=== PATIENT | male | born 1970 | race Two or more races ===

== ENCOUNTER 2025-04-15 17:36 | Inpatient (IN) | payer MEDICAID, OTHER, SELFPAY ==
[2025-04-15 17:55] VITALS: BP 150/79; PULSE 89; RESP 18; TEMP 37.2; O2SAT 99; BMI 36.7
[2025-04-15 18:01] VITALS: BP 150/79; PULSE 89; RESP 18; TEMP 37.2; O2SAT 99
--- NOTE | 2025-04-15 18:02 | ED.GENADULT ---
HPI - General Adult General Chief complaint: Psychiatric Symptoms Stated complaint: depression Time Seen by Provider: 04/15/25 17:59 Source: patient, RN notes reviewed and video journalist (jerri) Mode of arrival: EMS Limitations: language barrier History of Present Illness HPI narrative: 54-year-old male presents via EMS for evaluation of suicidal ideation. The patient has a long history of depression, reports being at [facility] where he was transported from, because he was recently at [facility] for treatment of depression. Patient states he was discharged too early from his treatment center. He does not feel that he receive the help that he wanted. 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 Patient denies any homicidal ideation. He does confirm that he has had suicidal ideation without a specific plan. He denies any SI at this time. He does report being homeless. 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 Patient states he has been battling severe depression. He has no physical complaints at this time. Related Data Home Medications ?Medication ?Instructions ?Recorded ?Confirmed amlodipine 10 mg tablet 10 mg PO DAILY 04/15/25 04/15/25 clonazepam 2 mg tablet 2 mg PO BID 04/15/25 04/16/25 doxepin 50 mg capsule 50 mg PO BEDTIME 04/15/25 04/15/25 fenofibrate 50 mg capsule 145 mg PO DAILY 04/15/25 04/15/25 hydrocortisone 1 % topical cream 1 appl topical BID PRN Itching 04/15/25 04/15/25 lithium carbonate 150 mg capsule 300 mg PO QNOON 04/15/25 04/15/25 lithium carbonate 300 mg tablet 600 mg PO BEDTIME 04/15/25 04/15/25 lurasidone 40 mg tablet 40 mg PO QPM 04/15/25 04/15/25 melatonin 3 mg tablet 6 mg PO BEDTIME 04/15/25 04/15/25 meloxicam 15 mg tablet 15 mg PO DAILY 04/15/25 04/15/25 sertraline 50 mg tablet 50 mg PO DAILY 04/15/25 04/15/25 Allergies Allergy/AdvReac Type Severity Reaction Status Date / Time No Known Allergies (No Known Allergy Unverified 04/15/25 17:59 Allergies*) Review of Systems Constitutional: Constitutional: Denies headache(s) ENT: Denies headache(s) Cardiovascular: Cardiovascular: Denies chest pain at rest Respiratory: Respiratory: Denies cough Neurologic: Denies headache(s) Psychiatric: Psychiatric: Reports anxiety and Reports depression [facility] Social History Social History (System 11/03/24 @ 10:30 by Miesha Wade) Household Members: None Housing: Homeless Do you presently have visiting nurse or other home services: No Patient Tobacco Use Status: Never used Tobacco Smoked in Last 30 Days: No Use of substances other than those prescribed or required for medical reasons: No Have you been hit, kicked, punched, or otherwise hurt by someone within the past year? If so, by whom?: No Do you feel safe in your current relationship?: No Current Relationship Is there a partner from a previous relationship who is making you feel unsafe now?: No Are you made to feel afraid or neglected: No Advance Directives: No Advance Directives Information Provided: No Do you have a plan to hurt others: No Plan Recently lost weight without trying: No How much weight loss: Not applicable Eating poorly because of decreased appetite: No Nutrition screen score: 0 Nutrition Risks: No Nutritional Risk Poor oral hygiene: No Physical Exam ED Vital Signs: Vital Signs - 24 hr 04/17/25 16:28 04/18/25 06:34 Temperature 97.3 F 97.4 F Pulse Rate 72 64 Respiratory Rate 18 16 Blood Pressure 134/77 114/77 Pulse Oximetry 98 98 Oxygen Delivery Method Room Air Room Air BMI result Body Mass Index 36.7 Eyes General: appearance normal, both eyes and all related structures Resp Other: Lung sounds clear throughout Cardio Rate: regular rate Rhythm: regular rhythm Extrem Other: no calf tenderness or pedal edema bilaterally Psych Other: tearful Appearance: other Affect: Anxious affect present Attitude: cooperative Course Course Course Narrative: April 15, 2025, 8:00 p.m. patient with mild elevation in BUN and creatinine. Suspect mild dehydration. He is unaware of any known history of renal disease. Patient will be given IV fluids. JS April 15, 2025, 8:50 p.m. patient seen and evaluated by the care team, he will be a inpatient bed search. JS. April 15, 2025, 10:00 p.m. patient resting comfortably at this time. Bed search continues. CHRIS Time: 02:00 Date: 04/16/25 Provider: OWEN Beltran Patient in physician observation for psychiatric evaluation.? No acute events reported overnight. No current complaints. VS stable.? Patient is in bed search status/pending CARE team evaluation. Will continue to monitor. Reevaluation(s) Reevaluation #1: Time: 10:48 Date: 04/17/25 Provider: Joaquin Guadarrama MD Patient in physician observation for psychiatric evaluation.? No acute events reported overnight. No current complaints. VS stable.? Patient is in bed search status/pending CARE team evaluation. Will continue to monitor. Reevaluation #2: 9:43 AM 04/18/2025 (Dr. Freeman Mast): Patient in physician observation for psychiatric evaluation.? No acute events reported overnight. Medications Administered Generic Name Dose Route Start Last Admin Trade Name Freq PRN Reason Stop Dose Admin Amlodipine Besylate 10 mg 04/15/25 19:00 04/18/25 08:54 Amlodipine Besylate 10 Mg Tablet PO 10 mg DAILY JOSEFA Administration Protocol Clonazepam 2 mg 04/16/25 21:00 04/18/25 08:54 Clonazepam 1 Mg Tablet PO 2 mg BID JOSEFA Administration Doxepin HCl 50 mg 04/15/25 21:00 04/17/25 20:17 Doxepin Hcl 25 Mg Capsule PO 50 mg BEDTIME JOSEFA Administration Fenofibrate 134 mg 04/16/25 09:00 04/18/25 09:40 Fenofibrate,Micronized 134 Mg Capsule PO 134 mg DAILY JOSEFA Administration Hydrocortisone 1 appl 04/15/25 18:53 04/18/25 09:39 Hydrocortisone 1 % Cream 28.35 Gm Tube TOPICAL 1 appl BID PRN Administration Itching Protocol [place] Carbonate 300 mg 04/16/25 12:00 04/18/25 12:14 [place] Carbonate 300 Mg Capsule PO 300 mg DAILY@1200 JOSEFA Administration [place] Carbonate 600 mg 04/15/25 21:00 04/17/25 20:17 [place] Carbonate 300 Mg Capsule PO 600 mg BEDTIME JOSEFA Administration Lurasidone HCl 40 mg 04/15/25 19:00 04/17/25 20:17 Lurasidone Hcl 40 Mg Tablet PO 40 mg BEDTIME JOSEFA Administration Melatonin 6 mg 04/15/25 21:00 04/17/25 20:17 Melatonin 3 Mg Tablet PO 6 mg BEDTIME JOSEFA Administration Naproxen 500 mg 04/15/25 21:00 04/18/25 08:54 Naproxen 500 Mg Tablet PO 500 mg BID JOSEFA Administration Sertraline HCl 50 mg 04/15/25 19:00 04/18/25 08:54 Sertraline Hcl 50 Mg Tablet PO 50 mg DAILY JOSEFA Administration Discontinued Medications Generic Name Dose Route Start Last Admin Trade Name [place] PRN Reason Stop Dose Admin Clonazepam 4 mg 04/15/25 19:00 04/16/25 09:00 Clonazepam 1 Mg Tablet PO 2 mg DAILY JOSEFA Administration Sodium Chloride 1,000 mls @ 999 mls/hr 04/15/25 20:15 04/15/25 22:00 Ns IV 04/15/25 21:15 Infused .Q1H1M JOSEFA Infusion Medical Decision Making Medical Decision Making MDM Narrative: 54-year-old male with a history of depression, increased depression as well as suicidal ideation. Differential Diagnosis Differential Diagnoses: The differential diagnosis associated with the presentation includes Depression PTSD Psychosis Anxiety Admission/Observation Consideration of admission/observation: Escalation of care including admission/observation considered Lab Data 04/15/25 18:48 04/15/25 18:48 Labs: Lab Results 04/15/25 04/15/25 Range/Units 18:48 20:45 WBC 7.6 (4.8-10.8) X10*3/uL RBC 4.60 (4.60-5.80) X10*6/uL Hgb 13.3 L (14.0-18.0) g/dl Hct 39.4 L (42.0-52.0) % MCV 85.7 (80.0-98.0) fL MCH 28.9 (27.0-33.0) pg MCHC 33.8 (31.0-36.0) g/dl RDW 13.5 (11.0-16.0) % Plt Count TNP MPV 12.0 (9.4-12.4) fL Immature Gran % (Auto) 0.4 (0.0-0.4) % Neut % (Auto) 67.5 (45-73) % Lymph % (Auto) 20.7 (20-40) % [place] % (Auto) 7.2 (2-11) % Eos % (Auto) 3.4 (0-4) % Baso % (Auto) 0.8 (0-2) % Lymph # (Auto) 1.6 (1.2-4.9) X10*3/uL [place] # (Auto) 0.6 (0.1-1.2) X10*3/uL Eos # (Auto) 0.3 (0.0-0.4) X10*3/uL Baso # (Auto) 0.1 (0.0-0.2) X10*3/uL Abs Immat Gran (auto) 0.03 (0.00-0.03) X10*3/uL Absolute Neuts (auto) 5.1 (2.0-8.3) x10*3/uL Absolute Nucleated RBC 0.000 (0.0-0.012) X10*3/uL Nucleated RBC % (auto) 0.0 (0.0-0.2) /100WBC Smear Tech's Comments VERIFIED Sodium 140 (135-145) mmol/L Potassium 3.7 (3.3-5.1) mmol/L Chloride 105 (96-108) mmol/L Carbon Dioxide 23 (22-29) mmol/L Anion Gap 16 (12-20) BUN 17 H (9-16) mg/dL Creatinine 1.69 H (0.5-1.4) mg/dL Estim Creat Clear Calc 47.0 Estimated GFR 42 Random Glucose 73 (60-115) mg/dL Calcium 9.9 (8.4-10.2) mg/dL Total Bilirubin 0.3 (0.0-1.0) mg/dL AST 26 (5-37) U/L ALT 18 (0-40) U/L Alkaline Phosphatase 74 (39-117) U/L Total Protein 7.3 (6.5-8.0) g/dL Albumin 4.3 (3.5-5.0) g/dL Urine Color Yellow Urine Appearance Clear Urine pH 7.0 (5.0-9.0) Ur Specific [place] 1.010 (1.005-1.025) Urine Protein Negative (Neg-Trace) mg/dL Urine Glucose (UA) Negative (Negative) mg/dL Urine Ketones Negative (Negative) mg/dL Urine Blood Negative (Negative) Urine Nitrite Negative (Negative) Ur Leukocyte Esterase Negative (Negative) Salicylates < 5.0 L (15-30) mg/dL Urine Opiates Screen Not Detected (Not Detect) Ur Buprenorphine Scrn Not Detected (Not Detect) ng/mL Ur Oxycodone Screen Not Detected (Not Detect) ng/mL Urine Methadone Screen Not Detected (Not Detect) ng/mL Urine Fentanyl Screen Not Detected (Not Detect) Acetaminophen < 3 (<30) mcg/mL Ur Barbiturates Screen Not Detected (Not Detect) Ur Phencyclidine Scrn Not Detected (Not Detect) Ur Amphetamines Screen Not Detected (Not Detect) U Benzodiazepines Scrn POSITIVE H (Not Detect) [place] 0.74 (0.60-1.20) mmol/L Urine Cocaine Screen Not Detected (Not Detect) U Marijuana (THC) Screen Not Detected (Not Detect) Ethyl Alcohol < 10 mg/dL Discharge Plan Discharge Clinical Impression: Suicidal ideation, Depression Patient Disposition: Admitted As Inpatient Discharge Date/Time: 04/18/25 13:13
--- NOTE | 2025-04-15 18:05 | PC.NURSE ---
Addendum entered by Karley Bee RN 04/15/25 18:37: Pts medications not populated for med rec therefore each medication was manually entered by this RN based on information on Rx bottles. tube blower Haley assists with interpretation of instructions on some Rx bottle as they are in [place]. Pt reports he last took his medications on 04/14/25 and is due for his meds at this time. Med Red completed at this time. ED Provider Shai made aware for ordering. Custody of medications to be handed off to on coming overnight RN for inventory and securement in the pharmacy due to time constraints. Original Note: Pt comes to ED via EMS for severe depression. EMS reports Pt called after leave [facility] and being kicked out of his [employer] [facility] program for threatening to shoot staff. On arrival to [facility], Pt is tearful and reports thoughts of SI with no plan. He states he is homeless now with no program to go to. He denies any HI at this time. 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 Pt arrives with bag of personal medications. Medications will be inventoried, med rec will be completed, and meds will be sent to pharmacy. ED provider at bedside now.
--- OUTSIDE RECORDS SUMMARY | 2025-04-15 18:47 | XMS_ITS | Encounter Summary ---
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 Answer Date of Assessment Author No 02/13/2025 9:45 PM EDT Michael Funes RN * Are you blind or do you have serious difficulty seeing, even when wearing glasses? Answer Date of Assessment Author No 02/13/2025 9:45 PM PERLITAT Michael Funes RN * Do you have serious difficulty walking or climbing stairs? Answer Date of Assessment Author No 02/13/2025 9:45 PM Michael Richard RN * Do you have serious difficulty dressing or bathing? Answer Date of Assessment Author No 02/13/2025 9:45 PM Michael Richard RN * Because of a physical, mental, or emotional condition, do you have serious difficulty doing errandsalone such as visiting the doctor? Answer Date of Assessment Author No 02/13/2025 9:45 PM EDT Michael Funes RN documented as of this encounter Mental Status * Because of a physical, mental, or emotional condition, do you have serious difficulty concentrating, remembering, or making decisions? (5 years old or older) Answer Entry Date Author No 02/13/2025 9:45 PM EDT Michael Funes RN documented in this encounter Plan of Treatment Not on file documented as of this encounter Procedures Procedure Name Priority Date/Time Associated Diagnosis Comments BASIC METABOLIC PANEL Routine 02/16/2025 7:00 AM EDT Other group home (current) drug therapy documented in this encounter Results * (ABNORMAL) Basic metabolic panel (02/16/2025 7:00 AM EDT) Sodium 138 133 - 145 mmol/L LAB CHEMISTRY METHOD 02/16/2025 12:10 PM [facility] Potassium 5.0 3.5 - 5.5 mmol/L LAB CHEMISTRY METHOD 02/16/2025 12:10 PM [facility] Comment:Hemolysis present Chloride 106 96 - 110 mmol/L LAB CHEMISTRY METHOD 02/16/2025 12:10 PM [facility] CO2 23 21 - 32 mmol/L LAB CHEMISTRY METHOD 02/16/2025 12:10 PM [facility] Anion Gap 9 3 - 11 LAB CHEMISTRY METHOD 02/16/2025 12:10 PM [facility] Glucose 49(L) 70 - 100 mg/dL LAB CHEMISTRY METHOD 02/16/2025 12:10 PM [facility] Comment:Results verified by repeat testing BUN 23 5 - 25 mg/dL LAB CHEMISTRY METHOD 02/16/2025 12:10 PM [facility] Creatinine 1.19 0.70 - 1.30 mg/dL LAB CHEMISTRY METHOD 02/16/2025 12:10 PM [facility] eGFR 73 >=60 mL/min/1. 73m2 LAB CHEMISTRY METHOD 02/16/2025 12:10 PM EDT [facility] Comment:Calculation based on the Chronic Kidney Disease Epidemiology Collaboration (CKD-EPI) equation refit without adjustment for race. BUN/Creatinine Ratio 19.3 LAB CHEMISTRY METHOD 02/16/2025 12:10 PM EDT [facility] Calcium 9.5 8.5 - 10.5 mg/dL LAB CHEMISTRY METHOD 02/16/2025 12:10 PM EDT [facility] Blood Venous blood specimen / Unknown Venipuncture / Unknown 02/16/2025 7:00 AM EDT 02/16/2025 10:04 AM EDT us Delores Thomson BEADER TENDER LAB BLOOD ORDERABLES Final Result [facility] [address] [place] [address], documented in this encounter Visit Diagnoses Diagnosis Other group home (current) drug therapy documented in this encounter Care Teams Call Center Team Leader Relationship Specialty Start Date End Date Physician, No Pcp PCP - General 01/03/25 documented as of this encounter
--- OUTSIDE RECORDS SUMMARY | 2025-04-15 18:47 | XMS_ITS | Clinical Summary ---
Author Organization [facility] Address [address] [place] [address] Phone Care Team Providers Care Commutator Tester Name Role Phone Physician, No Pcp Primary Care Provider Unavaila ble Allergies No known active allergies Medications diclofenac (VOLTAREN) 1 % topical gel Apply 2 g topically 2 (two) times a day. Active fenofibrate (TRICOR) 145 mg tablet Take 1 tablet (145 mg total) by mouth 1 (one) time each day. Active sertraline (ZOLOFT) 100 mg tablet Take 1.5 tablets (150 mg total) by mouth 1 (one) time each day. Active meloxicam (MOBIC) 15 mg tablet Take 1 tablet (15 mg total) by mouth 1 (one) time each day. Active clonazePAM (KlonoPIN) 2 mg tablet Take 1 tablet (2 mg total) by mouth 2 (two) times a day. Max Daily Amount: 4 mg Active amLODIPine (NORVASC) 5 mg tablet Take 1 tablet (5 mg total) by mouth 1 (one) time each day. Active gabapentin (NEURONTIN) 800 mg tablet Take 1 tablet (800 mg total) by mouth 3 (three) times a day. Active lithium 600 mg capsule Take 1 capsule (600 mg total) by mouth at bedtime. Active melatonin 3 mg tablet Take 2 tablets (6 mg total) by mouth at bedtime. Active cloNIDine (CATAPRES) 0.1 mg tablet Take 1 tablet (0.1 mg total) by mouth 1 (one) time each day. Active doxepin (SINEquan) 50 mg capsule Take 1 capsule (50 mg total) by mouth at bedtime. Active lurasidone (LATUDA) 60 mg tablet Take 1 tablet (60 mg total) by mouth at bedtime. Active lithium 300 mg capsule Take 1 capsule (300 mg total) by mouth 1 (one) time each day. Active Encounters Date Type Department Care Team Description 02/16/2025 Lab Requisition [facility] - Main Lab [address] [place] [address] Delores Thomson FNP Other fdc (current) drug therapy 02/16/2025 Lab Requisition [facility] - Main Lab [address] [place] [address] Albertina Garcia NP Other fdc (current) drug therapy 02/13/2025 9:24 PM EDT - 02/15/2025 2:00 PM EDT Emergency [facility] Emergency [address] [place] [address] Gloria Jackson DO Landry, Jonathan P, MD Suicidal ideation (Primary Dx); Visual hallucination; Polysubstance abuse ([facility] V24, [facility] V28) Discharge Disposition: Psych[facility] Hospital from Last 3 Months Medical History Medical History Date Comments DJD (degenerative joint disease) per EMR/ chronic pain left knee Bipolar 2 disorder ([facility] V24, [facility] V28) per emr Hypertension per emr Hepatitis C per EMR Social History Tobacco Use Types Packs/Day Years Used Date Smoking Tobacco: Never Tobacco Cessation:Counseling Given: Not Answered Alcohol Use Standard Drinks/Week Comments Not Currently 0 (1 standard drink = 0.6 oz pur e alcohol) Sex and Gender Information Value Date Recorded Sex Assigned at Not on file Legal Sex Male 5:01 AM EST Gender Identity Not on file Sexual Orientation Not on file Obstetrics History Last Filed Vital Signs Vital Sign Reading Time Taken Comments Blood Pressure 141/87 02/15/2025 1:29 PM EDT Pulse 82 02/15/2025 1:29 PM EDT Temperature 36.6 C (97.9 F) 02/15/2025 1:29 PM EDT Respiratory Rate 18 02/15/2025 1:29 PM EDT Oxygen Saturation 96% 02/15/2025 1:29 PM EDT Inhaled Oxygen Concentration - - Weight 90.7 kg (200 lb) 02/13/2025 9:44 PM EDT Height 152.4 cm (5') 02/13/2025 9:44 PM EDT Body Mass Index 39.06 02/13/2025 9:44 PM EDT Plan of Treatment Health Maintenance Due Date Last Done Comments Hepatitis A Vaccines (1 of 2 - Risk 2-dose series) 1989 Hepatitis B Vaccines (1 of 3 - 19+ 3-dose series) 1989 Pneumococcal Vaccine: 50+ Years (1 of 1 - PCV) 2020 Zoster Vaccines (1 of 2) 2020 Colorectal Cancer Screening: Colonoscopy 07/07/2022 HIV Screening 07/07/2022 Hepatitis C Screening 07/07/2022 Social Influencers of Health Screening 07/07/2022 Depression Screening 08/04/2024 COVID-19 Vaccine ( season) 2025 01/03/2021, 12/12/2020 Influenza Vaccine (#1) 2025 04/19/2021 Hypertension/CHF/CAD Annual BMP Blood Test 02/16/2026 02/16/2025, 02/14/2025, 02/13/2025, Additional history exists Cholesterol Screening (Lipid Panel) 02/16/2030 02/16/2025, 11/04/2022, 12/08/2020 DTaP,Tdap,and Td Vaccines (2 - Td or Tdap) 04/19/2031 04/19/2021 HIB Vaccines Aged Out No longer eligi ble based on patient's age to complete this topic HPV Vaccines Aged Out No longer eligi ble based on patient's age to complete this topic IPV Vaccines Aged Out No longer eligi ble based on patient's age to complete this topic MMR Vaccines Aged Out No longer eligi ble based on patient's age to complete this topic Meningococcal ACWY Vaccine Aged Out N o longer eligible based on patient's age to complete this topic Meningococcal B Vaccine Aged Out No l onger eligible based on patient's age to complete this topic RSV Immunization Patients Under 20 months Aged Out No longer eligible based on patient's age to complete this topic Varicella Vaccines Aged Out No longer eligible based on patient's age to complete this topic Procedures Procedure Name Priority Date/Time Associated Diagnosis Comments BASIC METABOLIC PANEL Routine 02/16/2025 7:00 AM EDT Other material assembler (current) drug therapy HEMOGLOBIN A1C Routine 02/16/2025 7:00 AM EDT Other material assembler (current) drug therapy LIPID PANEL WITH REFLEX TO DIRECT LDL Routine 02/16/2025 7:00 AM EDT Other fdc (current) drug therapy GLUCOSE, RANDOM Routine 02/16/2025 7:00 AM EDT Other fdc (current) drug therapy CT HEAD WO CONTRAST STAT 02/15/2025 1 2:35 PM EDT ECG 12-LEAD STAT 02/14/2025 3:59 AM EDT BASIC METABOLIC PANEL STAT 02/14/2025 3:37 AM EDT ECG ANNOTATED 02/14/2025 CBC WITH AUTO DIFFERENTIAL STAT 02/13/2025 10:08 PM EDT METHADONE SCREEN, URINE STAT 02/13/2025 10:08 PM EDT PHENCYCLIDINE, URINE STAT 02/13/2025 10:08 PM EDT BUPRENORPHINE SCREEN, URINE STAT 02/13/2025 10:08 PM EDT DRUG ABUSE SCREEN 8A PANEL, URINE STAT 02/13/2025 10:08 PM EDT SALICYLATE LEVEL STAT 02/13/2025 10:0 8 PM EDT ACETAMINOPHEN LEVEL STAT 02/13/2025 1 0:08 PM EDT ETHANOL STAT 02/13/2025 10:08 PM EDT COMPREHENSIVE METABOLIC PANEL STAT 02/13/2025 10:08 PM EDT CBC AND DIFFERENTIAL STAT 02/13/2025 10:08 PM EDT from Last 3 Months Results * (ABNORMAL) Lipid panel with reflex to direct LDL (02/16/2025 7:00 AM EDT) Cholesterol 190 0 - 200 mg/dL LAB CHEMISTRY METHOD 02/16/2025 12:36 PM EDT [facility] Triglycerides 88 0 - 150 mg/dL LAB CHEMISTRY METHOD 02/16/2025 12:36 PM EDT [facility] HDL 71 >=40 mg/dL LAB CHEMISTRY METHOD 02/16/2025 12:36 PM EDT [facility] LDL Calculated 101(H) 0 - 100 mg/dL LAB CHEMISTRY METHOD 02/16/2025 12:36 PM EDT [facility] VLDL Cholesterol Prieto 17.6 mg/dL LAB CHEMISTRY METHOD 02/16/2025 12:36 PM EDT [facility] Non HDL Chol. (LDL+VLDL) 119 <145 mg/dL LAB CHEMISTRY METHOD 02/16/2025 12:36 PM EDT [facility] Chol/HDL Ratio 2.7 0.0 - 4.4 LAB CHEMISTRY METHOD 02/16/2025 12:36 PM EDT [facility] Blood Venous blood specimen / Unknown Venipuncture / Unknown 02/16/2025 7:00 AM EDT 02/16/2025 10:07 AM EDT us Albertina Moya NP LAB BLOOD ORDERABLES Final Re sult [facility] [address] [place] [address], * Hemoglobin A1c (02/16/2025 7:00 AM EDT) Hemoglobin A1C 5.3 <6.5 % LAB CHEMISTRY METHOD 02/16/2025 12:37 PM EDT [facility] Mean Bld Glu Estim. 105 mg/dL LAB CHEMISTRY METHOD 02/16/2025 12:37 PM EDT [facility] Blood Venous blood specimen / Unknown Venipuncture / Unknown 02/16/2025 7:00 AM EDT 02/16/2025 10:07 AM EDT us Albertina Staple V, WAY INSPECTOR LAB BLOOD ORDERABLES Final Re sult Performing Organization Address [facility]/ZIP Co de Phone Number [facility] [address] [place] [address], [place] [phone] * (ABNORMAL) Glucose, random (02/16/2025 7:00 AM EDT) Glucose 49(L) 70 - 100 mg/dL LAB CHEMISTRY METHOD 02/16/2025 12:35 PM EDT [facility] Blood Venous blood specimen / Unknown Venipuncture / Unknown 02/16/2025 7:00 AM EDT 02/16/2025 10:07 AM EDT us Albertina Staple V, WAY INSPECTOR LAB BLOOD ORDERABLES Final Re sult Performing Organization Address [facility] de Phone Number [facility] [address] [place] [address], [place] [phone] * (ABNORMAL) Basic metabolic panel (02/16/2025 7:00 AM EDT) Only the most recent of2 resultswithin the time period is included. Sodium 138 133 - 145 mmol/L LAB CHEMISTRY METHOD 02/16/2025 12:10 PM EDT [facility] Potassium 5.0 3.5 - 5.5 mmol/L LAB CHEMISTRY METHOD 02/16/2025 12:10 PM EDT [facility] Comment:Hemolysis present Chloride 106 96 - 110 mmol/L LAB CHEMISTRY METHOD 02/16/2025 12:10 PM EDT [facility] CO2 23 21 - 32 mmol/L LAB CHEMISTRY METHOD 02/16/2025 12:10 PM EDT [facility] Anion Gap 9 3 - 11 LAB CHEMISTRY METHOD 02/16/2025 12:10 PM EDT [facility] Glucose 49(L) 70 - 100 mg/dL LAB CHEMISTRY METHOD 02/16/2025 12:10 PM EDT [facility] Comment:Results verified by repeat testing BUN 23 5 - 25 mg/dL LAB CHEMISTRY METHOD 02/16/2025 12:10 PM EDT [facility] Creatinine 1.19 0.70 - 1.30 mg/dL LAB CHEMISTRY METHOD 02/16/2025 12:10 PM EDT [facility] eGFR 73 >=60 mL/min/1. 73m2 LAB CHEMISTRY METHOD 02/16/2025 12:10 PM EDT [facility] Comment:Calculation based on the Chronic Kidney Disease Epidemiology Collaboration (CKD-EPI) equation refit without adjustment for race. BUN/Creatinine Ratio 19.3 LAB CHEMISTRY METHOD 02/16/2025 12:10 PM EDT [facility] Calcium 9.5 8.5 - 10.5 mg/dL LAB CHEMISTRY METHOD 02/16/2025 12:10 PM EDT [facility] Blood Venous blood specimen / Unknown Venipuncture / Unknown 02/16/2025 7:00 AM EDT 02/16/2025 10:04 AM EDT us Delores Thomson CONSERVATION BIOLOGY PROFESSOR LAB BLOOD ORDERABLES Final Result [facility] [address] [place] [address], * CT Head wo Contrast (02/15/2025 12:35 PM EDT) Anatomical Region Laterality Modality Head and Neck Computed Tomogra phy 02/15/2025 1:07 PM EDT Impressions 02/15/2025 1:08 PM EDT No acute findings. -------- FINAL REPORT -------- Dictated By: Price Tyler Dictated Date: 02/15/2025 13:07 ET Assigned Physician: Price Tyler Reviewed and Electronically Signed By: Price Tyler Signed Date: 02/15/2025 13:08 ET Workstation ID: [id number] Transcribed By: Self Edit Transcribed Date: 02/15/2025 13:07 ET Narrative 02/15/2025 1:08 PM EDT PROCEDURE: Noncontrast head CT. HISTORY: Mental status change, unknown cause. COMPARISON: None. TECHNIQUE: Noncontrast head CT with coronal and sagittal reformats. Dose length product: 809 mGy-cm. FINDINGS: BRAIN: No hemorrhage, edema, mass, or extra-axial fluid collection. No CT evidence of an acute large vessel infarct. Ventricles and sulci are age commensurate. Atherosclerotic calcifications of the carotid siphons. ORBITS: Normal. SINUSES/MASTOIDS: Normal. CALVARIUM: Normal. OTHER: The skull base soft tissues are normal. Procedure Note Price Tyler MD - 02/15/2025 PROCEDURE: Noncontrast head CT. HISTORY: Mental status change, unknown cause. COMPARISON: None. TECHNIQUE: Noncontrast head CT with coronal and sagittal reformats. Dose length product: 809 mGy-cm. FINDINGS: BRAIN: No hemorrhage, edema, mass, or extra-axial fluid collection. No CTevidence of an acute large vessel infarct. Ventricles and sulci are agecommensurate. Atherosclerotic calcifications of the carotid siphons. ORBITS: Normal. SINUSES/MASTOIDS: Normal. CALVARIUM: Normal. OTHER: The skull base soft tissues are normal. IMPRESSION: No acute findings. -------- FINAL REPORT -------- Dictated By: Price Tyler Dictated Date: 02/15/2025 13:07 ET Assigned Physician: Price Tyler Reviewed and Electronically Signed By: Price Tyler Signed Date: 02/15/2025 13:08 ET Workstation ID: [id number] Transcribed By: Self Edit Transcribed Date: 02/15/2025 13:07 ET Michael Moseley MD IMG CT PROCEDURES Final Res ult * ECG 12 lead (02/14/2025 3:59 AM EDT) Ventricular Rate ECG 77 BPM GEMUSE Atrial Rate 77 BPM GEMUSE P-R Interval 138 ms GEMUSE QRS Duration 90 ms GEMUSE Q-T Interval 428 ms GEMUSE QTc 484 ms GEMUSE P Wave [place] 59 degrees GEMUSE R [place] -3 degrees GEMUSE T [place] 4 degrees GEMUSE ECG Interpretation Normal sinus rhythm Nonspecific T wave abnormality Prolonged QT Abnormal ECG No previous ECGs available Confirmed by TANMAY MOORE ([id number]) on 02/14/2025 9:00:39 AM GEMUSE 02/14/2025 3:59 AM EDT 02/14/2025 9:00 AM EDT Lenny Nelson MD ECG ORDERABLES Final Result GEMUSE * ECG-Annotated (02/14/2025) Provider Onbase MD ECG ORDERABLES Final Result * (ABNORMAL) Drug abuse screen 8a panel, urine (02/13/2025 10:08 PM EDT) Amphetamine Screen, Ur Negative Negative LAB CHEMISTRY METHOD 10:44 PM EDT [facility] Comment:Certain OTC medicati ons containing ephedrine, phenylephrine, pseudoephedrine and phenylpropanolamine can cause false positive results. Barbiturate Screen, Ur Negative Negative LAB CHEMISTRY METHOD 5 10:44 PM EDT [facility] Benzodiazepine Screen, Ur Positive(A ) Negative LAB CHEMISTRY METHOD 10:44 PM EDT [facility] Cocaine Screen, Ur Positive(A ) Negative LAB CHEMISTRY METHOD 5 10:44 PM EDT [facility] Opiate Screen, Ur Negative Negative LAB CHEMISTRY METHOD 5 10:44 PM EDT [facility] Cannabinoid (THC) Screen, Ur Negative Negative LAB CHEMISTRY METHOD 5 10:44 PM EDT [facility] Comment:Specimens from patie nts taking pantoprazole sodium (Protonix) have been shown to produce false positive results. Oxycodone Screen, Ur Negative Negative LAB CHEMISTRY METHOD 5 10:44 PM EDT [facility] Fentanyl, Ur Negative Negative LAB CHEMISTRY METHOD 5 10:44 PM EDT [facility] Urine Urine specimen obtained by clean catch procedure / Unknown Non-blood Collection / Unknown 02/13/2025 10:08 PM EDT 02/13/2025 10:19 PM EDT [facility] - 02/13/2025 10:44 PM EDT Assay cutoffs: Amphetamines 1000 ng/mL Barbiturates 200 ng/mL Benzodiazepines 200 ng/mL Cocaine 300 ng/mL Fentanyl 1 ng/mL Opiates 300 ng/mL Oxycodone 100 ng/mL THC 50 ng/mL Semi-quantitative assay for screening purposes only. Unconfirmed screening result should not be used for non-medical purposes. *ALTERNATE METHOD CONFIRMATION DONE UPON REQUEST ONLY* Lenny Nelson MD LAB URINE ORDERABLES Final R esult [facility] [address] [place] [address], * Buprenorphine screen, urine (02/13/2025 10:08 PM EDT) Buprenorphine Screen Urine Negative Negative LAB CHEMISTRY METHOD 02/13/2025 10:44 PM EDT [facility] Urine Urine specimen obtained by clean catch procedure / Unknown Non-blood Collection / Unknown 02/13/2025 10:08 PM EDT 02/13/2025 10:19 PM EDT Narrative [facility] - 02/13/2025 10:44 PM EDT Assay cutoff 5 ng/mL Semi-quantitative assay for screening purposes only. Unconfirmed screening result should not be used for non-medical purposes. *ALTERNATE METHOD CONFIRMATION DONE UPON REQUEST ONLY* Lenny Nelson MD LAB URINE ORDERABLES Final R esult Performing Organization Address City/[facility]/ZIP Co de Phone Number [facility] [address] [place] [address], [place] [phone] * Methadone, urine (02/13/2025 10:08 PM EDT) Methadone Screen, Urine Negative Negative LAB CHEMISTRY METHOD 02/13/2025 10:44 PM EDT [facility] Comment: Assay cutoff 300 ng/mL Semi-quantitative assay for screening purposes only. Unconfirmed screening result should not be used for non-medical purposes. *ALTERNATE METHOD CONFIRMATION DONE UPON REQUEST ONLY* Urine Urine specimen obtained by clean catch procedure / Unknown Non-blood Collection / Unknown 02/13/2025 10:08 PM EDT 02/13/2025 10:19 PM EDT Lenny Nelson MD LAB URINE ORDERABLES Final R esult Performing Organization Address City/[facility]/ZIP Co de Phone Number [facility] [address] [place] [address], [place] [phone] * (ABNORMAL) CBC auto differential (02/13/2025 10:08 PM EDT) WBC 10.0 4.8 - 10.8 K/[facility] LAB HEMETOLOGY METHOD 02/13/2025 10:25 PM EDT [facility] RBC 4.60 4.50 - 5.50 M/mcL LAB HEMETOLOGY METHOD 02/13/2025 10:25 PM EDT [facility] Hemoglobin 13.3(L) 13.5 - 17.5 g/dL LAB HEMETOLOGY METHOD 02/13/2025 10:25 PM EDT [facility] Hematocrit 40.4(L) 42.0 - 54.0 % LAB HEMETOLOGY METHOD 02/13/2025 10:25 PM EDT [facility] MCV 87.4 79.0 - 98.0 FL LAB HEMETOLOGY METHOD 02/13/2025 10:25 PM EDT [facility] MCH 28.8 27.0 - 32.0 pcg LAB HEMETOLOGY METHOD 02/13/2025 10:25 PM EDT [facility] MCHC 32.9 32.0 - 37.0 g/dL LAB HEMETOLOGY [facility] RDW 14.2 11.0 - 15.0 % LAB HEMETOLOGY METHOD 02/13[facility]2025 10[facility] Platelets 251 130 - 400 K/mcL LAB HEMETOLOGY METHOD 02/13/2025 10:25 PM [facility] MPV 11.4(H) 7.0 - 11.0 FL LAB HEMETOLOGY METHOD 02/13[facility]2025 10[facility] NRBC 0.0 <1.0 % LAB HEMETOLOGY METHOD 02/13[facility]2025 10:[facility] NRBC Absolute 0.00 <0.10 K/mcL LAB HEMETOLOGY METHOD 02/13/2025 10:25 PM T [facility] Neutrophils Relative 76.5 % LAB HEMETOLOGY METHOD 02/13[facility]2025 10:[facility] Lymphocytes Relative 13.5 % LAB HEMETOLOGY METHOD 02/13/2025 10:25 PM [facility] Monocytes Relative 7.8 % LAB HEMETOLOGY METHOD 02/13/2025 10:25 PM EDT [facility] Eosinophils Relative 1.4 % LAB HEMETOLOGY METHOD 02/13/2025 10:25 PM EDT [facility] Basophils Relative 0.6 % LAB HEMETOLOGY METHOD 02/13/2025 10:25 PM EDT [facility] Immature Granulocytes Relative 0.2 % LAB HEMETOLOGY METHOD 02/13/2025 10:25 PM EDT [facility] Neutrophils Absolute 7.66(H) 1.50 - 7.00 K/mcL LAB HEMETOLOGY METHOD 02/13/2025 10:25 PM EDT [facility] Lymphocytes Absolute 1.35 1.00 - 5.00 K/mcL LAB HEMETOLOGY METHOD 02/13/2025 10:25 PM EDT [facility] Monocytes Absolute 0.78 0.20 - 1.00 K/mcL LAB HEMETOLOGY METHOD 02/13/2025 10:25 PM EDT [facility] Eosinophils Absolute 0.14 0.00 - 0.50 K/mcL LAB HEMETOLOGY METHOD 02/13/2025 10:25 PM EDT [facility] Basophils Absolute 0.06 0.00 - 0.20 K/mcL LAB HEMETOLOGY METHOD 02/13/2025 10:25 PM EDT [facility] Immature Granulocytes Absolute 0.02 0.00 - 0.03 K/mcL LAB HEMETOLOGY METHOD 02/13/2025 10:25 PM EDT [facility] Blood Venous blood specimen / Unknown Venipuncture / Unknown 02/13/2025 10:08 PM EDT 02/13/2025 10:18 PM EDT us Lenny Nelson MD LAB BLOOD ORDERABLES Final R esult [facility] [address] [place] [address], * Phencyclidine, urine (02/13/2025 10:08 PM EDT) PCP Scrn, Ur Negative Negative LAB CHEMISTRY METHOD 02/13/2025 10:44 PM EDT [facility] Comment: Assay cutoff 25 ng/mL Semi-quantitative assay for screening purposes only. Unconfirmed screening result should not be used for non-medical purposes. *ALTERNATE METHOD CONFIRMATION DONE UPON REQUEST ONLY* Urine Urine specimen obtained by clean catch procedure / Unknown Non-blood Collection / Unknown 02/13/2025 10:08 PM EDT 02/13/2025 10:19 PM EDT Lenny Nelson MD LAB URINE ORDERABLES Final R esult Performing Organization Address City/[facility]/ZIP Co de Phone Number [facility] [address] [place] [address], * Ethanol (02/13/2025 10:08 PM EDT) Ethanol Level <3 0 - 10 mg/dL LAB CHEMISTRY METHOD 02/13/2025 10:47 PM EDT [facility] Blood Venous blood specimen / Unknown Venipuncture / Unknown 02/13/2025 10:08 PM EDT 02/13/2025 10:18 PM EDT Lenny Nelson MD LAB BLOOD ORDERABLES Final R esult [facility] [address] [place] [address], [place] [phone] * (ABNORMAL) Acetaminophen level (02/13/2025 10:08 PM EDT) Acetaminophen Level <2.0(L) 10.0 - 30.0 mcg/mL LAB CHEMISTRY METHOD 02/13/2025 10:48 PM EDT [facility] Blood Venous blood specimen / Unknown Venipuncture / Unknown 02/13/2025 10:08 PM EDT 02/13/2025 10:18 PM EDT Lenny Nelson MD LAB BLOOD ORDERABLES Final R esult [facility] [address] [place] [address], [place] [phone] * (ABNORMAL) Salicylate level (02/13/2025 10:08 PM EDT) Salicylate Level <1.7(L) 2.0 - 29.0 mg/dL LAB CHEMISTRY METHOD 02/13/2025 10:47 PM EDT [facility] Blood Venous blood specimen / Unknown Venipuncture / Unknown 02/13/2025 10:08 PM EDT 02/13/2025 10:18 PM EDT Lenny Nelson MD LAB BLOOD ORDERABLES Final R esult [facility] [address] [place] [address], [place] [phone] * (ABNORMAL) Comprehensive metabolic panel (02/13/2025 10:08 PM EDT) Sodium 140 133 - 145 mmol/L LAB CHEMISTRY METHOD 02/13/2025 10:48 PM EDT [facility] Potassium 3.2(L) 3.5 - 5.5 mmol/L LAB CHEMISTRY METHOD 02/13/2025 10:48 PM EDT [facility] Chloride 106 96 - 110 mmol/L LAB CHEMISTRY METHOD 02/13/2025 10:48 PM EDT [facility] CO2 30 21 - 32 mmol/L LAB CHEMISTRY METHOD 02/13/2025 10:48 PM EDT [facility] Anion Gap 4 3 - 11 LAB CHEMISTRY METHOD 02/13/2025 10:48 PM [facility] Glucose 117(H) 70 - 100 mg/dL LAB CHEMISTRY METHOD 02/13/2025 10:48 PM [facility] BUN 24 5 - 25 mg/dL LAB CHEMISTRY METHOD 02/13/2025 10:48 PM [facility] Creatinine 1.62(H) 0.70 - 1.30 mg/dL LAB CHEMISTRY METHOD 02/13/2025 10:48 PM [facility] eGFR 50(L) >=60 mL/min/1. 73m2 LAB CHEMISTRY METHOD 02/13/2025 10:48 PM [facility] Comment:Calculation based on the Chronic Kidney Disease Epidemiology Collaboration (CKD-EPI) equation refit without adjustment for race. BUN/Creatinine Ratio 14.8 LAB CHEMISTRY METHOD 02/13/2025 10:48 PM [facility] Calcium 8.6 8.5 - 10.5 mg/dL LAB CHEMISTRY METHOD 02/13/2025 10:48 PM [facility] AST (SGOT) 20 10 - 42 unit/L LAB CHEMISTRY METHOD 02/13/2025 10:48 PM [facility] ALT (SGPT) 25 10 - 60 unit/L LAB CHEMISTRY METHOD 02/13/2025 10:48 PM [facility] Alkaline Phosphatase 94 42 - 121 unit/L LAB CHEMISTRY METHOD 02/13/2025 10:48 PM [facility] Total Protein 7.4 6.0 - 8.0 g/dL LAB CHEMISTRY METHOD 02/13/2025 10:48 PM [facility] Albumin 4.1 3.2 - 5.0 g/dL LAB CHEMISTRY METHOD 02/13/2025 10:48 PM [facility] Total Bilirubin 0.4 0.0 - 1.4 mg/dL LAB CHEMISTRY METHOD 02/13/2025 10:48 PM [facility] Blood Venous blood specimen / Unknown Venipuncture / Unknown 02/13/2025 10:08 PM EDT 02/13/2025 10:18 PM EDT us Lenny Nelson MD LAB BLOOD ORDERABLES Final R esult [facility] ([facility]) [facility] [address] [place] [address], from Last 3 Months Insurance MEDICAID - [place] Care Teams Commutator Tester Relationship Specialty Start Date End Date Physician, No Pcp PCP - General 01/03/25
--- OUTSIDE RECORDS SUMMARY | 2025-04-15 18:47 | XMS_ITS | Encounter Summary ---
Author Organization [employer] Address [address] [place] [address] Care Team Providers Care Final Inspection Supervisor Name Role Phone Physician, No Pcp Primary Care Provider Unavaila ble Encounter Details Date Type Department Care Team (Late st Contact Info) Description 02/16/2025 Lab Requisition [facility] - Main Lab [address] [facility] [address] [place] [address] Albertina Garcia NP [address] [place] [address] Other intermediate (current) drug therapy Social History Tobacco Use [...] 9:45 PM EDT Michael Funes RN * Because of a physical, mental, [...] Procedure Name Priority Date/Time Associated Diagnosis Comments LIPID PANEL WITH REFLEX TO DIRECT LDL Routine 02/16/2025 7:00 AM EDT Other intermediate school teacher (current) drug therapy HEMOGLOBIN A1C Routine 02/16/2025 7:00 AM EDT Other intermediate (current) drug therapy GLUCOSE, RANDOM Routine 02/16/2025 7:00 AM EDT Other intermediate school teacher (current) drug therapy documented in this encounter Results * Hemoglobin A1c (02/16/2025 7:00 AM EDT) Pathologist [facility] Hemoglobin A1C 5.3 <6.5 % LAB CHEMISTRY METHOD 02/16/2025 12:37 PM EDT [facility] Mean Bld Glu Estim. 105 mg/dL LAB CHEMISTRY METHOD 02/16/2025 12:37 PM EDT [facility] Blood Venous blood specimen / Unknown Venipuncture / Unknown 02/16/2025 7:00 AM EDT 02/16/2025 10:07 AM EDT us Albertina Moya NP LAB BLOOD ORDERABLES Final Re sult [facility] [address] [place] [address], [place] [phone] * (ABNORMAL) Lipid panel with reflex to direct LDL (02/16/2025 7:00 AM EDT) Cholesterol 190 0 - 200 mg/dL LAB CHEMISTRY METHOD 02/16/2025 12:36 PM EDT [facility] Triglycerides 88 0 - 150 mg/dL LAB CHEMISTRY METHOD 02/16/2025 12:36 PM EDT [facility] HDL 71 >=40 mg/dL LAB CHEMISTRY METHOD 02/16/2025 12:36 PM EDT [facility] LDL Calculated 101(H) 0 - 100 mg/dL LAB CHEMISTRY METHOD 02/16/2025 12:36 PM EDT [facility] VLDL Cholesterol Prieto 17.6 mg/dL LAB CHEMISTRY METHOD 02/16/2025 12:36 PM EDT [facility] Non HDL Chol. (LDL+VLDL) 119 <145 mg/dL LAB CHEMISTRY METHOD 02/16/2025 12:36 PM EDT [facility] Chol/HDL Ratio 2.7 0.0 - 4.4 LAB CHEMISTRY METHOD 02/16/2025 12:36 PM EDT [facility] Blood Venous blood specimen / Unknown Venipuncture / Unknown 02/16/2025 7:00 AM EDT 02/16/2025 10:07 AM EDT us Albertina Garcia V, SIGN WRITER LETTERER OR PAINTER LAB BLOOD ORDERABLES Final Re sult [facility] [address] [place] [address], * (ABNORMAL) Glucose, random (02/16/2025 7:00 AM EDT) Glucose 49(L) 70 - 100 mg/dL LAB CHEMISTRY METHOD 02/16/2025 12:35 PM EDT [facility] Blood Venous blood specimen / Unknown Venipuncture / Unknown 02/16/2025 7:00 AM EDT 02/16/2025 10:07 AM EDT us Albertina Staple V, SIGN WRITER LETTERER OR PAINTER LAB BLOOD ORDERABLES Final Re sult [facility] ([facility]) [facility] [address] [place] [address], documented in this encounter Visit Diagnoses Diagnosis Other intermediate (current) drug therapy documented in this encounter Care Teams Final Inspection Supervisor Relationship Specialty Start Date End Date Physician, No Pcp PCP - General 01/03/25 documented as of this encounter
--- OUTSIDE RECORDS SUMMARY | 2025-04-15 18:47 | XMS_ITS | Clinical Summary ---
Author Organization [employer] [facility] Address [address] [place] [address] Care Team Providers Care University Intern Name Role Phone Unavailable Primary Care Provider Unavailabl e Encounters Date Type Department Care Team Description 02/22/2025 Population Health Risk Score [facility] (C3) Department [address] [facility] [address] [place] [address] Provider, Population Health Generic from Last 3 Months Social History Tobacco Use Types Packs/Day Years Used Date Smoking Tobacco: Never Assessed Sex and Gender Information Value Date Recorded Sex Assigned at Not on file Legal Sex Male 9:24 PM EDT Gender Identity Not on file Sexual Orientation Not on file Plan of Treatment Health Maintenance Due Date Last Done Comments CT Colonography 1970 Colonoscopy 1970 Colorectal Cancer Screening 1970 Depression Screening 1970 FIT DNA/Cologuard 1970 FIT 1970 FOBT 1970 Lipid Panel 1970 SDOH Screening 1970 Sigmoidoscopy 1970 Disability Screening 1970 Alcohol/Substance Use Screening 1982 Tobacco Screening 1982 Hepatitis A Vaccines (1 of 2 - Risk 2-dose series) 1989 Hepatitis B Vaccines (1 of 3 - 19+ 3-dose series) 1989 Pneumococcal Vaccine: 50+ Years (1 of 1 - PCV) 2020 Zoster Vaccines (1 of 2) 2020 COVID-19 Vaccine (3 - 2024-2 6 season) 2025 01/03/2021, 12/12/2020 Influenza Vaccine (#1) 2025 04/19/2021 DTaP/Tdap/Td Vaccines (2 - T d or Tdap) 04/19/2031 04/19/2021 RSV Patients and Patients Aged 60 years or older (1 - 1-dose 75+ series) 2045 HIV Screening Completed 12/08/2020 HIB Vaccines Aged Out No longer eligi [...] patient's age to complete this topic Meningococcal Vaccine Aged Out No george khloe eligible based on patient's age to complete this topic RSV under 20 months Aged Out No longe r eligible based on patient's age to complete this topic Rotavirus Vaccines Aged Out No longer eligible based on patient's age to complete this topic
[2025-04-15 19:09] LABS: Cannabinoid Screen Urine Not Detected (Not Detect)
[2025-04-15 19:18] LABS: Hematocrit 39.4 % (42.0-52.0); Hemoglobin 13.3 g/dl (14.0-18.0); Imm Gran Abs Auto 0.03 X10*3/uL (0.00-0.03); Imm Gran Pct Auto 0.4 % (0.0-0.4); Lymphocytes Absolute Auto 1.6 X10*3/uL (1.2-4.9); MANUAL DIFF FLAG SCAN; Mean Corpuscular HGB Conc 33.8 g/dl (31.0-36.0); Mean Corpuscular Hemoglobin 28.9 pg (27.0-33.0); Mean Corpuscular Volume 85.7 fL (80.0-98.0); NRBC Abs Auto 0.000 X10*3/uL (0.0-0.012); NRBC Pct Auto 0.0 /100WBC (0.0-0.2); PLT CLUMP 1; Red Blood Count 4.60 X10*6/uL (4.60-5.80); SCAN SMEAR FLAG 1
[2025-04-15 19:22] LABS: Acetaminophen LAB < 3 mcg/mL (<30); Alanine Aminotransferase 18 U/L (0-40); Albumin Level 4.3 g/dL (3.5-5.0); Alkaline Phosphatase 74 U/L (39-117); Anion Gap 16 (12-20); Aspartate Amino Transferase 26 U/L (5-37); Blood Urea Nitrogen 17 mg/dL (9-16); Calcium 9.9 mg/dL (8.4-10.2); Carbon Dioxide 23 mmol/L (22-29); Chloride 105 mmol/L (96-108); Creatinine Clr Calc Pharmacy 47.0; Estimated Glomerular Filt Rate 42; Potassium 3.7 mmol/L (3.3-5.1); Salicylate < 5.0 mg/dL (15-30); Sodium 140 mmol/L (135-145); Total Protein 7.3 g/dL (6.5-8.0)
[2025-04-15 19:52] LABS: White Blood Count 7.6 X10*3/uL (4.8-10.8)
[2025-04-15 20:19] VITALS: BP 150/79
[2025-04-15 21:01] LABS: Lithium 0.74 mmol/L (0.60-1.20)
--- NOTE | 2025-04-15 21:20 | PC.NURSE ---
Pt aox3, calm and cooperative, resting at the bedside. [place] and drink provided. Medicated PO with night meds as per OCT. BUN/Creat are elevated. Pt reports no history of kidney disease. Provider made aware and a bolus of fluids ordered to be given. Charge made aware. Difficulty in obtaining IV line. 22G IV line L hand established. Pt tolerated well. 1:1 sitter at bedside for safety. Monitoring is ongoing.
[2025-04-15 23:53] LABS: Appearance Urine Clear; Glucose Urine UA Negative (Negative); PH 7.0 (5.0-9.0); Specific Gravity - Urine 1.010 (1.005-1.025)
--- NOTE | 2025-04-16 07:03 | PC.NURSE ---
Assumed care, report received. Pt is currently eating breakfast, he is calm and cooperative. saftey maintained.
[2025-04-16 07:37] VITALS: BP 127/75; PULSE 82; RESP 14; TEMP 36.4; O2SAT 100
--- NOTE | 2025-04-16 12:22 | PC.NURSE ---
Pt is calm and cooperative. he is assisted with obtaining phone numbers out of his cell phone. He is aware of the POC for a bed search and meets with the care team. He eats lunch and spends time calling family and in his room reading his bible.
[2025-04-16 14:19] VITALS: BP 122/66; PULSE 89; RESP 18; TEMP 36.3; O2SAT 97
--- NOTE | 2025-04-16 19:06 | PC.NURSE ---
This RN assumed pt care @ 1900. Pt a&ox4, no signs of distress. Pt sitting up in bed eating dinner Plan of care ongoing.
--- NOTE | 2025-04-16 21:33 | PC.NURSE ---
Pt a&ox4, no signs of distress. Pt ambulates with a steady gait Pt medicated per [facility] Plan of care ongoing.
--- NOTE | 2025-04-16 22:57 | PC.NURSE ---
Assumed care of patient at 2245, patient calm and cooperative, offering no complaints to this RN, respirations even and unlabored, continue plan of care for IPLOC
[2025-04-17 06:00] VITALS: RESP 16
[2025-04-17 07:39] VITALS: BP 133/91; PULSE 80; RESP 14; TEMP 36.3; O2SAT 96
--- NOTE | 2025-04-17 07:58 | PC.NURSE ---
Assumed care, report received. Pt is awake, he is eating breakfast and calls a family member. He denies SI/HI/AVH.
[2025-04-17] MEDS: Hydrocortisone 1 % Cream 28.35 GM TUBE 1 APPL TOPICAL (08:20)
--- NOTE | 2025-04-17 15:06 | PHA.MEDREC ---
Addendum entered by Misael Elise, PharmD 04/17/25 15:50: MED REC CHECKED BY [facility] Original Note: Pharmacy Consult ? Medication Reconciliation Pharmacy has completed the medication reconciliation. Confirm med rec done by nurse.
[2025-04-17 16:28] VITALS: BP 134/77; PULSE 72; RESP 18; TEMP 36.3; O2SAT 98
--- NOTE | 2025-04-17 20:17 | PC.NURSE ---
Pt medicated as per OCT. Refused naproxen states he is no pain.
[2025-04-18 06:34] VITALS: BP 114/77; PULSE 64; RESP 16; TEMP 36.3; O2SAT 98
--- NOTE | 2025-04-18 07:55 | ECG_ITS ---
Test Reason : PROLONGED QT Blood Pressure : */* mmHG Vent. Rate : 81 BPM Atrial Rate : 81 BPM P-R Int : 146 ms QRS Dur : 92 ms QT Int : 376 ms P-R-T Axes : 58 0 33 degrees QTcB Int : 436 ms Normal sinus rhythm with sinus arrhythmia Nonspecific T wave abnormality Abnormal ECG When compared with ECG of 19-May-2016 11:57, Nonspecific T wave abnormality now evident in Lateral leads Referred By: Froylan Warren Electronically Signed By: ESA KEITH
[2025-04-18] MEDS: Hydrocortisone 1 % Cream 28.35 GM TUBE 1 APPL TOPICAL (09:39)
--- NOTE | 2025-04-18 11:03 | PC.NURSE ---
Assumed care of this patient at this time, patient currently sleeping in bed. POC IPLOC bedsearch.
[2025-04-18 13:24] VITALS: BP 145/79; PULSE 69; RESP 16; TEMP 36.8; O2SAT 100
[2025-04-18 14:13] VITALS: BMI 35.9
--- NOTE | 2025-04-18 15:00 | PC.ADMIT ---
Admission assessment completed with in-house rd lab technician: Amber. Pt arrived on the unit at 1315 and is here on a CV. A&O x4. Pt is seeking services due to increased depression, SI (plan to kill self with fire arm), and delusions. Pt reports that he has had many recent stressors, including separation from of very recent marriage, homelessness, and loss of job and vehicle. He reports that he returned fire arm and license to carry due to suicidal thoughts. Pt currently denies AH, however, he has experienced them as recently as 1 month ago-not command. Pt reports that the AH were belittling him , however, he understands the difference between his own thoughts and the voices. Pt states that he was living in a home with several other people, however, he chose to leave so that he would avoid exposing himself to drug use. Now I am organized and just want to be tranquil. I don't want any problems . Skin check revealed several tattoos on arms and one on penis. Toxicology screening showed Benzo's, however, pt has a RX for Klonopin. During admission assessment, pt was pleasant and cooperative, made good eye contact, and offered insight.
[2025-04-18 20:00] VITALS: BP 142/96; PULSE 86; RESP 18; TEMP 37.3; O2SAT 98
--- NOTE | 2025-04-19 08:39 | HO.PM.IMCN ---
History of Present Illness Data of Consult Service Date: 04/19/25 Primary Care Provider: [facility] Reason for consult: Medical management 54-year-old male with a past medical history of depression, hypertension, undiagnosed sleep apnea, hep C, stage 3 chronic kidney disease, bipolar disorder, anxiety and dyslipidemia, presented to the ED for suicidal ideation. Patient reports a history of substance and alcohol use that he has been sober for 11 years. On exam patient's only complaint is that he has undiagnosed sleep apnea, he is scheduled for an outpatient sleep study which has not occurred concerns he is now inpatient. Review of his labs from the ED reveal no leukocytosis, no electrolyte derangements, no kidney or liver injury. Urinalysis was without infection. Drug screen was negative. On exam he denies any shortness of breath, dizziness, lightheadedness or any other concerning symptoms. Notably in early March patient was treated at [facility] for a pneumonia. At that time he underwent a CT of the head and a CT of the cervical spine which were both unremarkable. He was also treated for mild lithium toxicity. Assisted with visit by in-house buyer tobacco head. Review of Systems Review of Systems: Denies any shortness of breath, chest pain, dizziness, lightheadedness, abdominal pain or discomfort, nausea vomiting or diarrhea PMFSH Social History (System 11/03/24 @ 10:30 by Miesha Wade) Household Members: None Housing: Homeless Do you presently have visiting nurse or other home services: No Patient Tobacco Use Status: Never used Tobacco Smoked in Last 30 Days: No Use of substances other than those prescribed or required for medical reasons: No Currently Displaying Signs/Symptoms of Drug Intoxication Withdrawal: No Have you been hit, kicked, punched, or otherwise hurt by someone within the past year? If so, by whom?: No Do you feel safe in your current relationship?: No Current Relationship Is there a partner from a previous relationship who is making you feel unsafe now?: No Are you made to feel afraid or neglected: No Advance Directives: No Advance Directives Information Provided: No Do you have thoughts of harming others: None Do you have a plan to hurt others: No Plan Recently lost weight without trying: No How much weight loss: Not applicable Eating poorly because of decreased appetite: No Nutrition screen score: 0 Nutrition Risks: No Nutritional Risk Poor oral hygiene: No service: No Sexual orientation: Straight/Heterosexual Meds Allergies Allergy/AdvReac Type Severity Reaction Status Date / Time No Known Allergies (No Known Allergy Unverified 04/15/25 17:59 Allergies*) Active Medications: Current Medications Acetaminophen (Acetaminophen 325 Mg Tablet) 650 mg PO Q6H PRN PRN Reason: Headache/Pain, Scale 1-10 Al Hydroxide/Mg Hydroxide (Magnesium Hydrox/Alum Hydrox 30 Ml Oral.Susp) 30 ml PO Q6H PRN PRN Reason: Heartburn/Nausea Amlodipine Besylate (Amlodipine Besylate 10 Mg Tablet) 10 mg PO DAILY [facility]; Protocol Last Admin: 04/18/25 08:54 Dose: 10 mg Clonazepam (Clonazepam 1 Mg Tablet) 2 mg PO BID [facility] Last Admin: 04/18/25 20:05 Dose: 2 mg Doxepin HCl (Doxepin Hcl 25 Mg Capsule) 50 mg PO BEDTIME [facility] Last Admin: 04/18/25 20:04 Dose: 50 mg Fenofibrate (Fenofibrate,Micronized 134 Mg Capsule) 134 mg PO DAILY [facility] Last Admin: 04/18/25 09:40 Dose: 134 mg Hydrocortisone (Hydrocortisone 1 % Cream 28.35 Gm Tube) 1 appl TOPICAL BID PRN; Protocol PRN Reason: Itching Last Admin: 04/18/25 09:39 Dose: 1 appl Hydroxyzine HCl (Hydroxyzine Hcl 25 Mg Tablet) 25 mg PO Q6H PRN PRN Reason: mild anxiety [place] Carbonate ([place] Carbonate 300 Mg Capsule) 300 mg PO DAILY@1200 [facility] Last Admin: 04/18/25 12:14 Dose: 300 mg [place] Carbonate ([place] Carbonate 300 Mg Capsule) 600 mg PO BEDTIME [facility] Last Admin: 04/18/25 20:05 Dose: 600 mg Lurasidone HCl (Lurasidone Hcl 40 Mg Tablet) 40 mg PO BEDTIME JOSEFA Last Admin: 04/18/25 20:07 Dose: 40 mg Magnesium Hydroxide (Milk Of Magnesia 30 Ml Oral.Susp) 30 ml PO DAILY PRN PRN Reason: Constipation Melatonin (Melatonin 3 Mg Tablet) 6 mg PO BEDTIME [facility] Last Admin: 04/18/25 20:06 Dose: 6 mg Naproxen (Naproxen 500 Mg Tablet) 500 mg PO BID [facility] Last Admin: 04/18/25 20:06 Dose: 500 mg Nicotine (Nicotine 21 Mg Patch.Td24) 21 mg TRANSDERMA DAILY PRN PRN Reason: nicotine craving Nicotine Polacrilex (Nicotine Polacrilex 2 Mg Gum) 2 mg BUCCAL Q2H PRN PRN Reason: Nicotine Cravings Olanzapine (Olanzapine 5 Mg Tablet) 5 mg PO BID PRN PRN Reason: agitation Sertraline HCl (Sertraline Hcl 50 Mg Tablet) 50 mg PO DAILY [facility] Last Admin: 04/18/25 08:54 Dose: 50 mg Trazodone HCl (Trazodone Hcl 50 Mg Tablet) 50 mg PO BEDTIME MRX1 PRN PRN Reason: Insomnia Home Medications ?Medication ?Instructions ?Recorded ?Confirmed ?Last Taken ?Type amlodipine 10 mg tablet 10 mg PO DAILY 04/15/25 04/15/25 04/14/25 History clonazepam 2 mg tablet 2 mg PO BID 04/15/25 04/16/25 04/14/25 History doxepin 50 mg capsule 50 mg PO BEDTIME 04/15/25 04/15/25 04/14/25 History fenofibrate 50 mg capsule 145 mg PO DAILY 04/15/25 04/15/25 04/14/25 History hydrocortisone 1 % topical cream 1 appl topical BID PRN Itching 04/15/25 04/15/25 Unknown History lithium carbonate 150 mg capsule 300 mg PO QNOON 04/15/25 04/15/25 04/14/25 History lithium carbonate 300 mg tablet 600 mg PO BEDTIME 04/15/25 04/15/25 04/14/25 History lurasidone 40 mg tablet 40 mg PO QPM 04/15/25 04/15/25 04/14/25 History melatonin 3 mg tablet 6 mg PO BEDTIME 04/15/25 04/15/25 04/14/25 History meloxicam 15 mg tablet 15 mg PO DAILY 04/15/25 04/15/25 04/14/25 History sertraline 50 mg tablet 50 mg PO DAILY 04/15/25 04/15/25 04/14/25 History Physical Exam Vital Signs and Narrative: Vital Signs: Last Vital Signs Temp 99.2 F 04/18/25 20:00 Pulse 86 04/18/25 20:00 Resp 18 04/18/25 20:00 BP 142/96 H 04/18/25 20:00 Pulse Ox 98 04/18/25 20:00 O2 Del Method Room Air 04/18/25 20:00 BMI result Body Mass Index 35.9 CONST: Alert and oriented, in NAD. Well nourished HEENT: Normocephalic, atraumatic, MMM, Eyes clear, Neck supple RESP: Lungs clear, RRR even and regular HEART:,RRR, S1, S2. No murmur, no edema GI:Abdomen Soft NT, ND. + BS times four. Obese abdomen. :Deferred SKIN: Warm dry and intact, no visible lesions or rashes. NEURO:CN II-XII Intact bilaterally, Sensation intact. Speech clear PSYCH: Normal affect. Weepy at times. Results Labs 04/15/25 18:48 04/19/25 08:35 Assessment and Plan (1) HTN (hypertension): Status: Acute Plan 54-year-old with past medical history of major depressive disorder with psychosis, PTSD, depression, bipolar disorder, stage 3 chronic kidney disease, anxiety, hep C, suicidal ideation, undiagnosed sleep apnea, hypertension and hypertriglyceridemia admitted to inpatient take after he presented to the ED with suicidal ideation. Patient was asked to leave out of his [employer] program for threatening staff. PTSD/depression/suicidal ideation Treatment per psychiatric team. Undiagnosed sleep apnea Patient has a follow up appointment for sleep study outpatient Hypertension/hyperlipidemia Continue Norvasc and fenofibrate Blood pressure stable Stage 3 chronic kidney disease Baseline creatinine 1.6-1.8. Stable, avoid nephrotoxins. Thank you for allowing me to participate in the care of this patient. Will follow as needed, please notify medical provider with any changes in condition or concerns.
[2025-04-19 08:59] VITALS: BP 132/83; PULSE 98; RESP 14; TEMP 36.9; O2SAT 98
[2025-04-19 09:15] LABS: Hemoglobin A1C 108.4363 umol/L; Total Hemoglobin (HGBA1C) 3470.7907 umol/L
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
[2025-04-19 09:25] LABS: Alanine Aminotransferase 16 U/L (0-40); Albumin Level 4.9 g/dL (3.5-5.0); Alkaline Phosphatase 70 U/L (39-117); Anion Gap 12 (12-20); Aspartate Amino Transferase 22 U/L (5-37); Blood Urea Nitrogen 24 mg/dL (9-16); Calcium 10.0 mg/dL (8.4-10.2); Carbon Dioxide 27 mmol/L (22-29); Chloride 106 mmol/L (96-108); Cholesterol 147 mg/dL (<200); Creatinine Clr Calc Pharmacy 44.2; Estimated Glomerular Filt Rate 40; HDL Cholesterol 53 mg/dL (>40); Potassium 3.9 mmol/L (3.3-5.1); Sodium 141 mmol/L (135-145); Total Protein 8.1 g/dL (6.5-8.0); Triglycerides 66 mg/dL (<150)
[2025-04-19 09:41] LABS: Free T4 (Free Thyroxine) 0.96 ng/dL (0.71-1.85); Thyroid Stimulating Hormone 6.84 uIU/mL (0.32-4.0)
[2025-04-19 21:00] VITALS: BP 127/69; PULSE 73; RESP 18; TEMP 37.2; O2SAT 98
[2025-04-20 08:00] VITALS: BP 130/75; PULSE 75; RESP 20; TEMP 36.7; O2SAT 98
--- NOTE | 2025-04-20 13:06 | HO.PSYCHPN ---
Subjective Subjective Date of Service: 04/20/25 Reason For Visit: SI, worsening depression Subjective Notes: Conditional Voluntary Interim History: sign language interpreter present. Patient reports feeling regular today; pt stated, the therapies are helping me with my depression and anxiety . denies SI/HI/VH/AH. Focused on where he will go after discharge. Pt requesting a six month program somewhere to work on myself ; social service technician educated pt she is not aware of such program and can work with his outpatient team. Pt states concerns of going to homeless long term and being around people who use drugs and steal . Patient encouraged to contact friends and family to determine if he is able to stay with them for a period of time. Labs ordered for today. Continue current tx plan. Medication Compliance: Yes Side effects from medications: No Attending Groups: Intermittent Mental Status Exam Mental Status Exam Narrative: Pt is alert and oriented; behavior is cooperative and calm; dressed in casual attire; mood is described as anxious; eye contact appropriate; Speech is normal rate, volume and not pressured; thought process is organized; Thought content is on tx; denies SI/HI/VH/AH. Diagnostics Vital Signs (24Hr): Vital Signs - 24 hr 04/19/25 21:00 04/20/25 08:00 Temperature 99.0 F 98.1 F Pulse Rate 73 75 Respiratory Rate 18 20 Blood Pressure 127/69 130/75 Pulse Oximetry 98 98 Oxygen Delivery Method Room Air Room Air BMI result Body Mass Index 35.9 Labs 04/15/25 18:48 04/19/25 08:35 Labs: Laboratory Results - last 48 hr 04/19/25 08:35 Sodium 141 Potassium 3.9 Chloride 106 Carbon Dioxide 27 Anion Gap 12 BUN 24 H Creatinine 1.78 H Estim Creat Clear Calc 44.2 Estimated GFR 40 Random Glucose 100 Estimat Average Glucose 97 Hemoglobin A1c % 5.0 Calcium 10.0 Total Bilirubin 0.4 AST 22 ALT 16 Alkaline Phosphatase 70 Total Protein 8.1 H Albumin 4.9 Triglycerides 66 Cholesterol 147 LDL Cholesterol, Calc 81 HDL Cholesterol 53 TSH 6.84 H Free T4 0.96 Medications Medications Current Medications Acetaminophen (Acetaminophen 325 Mg Tablet) 650 mg PO Q6H PRN PRN Reason: Headache/Pain, Scale 1-10 Al Hydroxide/Mg Hydroxide (Magnesium Hydrox/Alum Hydrox 30 Ml Oral.Susp) 30 ml PO Q6H PRN PRN Reason: Heartburn/Nausea Amlodipine Besylate (Amlodipine Besylate 10 Mg Tablet) 10 mg PO DAILY [facility]; Protocol Last Admin: 04/20/25 08:16 Dose: 10 mg Clonazepam (Clonazepam 1 Mg Tablet) 2 mg PO BID [facility] Last Admin: 04/20/25 08:16 Dose: 2 mg Doxepin HCl (Doxepin Hcl 25 Mg Capsule) 50 mg PO BEDTIME [facility] Last Admin: 04/19/25 21:29 Dose: 50 mg Fenofibrate (Fenofibrate,Micronized 134 Mg Capsule) 134 mg PO DAILY [facility] Last Admin: 04/20/25 08:16 Dose: 134 mg Hydrocortisone (Hydrocortisone 1 % Cream 28.35 Gm Tube) 1 appl TOPICAL BID PRN; Protocol PRN Reason: Itching Last Admin: 04/18/25 09:39 Dose: 1 appl Hydroxyzine HCl (Hydroxyzine Hcl 25 Mg Tablet) 25 mg PO Q6H PRN PRN Reason: mild anxiety [place] Carbonate ([place] Carbonate 300 Mg Capsule) 300 mg PO DAILY@1200 [facility] Last Admin: 04/20/25 11:46 Dose: 300 mg [place] Carbonate ([place] Carbonate 300 Mg Capsule) 600 mg PO BEDTIME [facility] Last Admin: 04/19/25 21:30 Dose: 600 mg Lurasidone HCl (Lurasidone Hcl 20 Mg Tablet) 60 mg PO BEDTIME [facility] Last Admin: 04/19/25 21:29 Dose: 60 mg Magnesium Hydroxide (Milk Of Magnesia 30 Ml Oral.Susp) 30 ml PO DAILY PRN PRN Reason: Constipation Melatonin (Melatonin 3 Mg Tablet) 6 mg PO BEDTIME [facility] Last Admin: 04/19/25 21:27 Dose: 6 mg Naproxen (Naproxen 500 Mg Tablet) 500 mg PO BID [facility] Last Admin: 04/20/25 08:17 Dose: 500 mg Nicotine (Nicotine 21 Mg Patch.Td24) 21 mg TRANSDERMA DAILY PRN PRN Reason: nicotine craving Nicotine Polacrilex (Nicotine Polacrilex 2 Mg Gum) 2 mg BUCCAL Q2H PRN PRN Reason: Nicotine Cravings Olanzapine (Olanzapine 5 Mg Tablet) 5 mg PO BID PRN PRN Reason: agitation Sertraline HCl (Sertraline Hcl 50 Mg Tablet) 50 mg PO DAILY [facility] Last Admin: 04/20/25 08:16 Dose: 50 mg Trazodone HCl (Trazodone Hcl 50 Mg Tablet) 50 mg PO BEDTIME MRX1 PRN PRN Reason: Insomnia Allergies Allergies Allergy/AdvReac Type Severity Reaction Status Date / Time No Known Allergies (No Known Allergy Unverified 04/15/25 17:59 Allergies*) Assessment & Plan Assessment & Plan (1) Severe recurrent major depressive disorder with psychosis: Status: Acute Code(s): F33.3 - Major depressive disorder, recurrent, severe with psychotic symptoms (2) PTSD (post-traumatic stress disorder): Status: Acute Code(s): F43.10 - Post-traumatic stress disorder, unspecified Plan Patient is a 54 years old , , , Swedish-speaking male with hx of depression and PTSD presented to [facility] via once from [facility] where he has been admitted to the [facility] programs from April 08 until April 15. Report accumulating such as over the past couple of months contributing to worsening depression symptoms dysregulation, and homelessness. He reported that he rushed into a that he became very unhappy. Was appropriately 3 months ago. Since then he has lost his job, vehicle, and housing. He does not find admission at [facility] program was helpful. He is very motivated to work on his mental health. Prior to admitted at this program he has been actively suicidal and had obtain a firearm from a friend though he denies any prior attempts. Also reports some delusional believes that his phone was being moved by unseen entity while he was at this program even though he denies hallucinations. Formulation/clinical reasoning: Worsening depression, experience hallucinations-visual hallucinations, poor appetite, and going on complicated dynamic relationship, he also having unstable housing. Was at the program with [facility], increasing suicidal thoughts. Given the above information, patient could be benefit in acute restrictive environment, for medication adjustment, will follow-up with outpatient for for aftercare. Possible refer patient back to going to treatment program Plan: Patient on 15 minute checks for safety. Admitted to M3. CV. Work with treatment team to do collateral and FLU appointment for aftercare Hospital course: 04/19/25: Continue with home medications. Increase Latuda from 40 mg to 60 mg daily at bedtime. Given with full depression/psychosis. Continue with Klonopin 2 mg b.i.d. as home medication. We will check lithium level the next day on 04/18. Currently on total of 900 mg in divided dose. 04/20: sign language interpreter present. Patient reports feeling regular today; pt stated, the therapies are helping me with my depression and anxiety . denies SI/HI/VH/AH. Focused on where he will go after discharge. Pt requesting a six month program somewhere to work on myself ; social service technician educated pt she is not aware of such program and can work with his outpatient team. Pt states concerns of going to homeless long term and being around people who use drugs and steal . Patient encouraged to contact friends and family to determine if he is able to stay with them for a period of time. Labs ordered for today. Continue current tx plan. Patient educated on: diagnosis, medication risk/benefits and therapeutic strategies Reason for continued inpatient stay Substantial Risk for: med/psych decompensation Time Spent With Patient Time: Total time managing care of this patient today _20___ minutes.
[2025-04-20 17:08] LABS: Lithium 1.13 mmol/L (0.60-1.20)
[2025-04-20 17:14] LABS: Anion Gap 16 (12-20); Blood Urea Nitrogen 27 mg/dL (9-16); Carbon Dioxide 29 mmol/L (22-29); Chloride 103 mmol/L (96-108); Creatinine Clr Calc Pharmacy 43.2; Estimated Glomerular Filt Rate 39; Potassium 3.8 mmol/L (3.3-5.1); Sodium 144 mmol/L (135-145)
[2025-04-20 18:12] LABS: Free T4 (Free Thyroxine) 0.95 ng/dL (0.71-1.85)
[2025-04-20 19:55] VITALS: BP 134/69; PULSE 82; RESP 20; TEMP 36.9; O2SAT 97
[2025-04-21 07:00] VITALS: BMI 36.4
[2025-04-21 07:45] VITALS: BP 131/85; PULSE 74; RESP 16; TEMP 37; O2SAT 98
--- NOTE | 2025-04-21 08:42 | HO.PSYCHPN ---
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 Patient reports feeling so-so today; pt reports he is hoping to stay through the weekend to continue to improve his mood and find a place to go after discharge. Pt stated, I'd rather go to the street than go to a group home . Per nursing. slept 8 hours last night. denies SI/HI/VH/AH. Plan to discharge on Friday if continues to improve; pt aware. Continue current tx plan. Medication Compliance: Yes Side effects from medications: No Mental Status Exam Mental Status Exam Narrative: Pt is alert and oriented; behavior is cooperative and calm; dressed in casual attire; mood is described as anxious; eye contact appropriate; Speech is normal rate, volume and not pressured; thought process is organized; Thought content is on tx/discharge; denies SI/HI/VH/AH. Diagnostics Vital Signs (24Hr): Vital Signs - 24 hr 04/20/25 19:55 04/21/25 07:45 Temperature 98.4 F 98.6 F Pulse Rate 82 74 Respiratory Rate 20 16 Blood Pressure 134/69 131/85 Pulse Oximetry 97 98 Oxygen Delivery Method Room Air Room Air BMI result Body Mass Index 36.4 Labs 04/15/25 18:48 04/20/25 16:15 Labs: Laboratory Results - last 48 hr 04/19/25 04/20/25 08:35 16:15 Sodium 141 144 Potassium 3.9 3.8 Chloride 106 103 Carbon Dioxide 27 29 Anion Gap 12 16 BUN 24 H 27 H Creatinine 1.78 H 1.82 H Estim Creat Clear Calc 44.2 43.2 Estimated GFR 40 39 Random Glucose 100 Estimat Average Glucose 97 Hemoglobin A1c % 5.0 Calcium 10.0 Total Bilirubin 0.4 AST 22 ALT 16 Alkaline Phosphatase 70 Total Protein 8.1 H Albumin 4.9 Triglycerides 66 Cholesterol 147 LDL Cholesterol, Calc 81 HDL Cholesterol 53 TSH 6.84 H 6.22 H Free T4 0.96 0.95 [place] 1.13 Medications Medications Current Medications Acetaminophen (Acetaminophen 325 Mg Tablet) 650 mg PO Q6H PRN PRN Reason: Headache/Pain, Scale 1-10 Al Hydroxide/Mg Hydroxide (Magnesium Hydrox/Alum Hydrox 30 Ml Oral.Susp) 30 ml PO Q6H PRN PRN Reason: Heartburn/Nausea Amlodipine Besylate (Amlodipine Besylate 10 Mg Tablet) 10 mg PO DAILY [facility]; Protocol Last Admin: 04/21/25 08:26 Dose: 10 mg Clonazepam (Clonazepam 1 Mg Tablet) 2 mg PO BID [facility] Last Admin: 04/21/25 08:27 Dose: 2 mg Doxepin HCl (Doxepin Hcl 25 Mg Capsule) 50 mg PO BEDTIME [facility] Last Admin: 04/20/25 20:42 Dose: 50 mg Fenofibrate (Fenofibrate,Micronized 134 Mg Capsule) 134 mg PO DAILY [facility] Last Admin: 04/20/25 08:16 Dose: 134 mg Hydrocortisone (Hydrocortisone 1 % Cream 28.35 Gm Tube) 1 appl TOPICAL BID PRN; Protocol PRN Reason: Itching Last Admin: 04/18/25 09:39 Dose: 1 appl Hydroxyzine HCl (Hydroxyzine Hcl 25 Mg Tablet) 25 mg PO Q6H PRN PRN Reason: mild anxiety [place] Carbonate ([place] Carbonate 300 Mg Capsule) 300 mg PO DAILY@1200 [facility] Last Admin: 04/20/25 11:46 Dose: 300 mg [place] Carbonate ([place] Carbonate 300 Mg Capsule) 600 mg PO BEDTIME [facility] Last Admin: 04/20/25 20:42 Dose: 600 mg Lurasidone HCl (Lurasidone Hcl 20 Mg Tablet) 60 mg PO BEDTIME [facility] Last Admin: 04/20/25 20:42 Dose: 60 mg Magnesium Hydroxide (Milk Of Magnesia 30 Ml Oral.Susp) 30 ml PO DAILY PRN PRN Reason: Constipation Melatonin (Melatonin 3 Mg Tablet) 6 mg PO BEDTIME [facility] Last Admin: 04/20/25 20:43 Dose: 6 mg Naproxen (Naproxen 500 Mg Tablet) 500 mg PO BID [facility] Last Admin: 04/21/25 08:26 Dose: 500 mg Nicotine (Nicotine 21 Mg Patch.Td24) 21 mg TRANSDERMA DAILY PRN PRN Reason: nicotine craving Nicotine Polacrilex (Nicotine Polacrilex 2 Mg Gum) 2 mg BUCCAL Q2H PRN PRN Reason: Nicotine Cravings Olanzapine (Olanzapine 5 Mg Tablet) 5 mg PO BID PRN PRN Reason: agitation Sertraline HCl (Sertraline Hcl 50 Mg Tablet) 50 mg PO DAILY [facility] Last Admin: 04/21/25 08:26 Dose: 50 mg Trazodone HCl (Trazodone Hcl 50 Mg Tablet) 50 mg PO BEDTIME [facility] PRN PRN Reason: Insomnia Allergies Allergies Allergy/AdvReac Type Severity Reaction Status Date / Time No Known Allergies (No Known Allergy Unverified 04/15/25 17:59 Allergies*) Assessment & Plan Assessment & Plan (1) Severe recurrent major depressive disorder with psychosis: Status: Acute Code(s): F33.3 - Major depressive disorder, recurrent, severe with psychotic symptoms (2) PTSD (post-traumatic stress disorder): Status: Acute Code(s): F43.10 - Post-traumatic stress disorder, unspecified Plan Patient is a 54 years old , , , Georgian-speaking male with hx of depression and PTSD presented to [facility] via once from [facility] where he has been admitted to the [facility] programs from April 08 until April 15. Report accumulating such as over the past couple of months contributing to worsening depression symptoms dysregulation, and homelessness. He reported that he rushed into a that he became very unhappy. Was appropriately 3 months ago. Since then he has lost his job, vehicle, and housing. He does not find admission at [facility] program was helpful. He is very motivated to work on his mental health. Prior to admitted at this program he has been actively suicidal and had obtain a firearm from a friend though he denies any prior attempts. Also reports some delusional believes that his phone was being moved by unseen entity while he was at this program even though he denies hallucinations. Formulation/clinical reasoning: Worsening depression, experience hallucinations-visual hallucinations, poor appetite, and going on complicated dynamic relationship, he also having unstable housing. Was at the program with [facility], increasing suicidal thoughts. Given the above information, patient could be benefit in acute restrictive environment, for medication adjustment, will follow-up with outpatient for for aftercare. Possible refer patient back to going to treatment program Plan: Patient on 15 minute checks for safety. Admitted to M3. CV. Work with treatment team to do collateral and FLU appointment for aftercare Hospital course: 04/19/25: Continue with home medications. Increase Latuda from 40 mg to 60 mg daily at bedtime. Given with full depression/psychosis. Continue with Klonopin 2 mg b.i.d. as home medication. We will check lithium level the next day on 04/18. Currently on total of 900 mg in divided dose. 04/20: director of head start present. Patient reports feeling regular today; pt stated, the therapies are helping me with my depression and anxiety . denies SI/HI/VH/AH. Focused on where he will go after discharge. Pt requesting a six month program somewhere to work on myself ; delinquency prevention social worker educated pt she is not aware of such program and can work with his outpatient team. Pt states concerns of going to homeless group home and being around people who use drugs and steal . Patient encouraged to contact friends and family to determine if he is able to stay with them for a period of time. Labs ordered for today. Continue current tx plan. 04/21: director of head start present. Patient reports feeling so-so today; pt reports he is hoping to stay through the weekend to continue to improve his mood and find a place to go after discharge. Pt stated, I'd rather go to the street than go to a group home . Per nursing. slept 8 hours last night. denies SI/HI/VH/AH. Plan to discharge on Friday if continues to improve; pt aware. Continue current tx plan. Patient educated on: diagnosis, medication risk/benefits and therapeutic strategies Reason for continued inpatient stay Substantial Risk for: med/psych decompensation Time Spent With Patient Time: Total time managing care of this patient today _20___ minutes.
[2025-04-21] MEDS: Hydrocortisone 1 % Cream 28.35 GM TUBE 1 APPL TOPICAL (11:13)
[2025-04-21 20:00] VITALS: RESP 18
[2025-04-22 07:46] VITALS: BP 156/87; PULSE 88; RESP 18; TEMP 36.8; O2SAT 99
--- NOTE | 2025-04-22 11:35 | HO.PSYCHPN ---
Subjective Subjective Date of Service: 04/22/25 Reason For Visit: SI, worsening depression Subjective Notes: Conditional Voluntary Interim History: job coach present. Patient reports feeling better ; pt stated, I feel like the medications are helping. I'm still anxious but not as bad . denies SI/HI/VH/AH. Plan to discharge on Friday if continues to improve; pt aware. pt stated, I'm going to make some calls over the weekend to see if I can find somewhere to go . Continue current tx plan. Medication Compliance: Yes Side effects from medications: No Attending Groups: Intermittent Mental Status Exam Mental Status Exam Narrative: Pt is alert and oriented; behavior is cooperative and calm; dressed in casual attire; mood is described as better ; eye contact appropriate; Speech is normal rate, volume and not pressured; thought process is organized; Thought content is on discharge; denies SI/HI/VH/AH. Diagnostics Vital Signs (24Hr): Vital Signs - 24 hr 04/21/25 20:00 04/22/25 07:46 Temperature 98.3 F Pulse Rate 88 Respiratory Rate 18 18 Blood Pressure 156/87 H Pulse Oximetry 99 Oxygen Delivery Method Room Air BMI result Body Mass Index 36.4 Labs 04/15/25 18:48 04/20/25 16:15 Labs: Laboratory Results - last 48 hr 04/20/25 16:15 Sodium 144 Potassium 3.8 Chloride 103 Carbon Dioxide 29 Anion Gap 16 BUN 27 H Creatinine 1.82 H Estim Creat Clear Calc 43.2 Estimated GFR 39 TSH 6.22 H Free T4 0.95 [place] 1.13 Medications Medications Current Medications Acetaminophen (Acetaminophen 325 Mg Tablet) 650 mg PO Q6H PRN PRN Reason: Headache/Pain, Scale 1-10 Al Hydroxide/Mg Hydroxide (Magnesium Hydrox/Alum Hydrox 30 Ml Oral.Susp) 30 ml PO Q6H PRN PRN Reason: Heartburn/Nausea Amlodipine Besylate (Amlodipine Besylate 10 Mg Tablet) 10 mg PO DAILY [facility]; Protocol Last Admin: 04/22/25 08:02 Dose: 10 mg Clonazepam (Clonazepam 1 Mg Tablet) 2 mg PO BID [facility] Last Admin: 04/22/25 09:17 Dose: 2 mg Doxepin HCl (Doxepin Hcl 25 Mg Capsule) 50 mg PO BEDTIME [facility] Last Admin: 04/21/25 21:09 Dose: 50 mg Fenofibrate (Fenofibrate,Micronized 134 Mg Capsule) 134 mg PO DAILY [facility] Last Admin: 04/22/25 10:04 Dose: 134 mg Hydrocortisone (Hydrocortisone 1 % Cream 28.35 Gm Tube) 1 appl TOPICAL BID PRN; Protocol PRN Reason: Itching Last Admin: 04/21/25 11:13 Dose: 1 appl Hydroxyzine HCl (Hydroxyzine Hcl 25 Mg Tablet) 25 mg PO Q6H PRN PRN Reason: mild anxiety [place] Carbonate ([place] Carbonate 300 Mg Capsule) 300 mg PO DAILY@1200 [facility] Last Admin: 04/21/25 15:14 Dose: 300 mg [place] Carbonate ([place] Carbonate 300 Mg Capsule) 600 mg PO BEDTIME [facility] Last Admin: 04/21/25 21:09 Dose: 600 mg Lurasidone HCl (Lurasidone Hcl 20 Mg Tablet) 60 mg PO BEDTIME [facility] Last Admin: 04/21/25 21:07 Dose: 60 mg Magnesium Hydroxide (Milk Of Magnesia 30 Ml Oral.Susp) 30 ml PO DAILY PRN PRN Reason: Constipation Melatonin (Melatonin 3 Mg Tablet) 6 mg PO BEDTIME [facility] Last Admin: 04/21/25 21:10 Dose: 6 mg Naproxen (Naproxen 500 Mg Tablet) 500 mg PO BID [facility] Last Admin: 04/22/25 08:02 Dose: 500 mg Nicotine (Nicotine 21 Mg Patch.Td24) 21 mg TRANSDERMA DAILY PRN PRN Reason: nicotine craving Nicotine Polacrilex (Nicotine Polacrilex 2 Mg Gum) 2 mg BUCCAL Q2H PRN PRN Reason: Nicotine Cravings Olanzapine (Olanzapine 5 Mg Tablet) 5 mg PO BID PRN PRN Reason: agitation Sertraline HCl (Sertraline Hcl 50 Mg Tablet) 50 mg PO DAILY [facility] Last Admin: 04/22/25 08:02 Dose: 50 mg Trazodone HCl (Trazodone Hcl 50 Mg Tablet) 50 mg PO BEDTIME MRX1 PRN PRN Reason: Insomnia Allergies Allergies Allergy/AdvReac Type Severity Reaction Status Date / Time No Known Allergies (No Known Allergy Unverified 04/15/25 17:59 Allergies*) Assessment & Plan Assessment & Plan (1) Severe recurrent major depressive disorder with psychosis: Status: Acute Code(s): F33.3 - Major depressive disorder, recurrent, severe with psychotic symptoms (2) PTSD (post-traumatic stress disorder): Status: Acute Code(s): F43.10 - Post-traumatic stress disorder, unspecified Plan Patient is a 54 years old , , , Chadian-speaking male with hx of depression and PTSD presented to [facility] via once from [facility] where he has been admitted to the [facility] programs from April 08 until April 15. Report accumulating such as over the past couple of months contributing to worsening depression symptoms dysregulation, and homelessness. He reported that he rushed into a that he became very unhappy. Was appropriately 3 months ago. Since then he has lost his job, vehicle, and housing. He does not find admission at [facility] program was helpful. He is very motivated to work on his mental health. Prior to admitted at this program he has been actively suicidal and had obtain a firearm from a friend though he denies any prior attempts. Also reports some delusional believes that his phone was being moved by unseen entity while he was at this program even though he denies hallucinations. Formulation/clinical reasoning: Worsening depression, experience hallucinations-visual hallucinations, poor appetite, and going on complicated dynamic relationship, he also having unstable housing. Was at the program with [facility], increasing suicidal thoughts. Given the above information, patient could be benefit in acute restrictive environment, for medication adjustment, will follow-up with outpatient for for aftercare. Possible refer patient back to going to treatment program Plan: Patient on 15 minute checks for safety. Admitted to M3. CV. Work with treatment team to do collateral and FLU appointment for aftercare Hospital course: 04/19/25: Continue with home medications. Increase Latuda from 40 mg to 60 mg daily at bedtime. Given with full depression/psychosis. Continue with Klonopin 2 mg b.i.d. as home medication. We will check lithium level the next day on 04/18. Currently on total of 900 mg in divided dose. 04/20: job coach present. Patient reports feeling regular today; pt stated, the therapies are helping me with my depression and anxiety . denies SI/HI/VH/AH. Focused on where he will go after discharge. Pt requesting a six month program somewhere to work on myself ; social human services assistants educated pt she is not aware of such program and can work with his outpatient team. Pt states concerns of going to homeless penitentiary and being around people who use drugs and steal . Patient encouraged to contact friends and family to determine if he is able to stay with them for a period of time. Labs ordered for today. Continue current tx plan. 04/21: job coach present. Patient reports feeling so-so today; pt reports he is hoping to stay through the weekend to continue to improve his mood and find a place to go after discharge. Pt stated, I'd rather go to the street than go to a penitentiary . Per nursing. slept 8 hours last night. denies SI/HI/VH/AH. Plan to discharge on Friday if continues to improve; pt aware. Continue current tx plan. 04/22: job coach present. Patient reports feeling better ; pt stated, I feel like the medications are helping. I'm still anxious but not as bad . denies SI/HI/VH/AH. Plan to discharge on Friday if continues to improve; pt aware. pt stated, I'm going to make some calls over the weekend to see if I can find somewhere to go . Continue current tx plan. Patient educated on: diagnosis, medication risk/benefits and therapeutic strategies Reason for continued inpatient stay Substantial Risk for: med/psych decompensation Time Spent With Patient Time: Total time managing care of this patient today _20___ minutes.
[2025-04-22 20:00] VITALS: BP 131/67; PULSE 86; RESP 16; TEMP 37.6; O2SAT 95
[2025-04-22] MEDS: Hydrocortisone 1 % Cream 28.35 GM TUBE 1 APPL TOPICAL (21:06)
[2025-04-23 07:30] VITALS: BP 159/82; PULSE 65; RESP 18; TEMP 37; O2SAT 96
[2025-04-23 08:37] VITALS: BP 159/82
--- NOTE | 2025-04-23 10:13 | P.PNPSI_ITS ---
Subjective Subjective Date of Service: 04/23/25 Reason For Visit: SI, worsening depression Interim History: Patient seen. Overall improved. Seen in his room. Denies concerns. Slept. Feels medications are helpful. Mild irritability noted. Denies SI/HI/AVH. Review of Systems Review of Systems Denies any shortness of breath, chest pain, dizziness, lightheadedness, abdominal pain or discomfort, nausea vomiting or diarrhea Yes all other systems are reviewed and are negative Constitutional: Denies headache(s) Denies headache(s) Cardiovascular: Denies chest pain at rest Respiratory: Denies cough Denies headache(s) Psychiatric: Reports anxiety and Reports depression Mental Status Exam Mental Status Exam Narrative: Pt is alert and oriented; behavior is cooperative and calm; dressed in casual attire; mood is described as better ; eye contact appropriate; Speech is normal rate, volume and not pressured; thought process is organized; Thought content is on discharge; denies SI/HI/VH/AH. Diagnostics Vital Signs (24Hr): Vital Signs - 24 hr 04/22/25 20:00 04/23/25 07:30 04/23/25 08:37 Temperature 99.7 F 98.6 F Pulse Rate 86 65 Respiratory Rate 16 18 Blood Pressure 131/67 159/82 H 159/82 H Pulse Oximetry 95 96 Oxygen Delivery Method Room Air Room Air BMI result Body Mass Index 36.4 Labs 04/15/25 18:48 04/20/25 16:15 Medications Medications Current Medications Acetaminophen (Acetaminophen 325 Mg Tablet) 650 mg PO Q6H PRN PRN Reason: Headache/Pain, Scale 1-10 Al Hydroxide/Mg Hydroxide (Magnesium Hydrox/Alum Hydrox 30 Ml Oral.Susp) 30 ml PO Q6H PRN PRN Reason: Heartburn/Nausea Amlodipine Besylate (Amlodipine Besylate 10 Mg Tablet) 10 mg PO DAILY [facility]; Protocol Last Admin: 04/23/25 08:37 Dose: 10 mg Clonazepam (Clonazepam 1 Mg Tablet) 2 mg PO BID [facility] Last Admin: 04/23/25 08:35 Dose: 2 mg Doxepin HCl (Doxepin Hcl 25 Mg Capsule) 50 mg PO BEDTIME [facility] Last Admin: 04/22/25 21:04 Dose: 50 mg Fenofibrate (Fenofibrate,Micronized 134 Mg Capsule) 134 mg PO DAILY [facility] Last Admin: 04/23/25 08:37 Dose: 134 mg Hydrocortisone (Hydrocortisone 1 % Cream 28.35 Gm Tube) 1 appl TOPICAL BID PRN; Protocol PRN Reason: Itching Last Admin: 04/22/25 21:06 Dose: 1 appl Hydroxyzine HCl (Hydroxyzine Hcl 25 Mg Tablet) 25 mg PO Q6H PRN PRN Reason: mild anxiety [place] Carbonate ([place] Carbonate 300 Mg Capsule) 300 mg PO DAILY@1200 [facility] Last Admin: 04/22/25 12:04 Dose: 300 mg [place] Carbonate ([place] Carbonate 300 Mg Capsule) 600 mg PO BEDTIME [facility] Last Admin: 04/22/25 21:04 Dose: 600 mg Lurasidone HCl (Lurasidone Hcl 20 Mg Tablet) 60 mg PO BEDTIME [facility] Last Admin: 04/22/25 21:04 Dose: 60 mg Magnesium Hydroxide (Milk Of Magnesia 30 Ml Oral.Susp) 30 ml PO DAILY PRN PRN Reason: Constipation Melatonin (Melatonin 3 Mg Tablet) 6 mg PO BEDTIME [facility] Last Admin: 04/22/25 21:04 Dose: 6 mg Naproxen (Naproxen 500 Mg Tablet) 500 mg PO BID [facility] Last Admin: 04/23/25 08:35 Dose: 500 mg Nicotine (Nicotine 21 Mg Patch.Td24) 21 mg TRANSDERMA DAILY PRN PRN Reason: nicotine craving Nicotine Polacrilex (Nicotine Polacrilex 2 Mg Gum) 2 mg BUCCAL Q2H PRN PRN Reason: Nicotine Cravings Olanzapine (Olanzapine 5 Mg Tablet) 5 mg PO BID PRN PRN Reason: agitation Sertraline HCl (Sertraline Hcl 50 Mg Tablet) 50 mg PO DAILY [facility] Last Admin: 04/23/25 08:37 Dose: 50 mg Trazodone HCl (Trazodone Hcl 50 Mg Tablet) 50 mg PO BEDTIME MRX1 PRN PRN Reason: Insomnia Allergies Allergies Allergy/AdvReac Type Severity Reaction Status Date / Time No Known Allergies (No Known Allergy Unverified 04/15/25 17:59 Allergies*) Assessment & Plan Assessment & Plan (1) Severe recurrent major depressive disorder with psychosis: Status: Acute Code(s): F33.3 - Major depressive disorder, recurrent, severe with psychotic symptoms (2) PTSD (post-traumatic stress disorder): Status: Acute Code(s): F43.10 - Post-traumatic stress disorder, unspecified Plan Patient is a 54 years old , , , Italian-speaking male with hx of depression and PTSD presented to [facility] via once from [facility]. Report accumulating such as over the past couple of months contributing to worsening depression symptoms dysregulation, and homelessness. He reported that he rushed into a that he became very unhappy. Was appropriately 3 months ago. Since then he has lost his job, vehicle, and housing. He does not find admission at [facility] program was helpful. He is very motivated to work on his mental health. Prior to admitted at this program he has been actively suicidal and had obtain a firearm from a friend though he denies any prior attempts. Also reports some delusional believes that his phone was being moved by unseen entity while he was at this program even though he denies hallucinations. Formulation/clinical reasoning: Worsening depression, experience hallucinations-visual hallucinations, poor appetite, and going on complicated dynamic relationship, he also having unstable housing. Was at the program with [facility], increasing suicidal thoughts. Given the above information, patient could be benefit in acute restrictive environment, for medication adjustment, will follow-up with outpatient for for aftercare. Possible refer patient back to going to treatment program Plan: Patient on 15 minute checks for safety. Admitted to M3. CV. Work with treatment team to do collateral and FLU appointment for aftercare Hospital course: 04/19/25: Continue with home medications. Increase Latuda from 40 mg to 60 mg daily at bedtime. Given with full depression/psychosis. Continue with Klonopin 2 mg b.i.d. as home medication. We will check lithium level the next day on 04/18. Currently on total of 900 mg in divided dose. 04/20: boat canvas maker and installer present. Patient reports feeling regular today; pt stated, the therapies are helping me with my depression and anxiety . denies SI/HI/VH/AH. Focused on where he will go after discharge. Pt requesting a six month program somewhere to work on myself ; social media community manager educated pt she is not aware of such program and can work with his outpatient team. Pt states concerns of going to homeless senior care and being around people who use drugs and steal . Patient encouraged to contact friends and family to determine if he is able to stay with them for a period of time. Labs ordered for today. Continue current tx plan. 04/21: boat canvas maker and installer present. Patient reports feeling so-so today; pt reports he is hoping to stay through the weekend to continue to improve his mood and find a place to go after discharge. Pt stated, I'd rather go to the street than go to a senior care . Per nursing. slept 8 hours last night. denies SI/HI/VH/AH. Plan to discharge on Friday if continues to improve; pt aware. Continue current tx plan. 04/22: boat canvas maker and installer present. Patient reports feeling better ; pt stated, I feel like the medications are helping. I'm still anxious but not as bad . denies SI/HI/VH/AH. Plan to discharge on Friday if continues to improve; pt aware. pt stated, I'm going to make some calls over the weekend to see if I can find somewhere to go . Continue current tx plan. 04/23: Continue current management and treatment plan. Reason for continued inpatient stay Substantial Risk for: harm to self and inability to function Time Spent With Patient Time: Total time managing care of this patient today ____ minutes.
[2025-04-23 20:00] VITALS: BP 126/74; PULSE 80; RESP 16; TEMP 36.9; O2SAT 98
[2025-04-24 07:25] VITALS: BP 135/75; PULSE 73; RESP 14; TEMP 36.9; O2SAT 94
[2025-04-24 09:00] VITALS: BP 135/85
[2025-04-24] MEDS: Hydrocortisone 1 % Cream 28.35 GM TUBE 1 APPL TOPICAL (10:25)
--- NOTE | 2025-04-24 11:18 | HO.PSYCHPN ---
Subjective Subjective Date of Service: 04/24/25 Reason For Visit: SI, worsening depression Interim History: Patient seen with hourly sign language interpreter. Patient is depressed today. Says he feels invalidated and dismissed by staff. He feels people don't care and his needs are not addressed. On top of that he says his lunch wasn't delivered so he feels things are against him. He says the same happens outside. When he told his friend about being in the hospital, his friend responded by asking if he can borrow his motorcycle. Sleep is disrupted. Education given about medications and expected time for effect. He says he has in his belongings the list of medications that have worked for him in the past. Asked him to provide to this television writer or nursing to give to the primary team to compare. Tearful. Helpless and hopeless. I don't want to be here but denies active SI. Denies HI/AVH. Review of Systems Review of Systems Denies any shortness of breath, chest pain, dizziness, lightheadedness, abdominal pain or discomfort, nausea vomiting or diarrhea Yes all other systems are reviewed and are negative Constitutional: Denies headache(s) Denies headache(s) Cardiovascular: Denies chest pain at rest Respiratory: Denies cough Denies headache(s) Psychiatric: Reports anxiety and Reports depression Mental Status Exam Mental Status Exam Narrative: Pt is alert and oriented; behavior is cooperative and calm; dressed in casual attire; mood is described as better ; eye contact appropriate; Speech is normal rate, volume and not pressured; thought process is organized; Thought content is on discharge; denies SI/HI/VH/AH. Diagnostics Vital Signs (24Hr): Vital Signs - 24 hr 04/23/25 20:00 04/24/25 07:25 04/24/25 09:00 Temperature 98.4 F 98.4 F Pulse Rate 80 73 Respiratory Rate 16 14 Blood Pressure 126/74 135/75 135/85 Pulse Oximetry 98 94 Oxygen Delivery Method Room Air Room Air BMI result Body Mass Index 36.4 Labs 04/15/25 18:48 04/20/25 16:15 Medications Medications Current Medications Acetaminophen (Acetaminophen 325 Mg Tablet) 650 mg PO Q6H PRN PRN Reason: Headache/Pain, Scale 1-10 Al Hydroxide/Mg Hydroxide (Magnesium Hydrox/Alum Hydrox 30 Ml Oral.Susp) 30 ml PO Q6H PRN PRN Reason: Heartburn/Nausea Amlodipine Besylate (Amlodipine Besylate 10 Mg Tablet) 10 mg PO DAILY [facility]; Protocol Last Admin: 04/24/25 09:00 Dose: 10 mg Clonazepam (Clonazepam 1 Mg Tablet) 2 mg PO BID [facility] Last Admin: 04/24/25 09:00 Dose: 2 mg Doxepin HCl (Doxepin Hcl 25 Mg Capsule) 50 mg PO BEDTIME JOSEFA Last Admin: 04/23/25 20:51 Dose: 50 mg Fenofibrate (Fenofibrate,Micronized 134 Mg Capsule) 134 mg PO DAILY [facility] Last Admin: 04/24/25 09:00 Dose: 134 mg Hydrocortisone (Hydrocortisone 1 % Cream 28.35 Gm Tube) 1 appl TOPICAL BID PRN; Protocol PRN Reason: Itching Last Admin: 04/24/25 10:25 Dose: 1 appl Hydroxyzine HCl (Hydroxyzine Hcl 25 Mg Tablet) 25 mg PO Q6H PRN PRN Reason: mild anxiety [place] Carbonate ([place] Carbonate 300 Mg Capsule) 300 mg PO DAILY@1200 [facility] Last Admin: 04/23/25 12:21 Dose: 300 mg [place] Carbonate ([place] Carbonate 300 Mg Capsule) 600 mg PO BEDTIME [facility] Last Admin: 04/23/25 20:52 Dose: 600 mg Lurasidone HCl (Lurasidone Hcl 20 Mg Tablet) 60 mg PO BEDTIME [facility] Last Admin: 04/23/25 20:51 Dose: 60 mg Magnesium Hydroxide (Milk Of Magnesia 30 Ml Oral.Susp) 30 ml PO DAILY PRN PRN Reason: Constipation Melatonin (Melatonin 3 Mg Tablet) 6 mg PO BEDTIME [facility] Last Admin: 04/23/25 20:53 Dose: 6 mg Naproxen (Naproxen 500 Mg Tablet) 500 mg PO BID [facility] Last Admin: 04/24/25 08:52 Dose: 500 mg Nicotine (Nicotine 21 Mg Patch.Td24) 21 mg TRANSDERMA DAILY PRN PRN Reason: nicotine craving Nicotine Polacrilex (Nicotine Polacrilex 2 Mg Gum) 2 mg BUCCAL Q2H PRN PRN Reason: Nicotine Cravings Olanzapine (Olanzapine 5 Mg Tablet) 5 mg PO BID PRN PRN Reason: agitation Sertraline HCl (Sertraline Hcl 50 Mg Tablet) 50 mg PO DAILY [facility] Last Admin: 04/24/25 09:00 Dose: 50 mg Trazodone HCl (Trazodone Hcl 50 Mg Tablet) 50 mg PO BEDTIME MRX1 PRN PRN Reason: Insomnia Allergies Allergies Allergy/AdvReac Type Severity Reaction Status Date / Time No Known Allergies (No Known Allergy Unverified 04/15/25 17:59 Allergies*) Assessment & Plan Assessment & Plan (1) Severe recurrent major depressive disorder with psychosis: Status: Acute Code(s): F33.3 - Major depressive disorder, recurrent, severe with psychotic symptoms (2) PTSD (post-traumatic stress disorder): Status: Acute Code(s): F43.10 - Post-traumatic stress disorder, unspecified Plan Patient is a 54 years old , , , Fijian-speaking male with hx of depression and PTSD presented to [facility] via once from [facility] where he has been admitted to the [facility] programs from April 08 until April 15. Report accumulating such as over the past couple of months contributing to worsening depression symptoms dysregulation, and homelessness. He reported that he rushed into a that he became very unhappy. Was appropriately 3 months ago. Since then he has lost his job, vehicle, and housing. He does not find admission at [facility] program was helpful. He is very motivated to work on his mental health. Prior to admitted at this program he has been actively suicidal and had obtain a firearm from a friend though he denies any prior attempts. Also reports some delusional believes that his phone was being moved by unseen entity while he was at this program even though he denies hallucinations. Formulation/clinical reasoning: Worsening depression, experience hallucinations-visual hallucinations, poor appetite, and going on complicated dynamic relationship, he also having unstable housing. Was at the program with [facility], increasing suicidal thoughts. Given the above information, patient could be benefit in acute restrictive environment, for medication adjustment, will follow-up with outpatient for for aftercare. Possible refer patient back to going to treatment program Plan: Patient on 15 minute checks for safety. Admitted to M3. CV. Work with treatment team to do collateral and FLU appointment for aftercare Hospital course: 04/19/25: Continue with home medications. Increase Latuda from 40 mg to 60 mg daily at bedtime. Given with full depression/psychosis. Continue with Klonopin 2 mg b.i.d. as home medication. We will check lithium level the next day on 04/18. Currently on total of 900 mg in divided dose. 04/20: freelance interpreter/translator present. Patient reports feeling regular today; pt stated, the therapies are helping me with my depression and anxiety . denies SI/HI/VH/AH. Focused on where he will go after discharge. Pt requesting a six month program somewhere to work on myself ; social media senior associate educated pt she is not aware of such program and can work with his outpatient team. Pt states concerns of going to homeless penitentiary and being around people who use drugs and steal . Patient encouraged to contact friends and family to determine if he is able to stay with them for a period of time. Labs ordered for today. Continue current tx plan. 04/21: freelance interpreter/translator present. Patient reports feeling so-so today; pt reports he is hoping to stay through the weekend to continue to improve his mood and find a place to go after discharge. Pt stated, I'd rather go to the street than go to a penitentiary . Per nursing. slept 8 hours last night. denies SI/HI/VH/AH. Plan to discharge on Friday if continues to improve; pt aware. Continue current tx plan. 04/22: freelance interpreter/translator present. Patient reports feeling better ; pt stated, I feel like the medications are helping. I'm still anxious but not as bad . denies SI/HI/VH/AH. Plan to discharge on Friday if continues to improve; pt aware. pt stated, I'm going to make some calls over the weekend to see if I can find somewhere to go . Continue current tx plan. 04/23: Continue current management and treatment plan. 04/24: continue current management and treatment plan. Reason for continued inpatient stay Substantial Risk for: harm to self, inability to function and rapid decompensation Time Spent With Patient Time: Total time managing care of this patient today ____ minutes.
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
[2025-04-24] MEDS: diazePAM 10 MG/2 ML CARTRIDGE IM (17:09)
--- NOTE | 2025-04-24 18:06 | HO.BHRESTREX ---
Behavioral Restraint Exam Behavioral Health Restraint Exam Type of Restraint: Physical Hold Medical Concerns for Restraint: No medical concerns, pt w/o acute inj / no noted resp/VS abnormalities If exam took place greater than one hour after restraint please explain:: acute issues being addressed Behavioral Assessment / Plan: No further behavioral concerns, continue current plan.
[2025-04-24 21:50] VITALS: RESP 20
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
[2025-04-25 08:00] VITALS: BP 142/84; PULSE 100; RESP 18; TEMP 36.9; O2SAT 95
[2025-04-25 08:28] VITALS: BP 142/84
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
== END 2025-04-25 10:51 | disposition home or self-care (01) | DRG 751 ==
LOC: HO.ED 04-18 12:15 → HO.PADLT16 04-18 12:24
PROVIDERS: Physician Assistant; Admitting Provider Nurse Practitioner Psychiatric/Mental Health; Emergency Provider Student in an Organized Health Care Education/Training Program; PCP Dentist General Practice; Responsible Provider Registered Nurse; Visit Provider Psychiatry & Neurology Psychiatry
DX: F33.3 Major depressive disorder, recurrent, severe with psychotic symptoms (principal); R45.851 Suicidal ideations; E78.5 Hyperlipidemia, unspecified; I12.9 Hypertensive chronic kidney disease with stage 1 through stage 4 chronic kidney disease, or unspecified chronic kidney disease; N18.30 Chronic kidney disease, stage 3 unspecified; Z78.1 Physical restraint status; F43.10 Post-traumatic stress disorder, unspecified; G47.30 Sleep apnea, unspecified; Z59.02 Unsheltered homelessness; Z79.899 Other long term (current) drug therapy
CPT/HCPCS: 36415; 80051; 80053; 80061; 80143; 80178; 80179; 80307; 81003; 82565; 83036; 84439; 84443; 84520; 85025; 93005; 99285; J1630; J3360; S9485

== ENCOUNTER → 2025-04-18 07:55 | Outpatient (BNV) | payer MEDICAID, SELFPAY | PROVIDERS: Admitting Provider Nurse Practitioner Psychiatric/Mental Health; Emergency Provider Student in an Organized Health Care Education/Training Program; PCP Dentist General Practice; Visit Provider Internal Medicine | DX: I49.9 Cardiac arrhythmia, unspecified (principal) | CPT/HCPCS: 93010 ==

== ENCOUNTER → 2025-04-18 12:02 | Outpatient (BNV) | payer OTHER, SELFPAY | PROVIDERS: Admitting Provider Nurse Practitioner Psychiatric/Mental Health; Emergency Provider Student in an Organized Health Care Education/Training Program; PCP Dentist General Practice; Responsible Provider Registered Nurse; Visit Provider Registered Nurse | DX: F33.3 Major depressive disorder, recurrent, severe with psychotic symptoms (principal); F43.10 Post-traumatic stress disorder, unspecified | CPT/HCPCS: 99231; 99232; 99233; 99499 ==

== ENCOUNTER → 2025-04-18 12:02 | Outpatient (BNV) | payer MEDICAID, SELFPAY | PROVIDERS: Admitting Provider Nurse Practitioner Psychiatric/Mental Health; Emergency Provider Student in an Organized Health Care Education/Training Program; PCP Dentist General Practice; Visit Provider Nurse Practitioner Family | DX: I10 Essential (primary) hypertension (principal) | CPT/HCPCS: 99221 ==

== ENCOUNTER 2025-04-27 19:21 | Emergency (ER) | payer MEDICAID, SELFPAY ==
--- OUTSIDE RECORDS SUMMARY | 2025-04-26 17:21 | XMS_ITS | Encounter Summary ---
Author Organization [facility] Address [address] [place] [address] Care Team Providers Care Milling Operator Name Role Phone Physician, No Pcp Primary Care Provider Unavaila ble Reason for Visit * Reason Comments Suicidal Encounter Details Date Type Department Care Team (Late st Contact Info) Description 04/26/2025 5:21 PM EDT - 04/26/2025 9:29 PM EDT Emergency [facility] Emergency [address] [place] [id number] Jesse Baltazar MD [address] [place] [address] Ezequiel Van MD [address] [place] [address] Suicidal ideation (Primary Dx); Current episode of major depressive disorder without prior episode, unspecified depression episode severity; Anxiety disorder, unspecified type Discharge Disposition: Home or Self Care Social History Tobacco Use Types Packs/Day Years Used Date Smoking Tobacco: Never Alcohol Use Standard Drinks/Week Comments Not Currently 0 (1 standard drink = 0.6 oz pur e alcohol) Sex and Gender Information Value Date Recorded Sex Assigned at Not on file Legal Sex Male 5:01 AM EST Gender Identity Not on file Sexual Orientation Not on file documented as of this encounter Last Filed Vital Signs Vital Sign Reading Time Taken Comments Blood Pressure 117/95 04/26/2025 5:50 PM EDT Pulse 91 04/26/2025 5:50 PM EDT Temperature 37.1 C (98.8 F) 04/26/2025 5:50 PM EDT Respiratory Rate 16 04/26/2025 5:50 PM EDT Oxygen Saturation 97% 04/26/2025 8:16 PM EDT Inhaled Oxygen Concentration - - Weight 90.7 kg (200 lb) 04/26/2025 5:50 PM EDT Height 162.6 cm (5' 4 ) 04/26/2025 5:50 PM EDT Body Mass Index 34.33 04/26/2025 5:50 PM EDT documented in this encounter Functional Status * Are you deaf or do you have serious difficulty hearing? Answer Date of Assessment Author No 02/13/2025 9:45 PM EDT Michael Funes RN * Are you blind or do you have serious difficulty seeing, even when wearing glasses? Answer Date of Assessment Author No 02/13/2025 9:45 PM EDT Michael Funes RN * Do you have serious difficulty walking or climbing stairs? Answer Date of Assessment Author No 02/13/2025 9:45 PM EDT Michael Funes RN * Do you have [...] Michael Funes RN documented in this encounter Discharge Instructions * Discharge Instructions* Ezequiel Van MD - 04/26/2025 8:49 PM EDT Por favor, regrese a urgencias si tiene pensamientos de hacerse da??o a s?? mismo o a otros. Por favor, regrese a urgencias si presenta dolor en el pecho o dificultad para respirar. Please return to the ER should develop thoughts of harming self or others. Please return to the ER should you develop chest pain or difficulty breathing. * Attachments The following attachments cannot be sent through Care Everywhere. * Mental Health Crisis: Getting Help: General Info (Micronesian) documented in this encounter Medications at Time of Discharge amLODIPine (NORVASC) 5 mg tablet Take 2 tablets (10 mg total) by mouth 1 (one) time each day. clonazePAM (KlonoPIN) 2 mg tablet Take 1 tablet (2 mg total) by mouth 2 (two) times a day. doxepin (SINEquan) 50 mg capsule Take 1 capsule (50 mg total) by mouth at bedtime. fenofibrate (TRICOR) 145 mg tablet Take 1 tablet (145 mg total) by mouth 1 (one) time each day. gabapentin (NEURONTIN) 800 mg tablet Take 1 tablet (800 mg total) by mouth 3 (three) times a day. lithium 300 mg capsule Take 1 capsule (300 mg total) by mouth 1 (one) time each day. lithium 600 mg capsule Take 1 capsule (600 mg total) by mouth at bedtime. lurasidone (LATUDA) 40 mg tablet Take 1 tablet (40 mg total) by mouth 1 (one) time each day with breakfast. melatonin 3 mg tablet Take 2 tablets (6 mg total) by mouth at bedtime. meloxicam (MOBIC) 15 mg tablet Take 1 tablet (15 mg total) by mouth 1 (one) time each day. sertraline (ZOLOFT) 100 mg tablet Take 0.5 tablets (50 mg total) by mouth 1 (one) time each day. cloNIDine (CATAPRES) 0.1 mg tablet Take 1 tablet (0.1 mg total) by mouth 1 (one) time each day. diclofenac (VOLTAREN) 1 % topical gel Apply 2 g topically 2 (two) times a day. lurasidone (LATUDA) 60 mg tablet Take 1 tablet (60 mg total) by mouth at bedtime. documented as of this encounter Discharge Disposition Disposition Code Departure Means Destination Comment s Home or Self Prison Pt provided discharge instructions, plan of care, pt verbalizes understanding.stefany booked for pt transport home documented in this encounter Progress Notes * mAaris Pino RN - 04/26/2025 7:30 PM EDT SUICIDE PRECAUTIONS, SECURITY AT WATCH * Maylin Santiago RN - 04/26/2025 5:21 PM EDT Pt to ED by ambulance from [facility] after denying respite care. Pt states SI with no plan - no known allergies. * Jesse Baltazar MD - 04/26/2025 5:18 PM EDT Emergency Medicine Note Patient Name: Terence Anthony Initial Evaluation: 04/26/2025 : 1970 Patient's PCP: No Pcp Physician Emergency Physician: Jesse Baltazar MD History of Present Illness Chief Complaint: Chief Complaint Patient presents with Suicidal HPI: 54 patient has a history of depression, states that he is severely depressed and suicidal. Denies plan. States that he was recently at a facility that was very helpful and things were good. Hewas apparently seen by crisis at another hospital and sent to place that he did not like so refused, Kahdar endorsed SI, and now presents to the ED for reevaluation. Previous History Past Medical History: Diagnosis Date Bipolar 2 disorder ([facility] V24, [facility] V28) per emr DJD (degenerative joint disease) per EMR/ chronic pain left knee Hepatitis C per EMR Hypertension per emr No past surgical history on file. Social History Tobacco Use Smoking status: Never Substance Use Topics Alcohol use: Not Currently Drug use: Yes Types: Cocaine Comment: per tox screen No family history on file. has No Known Allergies. No current facility-administered medications on file prior to encounter. Current Outpatient Medications on File Prior to Encounter Medication Sig Dispense Refill amLODIPine (NORVASC) 5 mg tablet Take 2 tablets (10 mg total) by mouth 1 (one) time each day. clonazePAM (KlonoPIN) 2 mg tablet Take 1 tablet (2 mg total) by mouth 2 (two) times a day. doxepin (SINEquan) 50 mg capsule Take 1 capsule (50 mg total) by mouth at bedtime. fenofibrate (TRICOR) 145 mg tablet Take 1 tablet (145 mg total) by mouth 1 (one) time each day. gabapentin (NEURONTIN) 800 mg tablet Take 1 tablet (800 mg total) by mouth 3 (three) times a day. lithium 300 mg capsule Take 1 capsule (300 mg total) by mouth 1 (one) time each day. lithium 600 mg capsule Take 1 capsule (600 mg total) by mouth at bedtime. lurasidone (LATUDA) 40 mg tablet Take 1 tablet (40 mg total) by mouth 1 (one) time each day with breakfast. melatonin 3 mg tablet Take 2 tablets (6 mg total) by mouth at bedtime. meloxicam (MOBIC) 15 mg tablet Take 1 tablet (15 mg total) by mouth 1 (one) time each day. sertraline (ZOLOFT) 100 mg tablet Take 0.5 tablets (50 mg total) by mouth 1 (one) time each day. cloNIDine (CATAPRES) 0.1 mg tablet Take 1 tablet (0.1 mg total) by mouth 1 (one) time each day. diclofenac (VOLTAREN) 1 % topical gel Apply 2 g topically 2 (two) times a day. (Patient not taking:Reported on 04/26/2025) lurasidone (LATUDA) 60 mg tablet Take 1 tablet (60 mg total) by mouth at bedtime. (Patient not taking: Reported on 04/26/2025) Physical Exam ED Triage Vitals Temp Pulse Resp BP -- -- -- -- SpO2 Temp src Heart Rate Source Patient Position -- -- -- -- BP Location FiO2 (%) -- -- GENERAL: Well-Appearing SKIN: Warm, dry, normal for ethnicity. No rashes. HEENT: Normal sclera, noninjected nonicteric CHEST: Normal peripheral perfusion, no edema PULMONARY: Normal respiratory effort ABDOMINAL: Nondistended NEURO: Alert and oriented, moving all extremities equally PSYCHIATRIC: Flat affect, fluid speech, poor eye contact. Endorsing SI. Denies HI. Denies visual auditory hallucinations. No RIS. Results Labs Reviewed CBC AND DIFFERENTIAL Narrative: The following orders were created for panel order CBC and differential. Procedure Abnormality Status --------- ------ CBC auto differential[[id number]] Please view results for these tests on the individual orders. COMPREHENSIVE METABOLIC PANEL ETHANOL ACETAMINOPHEN LEVEL SALICYLATE LEVEL DRUG ABUSE SCREEN 8A PANEL, URINE BUPRENORPHINE SCREEN, URINE PHENCYCLIDINE, URINE METHADONE SCREEN, URINE CBC WITH AUTO DIFFERENTIAL Abnormal Labs Reviewed - No abnormal labs to display No orders to display I have discussed the incidental/abnormal imaging and/or lab abnormalities with the patient and haveinstructed them the need for further evaluation and workup with their primary care doctor. Medical Decision Making Differential Diagnosis: Suicidal ideation MDM: 54-year-old male presents for suicidal ideation. Medically cleared and referred to crisis. Social determinants of health affecting disposition: Patient's language barrier limit patient's diagnosis and treatment. Clinical Impression: Suicidal ideation SEPSIS Exemption: [ x ] It is unlikely this patient has sepsis at the time of my evaluation. Medications melatonin tablet 6 mg (has no administration in time range) aluminum-magnesium hydroxide-simethicone (MAALOX) 200-200-20 mg/5 mL suspension 30 mL (has no administration in time range) ondansetron ODT (ZOFRAN-ODT) disintegrating tablet 4 mg (has no administration in time range) acetaminophen (TYLENOL) tablet 1,000 mg (has no administration in time range) ED Course as of 04/26/251755Apr 26, [id number] I, Dr. Brice Baltazar, signed this patient out pending further workup and evaluation. History and physical reviewed with oncoming team. At this point the pending portions of the work-up are: Follow-up crisis evaluation and disposition [MG] ED Course User Index [MG] Jesse Baltazar MD Clinical Impressions as of 04/26/251755 Suicidal ideation Procedures Procedures Diagnosis 1. Suicidal ideation Disposition Send to Specialty Department ED Prescriptions None Jesse Baltazar MD 04/26/251746 Jesse Baltazar MD 04/26/251755 Jesse Baltazar MD 04/26/251801 * Ezequiel Van MD - 04/26/2025 5:18 PM EDT ED Course as of 04/26/252254Apr 26, [id number] I, Dr. Brice Baltazar, signed this patient out pending further workup and evaluation. History and physical reviewed with oncoming team. At this point the pending portions of the work-up are: Follow-up crisis evaluation and disposition [MG] 1802 Received in signout pending crisis evaluation. [KD] 2045 Per crisis team the patient is cleared. At this time proceeding with discharge. [KD] ED Course User Index [KD] Ezequiel Van MD [MG] Jesse Baltazar MD Clinical Impressions as of 04/26/252254 Suicidal ideation Current episode of major depressive disorder without prior episode, unspecified depression episode severity Anxiety disorder, unspecified type Disposition: Discharge Condition: Stable Ezequiel Van MD 04/26/252254 documented in this encounter Consult Notes * Kari Sauceda LCSW - 04/26/2025 8:47 PM EDTAssociated Order(s): IP CONSULT TO [employer] Images from the original note were not included. Behavioral Health Services - Crisis Assessment Important times Time of arrival: 04/26/25 1711 Time of referral: 04/26/25 173 Time of readiness: 04/26/25 1900 Time assessment started: 04/26/251927 Time of disposition: 04/26/252027 Location: [facility] ER Consulted case with: Jocelyn Jordan LCSW Insurance information: Insurance: Be Healthy PRT Verified by: COLT Negrete Reason for Consultation / Presenting Problem: Terence Anthony is being seen today for a consultive service at the request of Ezequiel Van MD to assess risk and identify appropriate level of care. Patient is a 54-year-old male being assessed by Behavioral Health due to vague suicidal statement with out a plan. Patient is Micronesian speaking and was assessed with the aid of a patient certified marine mechanic. Patient reports that yesterday he felt depressed and anxious because he is not living up to his full potential. Patient reports that he was not clinically diagnose with depression and he is not currently on any medication for depression. Patient reports that he has a 7 year old daughter who live in [place]. Patient reports that he would like to find a program that is right for him so that he could better his life and be able to help others. Based on a co-response report from [facility], the patient is being assisted with [facility] placement on 04/27. Patient is currently being seen by a therapist in the community. Patient has assess to resources in the community. At the time of assessment, the patient denied SI/HI/AH. Patient reports that the sometimes the devon not steady and the floor looks like it is moving. Patient reports that he feels safe leaving andwill connect with [facility]. History of Present Illness: Terence is a 54 y.o. male with Chief Complaint Patient presents with Suicidal Social/Educational History: Guardian - if Yes, provide contact information: n/a [place] Status: n/a State Agency Involvement: [facility] [place]'s Order: n/a Marital Status: Alternative Placement Details: none reported Living Situation for patient: Homeless Currently in the process of getting placement with [facility] through [facility]. Household Members/Age: n/a Friendships/Family/Social Peer Support/Relationships: none reported Highest level of education: Patient reports that he graduated high school and completed 1 year of college Comments (Include Learning Needs): none reported Occupation: none reported. Patient supports himself financially via [facility] Employment/Extracurricular Activities/Hobbies: Unemployed Limitations of Daily Activities: none reported Strengths/Supports: Patient can advocate for his needs and has assess to community resources. Collaterals, contact information, and engagement level: Therapist: Yolande Duncan: Courtney Ochoa Psychiatrist: none reported PCP: none reported Family: none reported Other: none reported Mental Status Speech: WNL Eye Contact: WNL Motor Activity: WNL Mood: WNL Affect: Appropriate Sleep: Fair Appetite: WNL Memory: WNL Attention / Concentration: WNL Behavior: Cooperative and Restless Appearance: Hallucinations: None Delusions: None Thought Content: WNL SI: Denied HI: Denied Thought Process: WNL Orientation Impairment: None Insight: WNL Judgment: WNL Impulse Control: WNL Substance Use History (Including family history): Patient has a history of Cocaine and Cannabinoid use. Utox Results: Positive Benzodiazepine Substance Use Treatment History: Patient reports that he was in a treatment program a year about, but he could not remember the nameof the facility. Mental Health Treatment History: Outpatient Mental Health Treatment: Denied Previous or Current Psychological Diagnosis: Denied Prior Psychiatric Hospitalizations/Residential Treatment Facilities: none reported Other Comments Regarding Mental Health Treatment History: none reported Mental Health Concerns in Family: Denied Trauma History: Denied Medications: Scheduled Meds: acetaminophen, 1,000 mg, oral, TID Continuous Infusions: PRN Meds: PRN medications: aluminum-magnesium hydroxide-simethicone, melatonin, ondansetron (ZOFRAN-ODT) disintegrating tablet Risk Assessment: Self-Harm: None Suicidal Behavior: Past and Passive Homicidal Behavior: None Physical Assault: None Physical Aggression: None Property Damage: None Verbal Aggression: Past Family history of suicide: Denied Protective Factors: Patient is connected to [facility] and is receiving help through the agency Patient has a therapist Patient has possible [facility] placement for 04/27 Patient is help-seeking Risk Factors: Patient endorse SI for secondary gain Patient is depressed Patient has limited family ties Patient is unhoused Suicide Risk: Based on patient's history and current presentation, their level of risk for intentional lethal harm is considered Low Safety Plan Completed: no Patient will follow up with [facility] Interventions: Safety assessment, Motivational interviewing, active listening, empathetic listening, brief counseling, psychoeducation, support, safety planning Response to interventions: Patient responded well to the intervention; he was calm, cooperative, and welcomed additional help. DSM-5TR Diagnosis: F32.9 Unspecified Depressive Disorder F41.9 Unspecified Anxiety Disorder Plan: Given the above information, it is in my clinical opinion that the patient does not present as an immediate risk to himself or others and does not meet the criteria for inpatient level of care. Patient would benefit from continuing to work with current outpatient providers. Recommendations were discussed with requesting provider. It was a pleasure to assist Terence Anthony here at [facility]. This report is written and finalized by: Kari Sauceda LCSW Behavioral Health Specialist [facility] (Tel): [phone] / : [phone] documented in this encounter Miscellaneous Notes * ED Bed Hold Note - Adalgisa Velasquez RN - 04/26/2025 5:21 PM EDT Bed: VT-C Expected date: 04/26/25 Expected time: Means of arrival: Comments: AMR: 73M, Micronesian Speaking, SI Post eval homeless denied respite documented in this encounter Plan of Treatment Scheduled Orders Name Type Priority Associated Diagnoses Orde r Schedule ECG 12 lead ECG STAT Once for 1 Oc currences starting 04/26/2025 until 04/26/2025 documented as of this encounter Procedures Procedure Name Priority Date/Time Associated Diagnosis Comments CBC WITH AUTO DIFFERENTIAL STAT 04/26/2025 6:08 PM EDT CBC AND DIFFERENTIAL STAT 04/26/2025 6:08 PM EDT ETHANOL STAT 04/26/2025 6:08 PM EDT ACETAMINOPHEN LEVEL STAT 04/26/2025 6 :08 PM EDT SALICYLATE LEVEL STAT 04/26/2025 6:08 PM EDT COMPREHENSIVE METABOLIC PANEL STAT 04/26/2025 6:08 PM EDT DRUG ABUSE SCREEN 8A PANEL, URINE STAT 04/26/2025 5:50 PM EDT BUPRENORPHINE SCREEN, URINE STAT 04/26/2025 5:50 PM EDT METHADONE SCREEN, URINE STAT 04/26/2025 5:50 PM EDT PHENCYCLIDINE, URINE STAT 04/26/2025 5:50 PM EDT documented in this encounter Results * (ABNORMAL) CBC auto differential (04/26/2025 6:08 PM EDT) [facility] WBC 11.3(H) 4.8 - 10.8 K/mcL LAB HEMETOLOGY METHOD 04/26/2025 6:30 PM EDT [facility] RBC 4.40(L) 4.50 - 5.50 M/mcL LAB HEMETOLOGY METHOD 04/26/2025 6:30 PM EDT [facility] Hemoglobin 12.5(L) 13.5 - 17.5 g/dL LAB HEMETOLOGY METHOD 04/26/2025 6:30 PM EDT [facility] Hematocrit 38.4(L) 42.0 - 54.0 % LAB H[facility]ETOLOGY [facility] MCV 86.7 79.0 - 98.0 FL LAB HEMETOLOGY METHOD 04/[facility]2025 [facility] MCH 28.2 27.0 - 32.0 pcg LAB HEMETOLOGY METHOD 04/26/2025 6:30 PM EDT [facility] MCHC 32.6 32.0 - 37.0 g/dL LAB HEMETOLOGY METHOD 04/26[facility]2025 6[facility] RDW 13.6 11.0 - 15.0 % LAB HEMETOLOGY METHOD 04/26[facility]2025 6[facility] Platelets 292 130 - 400 K/mcL LAB HEMETOLOGY METHOD 04/26/2025 6:30 PM EDT [facility] MPV 11.3(H) 7.0 - 11.0 FL LAB HEMETOLOGY METHOD 04/26[facility]2025 [facility] NRBC 0.0 <1.0 % LAB HEMETOLOGY METHOD 04/26/2025 6:30 PM EDT [facility] NRBC Absolute 0.00 <0.10 K/mcL LAB HEMETOLOGY METHOD 04/26/2025 6:30 PM EDT [facility] Neutrophils Relative 74.1 % LAB HEMETOLOGY METHOD 04/26/2025 6:30 PM EDT [facility] Lymphocytes Relative 16.2 % LAB HEMETOLOGY METHOD 04/26/2025 6:30 PM EDT [facility] Monocytes Relative 6.7 % LAB HEMETOLOGY METHOD 04/26/2025 6:30 PM EDT [facility] Eosinophils Relative 2.0 % LAB HEMETOLOGY METHOD 04/26/2025 6:30 PM EDT [facility] Basophils Relative 0.6 % LAB HEMETOLOGY METHOD [facility] Immature Granulocytes Relative 0.4 % LAB HEMETOLOGY METHOD [facility]/26[facility]2025 6[facility] Neutrophils Absolute 8.34(H) 1.50 - 7.00 K/mcL LAB HEMETOLOGY METHOD 04/26[facility]2025 6[facility] Lymphocytes Absolute 1.82 1.00 - 5.00 K/mcL LAB HEMETOLOGY METHOD 04/26/2025 6[facility] Monocytes Absolute 0.75 0.20 - 1.00 K/mcL LAB HEMETOLOGY METHOD 04/26/2025 6:30 PM EDT [facility] Eosinophils Absolute 0.22 0.00 - 0.50 K/mcL LAB HEMETOLOGY METHOD 04/26/2025 6:30 PM EDT [facility] Basophils Absolute 0.07 0.00 - 0.20 K/mcL LAB HEMETOLOGY METHOD 04/26/2025 6:30 PM [facility] Immature Granulocytes Absolute 0.05(H) 0.00 - 0.03 K/mcL LAB HEMETOLOGY METHOD 04/26/2025 6:30 PM EDT [facility] Blood Venous blood specimen / Unknown Venipuncture / Unknown 04/26/2025 6:08 PM EDT 04/26/2025 6:22 PM EDT Jesse Baltazar MD LAB BLOOD ORDERABLES Final Resu lt Performing Organization Address City/[facility]/ZIP Co de Phone Number [facility] [address] [place] [address], [place] [phone] * (ABNORMAL) Salicylate level (04/26/2025 6:08 PM EDT) Salicylate Level <1.7(L) 2.0 - 29.0 mg/dL LAB CHEMISTRY METHOD 04/26/2025 6:54 PM EDT [facility] Blood Venous blood specimen / Unknown Venipuncture / Unknown 04/26/2025 6:08 PM EDT 04/26/2025 6:22 PM EDT Jesse Baltazar MD LAB BLOOD ORDERABLES Final Resu lt Performing Organization Address [facility] de Phone Number [facility] [address] [place] [address], [place] [phone] * (ABNORMAL) Acetaminophen level (04/26/2025 6:08 PM EDT) Acetaminophen Level <2.0(L) 10.0 - 30.0 mcg/mL LAB CHEMISTRY METHOD 04/26/2025 6:58 PM EDT [facility] Blood Venous blood specimen / Unknown Venipuncture / Unknown 04/26/2025 6:08 PM EDT 04/26/2025 6:22 PM EDT Jesse Baltazar MD LAB BLOOD ORDERABLES Final Resu lt Performing Organization Address City/[facility]/ZIP Co de Phone Number [facility] [address] [place] [address], [place] [phone] * Ethanol (04/26/2025 6:08 PM EDT) [facility] Ethanol Level 3 0 - 10 mg/dL LAB CHEMISTRY METHOD 04/26/2025 6:56 PM EDT [facility] Blood Venous blood specimen / Unknown Venipuncture / Unknown 04/26/2025 6:08 PM EDT 04/26/2025 6:22 PM EDT us Jesse Baltazar MD LAB BLOOD ORDERABLES Final Resu lt [facility] [address] [place] [address], [place] [phone] * (ABNORMAL) Comprehensive metabolic panel (04/26/2025 6:08 PM EDT) [facility] Sodium 136 133 - 145 mmol/L LAB CHEMISTRY METHOD 04/26/2025 6:58 PM [facility] Potassium 3.6 3.5 - 5.5 mmol/L LAB CHEMISTRY METHOD 04/26/2025 6:58 PM [facility] Chloride 102 96 - 110 mmol/L LAB CHEMISTRY METHOD 04/26/2025 6:58 PM [facility] CO2 30 21 - 32 mmol/L LAB CHEMISTRY METHOD 04/26/2025 6:58 PM T [facility] Anion Gap 4 3 - 11 LAB CHEMISTRY METHOD 04/26/2025 6:58 PM [facility] Glucose 85 70 - 100 mg/dL LAB CHEMISTRY METHOD 04/26/2025 6:58 PM [facility] BUN 22 5 - 25 mg/dL LAB CHEMISTRY METHOD 04/26/2025 6:58 PM [facility] Creatinine 1.69(H) 0.70 - 1.30 mg/dL LAB CHEMISTRY METHOD 04/26/2025 6:58 PM [facility] eGFR 48(L) >=60 mL/min/1. 73m2 LAB CHEMISTRY METHOD 04/26/2025 6:58 PM [facility] Comment:Calculation based on the Chronic Kidney Disease Epidemiology Collaboration (CKD-EPI) equation refit without adjustment for race. BUN/Creatinine Ratio 13.0 LAB CHEMISTRY METHOD 04/26/2025 6:58 PM [facility] Calcium 9.3 8.5 - 10.5 mg/dL LAB CHEMISTRY METHOD 04/26/2025 6:58 PM [facility] [facility] AST (SGOT) 44(H) 10 - 42 unit/L LAB CHEMISTRY METHOD 04/26/2025 6:58 PM [facility] ALT (SGPT) 25 10 - 60 unit/L LAB CHEMISTRY METHOD 04/26/2025 6:58 PM [facility] Alkaline Phosphatase 65 42 - 121 unit/L LAB CHEMISTRY METHOD 04/26/2025 6:58 PM [facility] Total Protein 7.6 6.0 - 8.0 g/dL LAB CHEMISTRY METHOD 04/26/2025 6:58 PM [facility] Albumin 4.8 3.2 - 5.0 g/dL LAB CHEMISTRY METHOD 04/26/2025 6:58 PM [facility] Total Bilirubin 0.7 0.0 - 1.4 mg/dL LAB CHEMISTRY METHOD 04/26/2025 6:58 PM [facility] Blood Venous blood specimen / Unknown Venipuncture / Unknown 04/26/2025 6:08 PM EDT 04/26/2025 6:22 PM EDT us Jesse Baltazar MD LAB BLOOD ORDERABLES Final Resu lt [facility] [address] [place] [address], [place] [phone] * Methadone, urine (04/26/2025 5:50 PM EDT) Methadone Screen, Urine Negative Negative LAB CHEMISTRY METHOD 04/26/2025 6:55 PM EDT [facility] Comment: Assay cutoff 300 ng/mL Semi-quantitative assay for screening purposes only. Unconfirmed screening result should not be used for non-medical purposes. *ALTERNATE METHOD CONFIRMATION DONE UPON REQUEST ONLY* Urine Urine specimen obtained by clean catch procedure / Unknown Non-blood Collection / Unknown 04/26/2025 5:50 PM EDT 04/26/2025 6:23 PM EDT us Jesse Baltazar MD LAB URINE ORDERABLES Final Resu lt Performing Organization Address [facility] de Phone Number [facility] [address] [place] [address], [place] [phone] * Phencyclidine, urine (04/26/2025 5:50 PM EDT) PCP Scrn, Ur Negative Negative LAB CHEMISTRY METHOD 04/26/2025 6:59 PM EDT [facility] Comment: Assay cutoff 25 ng/mL Semi-quantitative assay for screening purposes only. Unconfirmed screening result should not be used for non-medical purposes. *ALTERNATE METHOD CONFIRMATION DONE UPON REQUEST ONLY* Urine Urine specimen obtained by clean catch procedure / Unknown Non-blood Collection / Unknown 04/26/2025 5:50 PM EDT 04/26/2025 6:23 PM EDT us Jesse Baltazar MD LAB URINE ORDERABLES Final Resu lt Performing Organization Address [facility]/ZIP Co de Phone Number [facility] [address] [place] [address], [place] [phone] * Buprenorphine screen, urine (04/26/2025 5:50 PM EDT) Buprenorphine Screen Urine Negative Negative LAB CHEMISTRY METHOD 04/26/2025 6:55 PM EDT [facility] Urine Urine specimen obtained by clean catch procedure / Unknown Non-blood Collection / Unknown 04/26/2025 5:50 PM EDT 04/26/2025 6:23 PM EDT Narrative [facility] - 04/26/2025 6:55 PM EDT Assay cutoff 5 ng/mL Semi-quantitative assay for screening purposes only. Unconfirmed screening result should not be used for non-medical purposes. *ALTERNATE METHOD CONFIRMATION DONE UPON REQUEST ONLY* us Jesse Baltazar MD LAB URINE ORDERABLES Final Resu lt [facility] [address] [place] [address], [place] [phone] * (ABNORMAL) Drug abuse screen 8a panel, urine (04/26/2025 5:50 PM EDT) Amphetamine Screen, Ur Negative Negative LAB CHEMISTRY METHOD 5 6:55 PM EDT [facility] Comment:Certain OTC medicati ons containing ephedrine, phenylephrine, pseudoephedrine and phenylpropanolamine can cause false positive results. Barbiturate Screen, Ur Negative Negative LAB CHEMISTRY METHOD 5 6:55 PM EDT [facility] Benzodiazepine Screen, Ur Positive(A ) Negative LAB CHEMISTRY METHOD 5 6:55 PM EDT [facility] Cocaine Screen, Ur Negative Negative LAB CHEMISTRY METHOD 5 6:55 PM EDT [facility] Opiate Screen, Ur Negative Negative LAB CHEMISTRY METHOD 5 6:55 PM EDT [facility] Cannabinoid (THC) Screen, Ur Negative Negative LAB CHEMISTRY METHOD 5 6:55 PM EDT [facility] Comment:Specimens from patie nts taking pantoprazole sodium (Protonix) have been shown to produce false positive results. Oxycodone Screen, Ur Negative Negative LAB CHEMISTRY METHOD 6:55 PM EDT [facility] Fentanyl, Ur Negative Negative LAB CHEMISTRY METHOD 6:55 PM EDT [facility] Urine Urine specimen obtained by clean catch procedure / Unknown Non-blood Collection / Unknown 04/26/2025 5:50 PM EDT 04/26/2025 6:23 PM EDT Narrative [facility] - 04/26/2025 6:55 PM EDT Assay cutoffs: Amphetamines 1000 ng/mL Barbiturates 200 ng/mL Benzodiazepines 200 ng/mL Cocaine 300 ng/mL Fentanyl 1 ng/mL Opiates 300 ng/mL Oxycodone 100 ng/mL THC 50 ng/mL Semi-quantitative assay for screening purposes only. Unconfirmed screening result should not be used for non-medical purposes. *ALTERNATE METHOD CONFIRMATION DONE UPON REQUEST ONLY* us Jesse Baltazar MD LAB URINE ORDERABLES Final Resu lt [facility] [address] [place] [address], documented in this encounter Visit Diagnoses Diagnosis Suicidal ideation- Primary Current episode of major depressive disorder without prior episode, unspecified depression episode severity Anxiety disorder, unspecified type documented in this encounter Administered Medications Inactive Administered Medications - up to 3 most recent administrations Medication Order MAR Action Action Date Dose Rate Site acetaminophen (TYLENOL) tablet 1,000 mg 1,000 mg, oral, 3 times daily, First dose on Fri04/26/25 at 2100 Given 04/26/2025 8:11 PM EDT 1,000 mg aluminum-magnesium hydroxide-simethicone (MAALOX) 200-200-20 mg/5 mL suspension 30 mL 30 mL, oral, Every 8 hours PRN, heartburn, indigestion, Starting on Fri04/26/25 at 1731 melatonin tablet 6 mg 6 mg, oral, Nightly PRN, sleep, Starting on Fri04/26/25 at 1731 ondansetron ODT (ZOFRAN-ODT) disintegrating tablet 4 mg 4 mg, oral, Every 8 hours PRN, nausea, vomiting, Starting on Fri04/26/25 at 1731 documented in this encounter Historical Medications * This list may reflect changes made after this encounter. lurasidone (LATUDA) 40 mg tablet Take 1 tablet (40 mg total) by mouth 1 (one) time each day with breakfast. added in this encounter Active and Recently Administered Medications Times are shown in EDT. Scheduled Medication Order 04/24/2025 04/25/2025 04/26/2025 acetaminophen (TYLENOL) tablet 1,000 mg 1,000 mg, oral, 3 times daily, First dose on Fri04/26/25 at 2100 2010 (Given - Provid er: Amaris Pino RN) PRN Medication Order 04/24/2025 04/25/2025 04/26/2025 aluminum-magnesium hydroxide-simethicone (MAALOX) 200-200-20 mg/5 mL suspension 30 mL 30 mL, oral, Every 8 hours PRN, heartburn, indigestion, Starting on Fri04/26/25 at 1731 melatonin tablet 6 mg 6 mg, oral, Nightly PRN, sleep, Starting on Fri04/26/25 at 1731 ondansetron ODT (ZOFRAN-ODT) disintegrating tablet 4 mg 4 mg, oral, Every 8 hours PRN, nausea, vomiting, Starting on Fri04/26/25 at 1731 documented in this encounter Orders Medications Ordered That Uvaldo ht Not Have Been Administered Count Last Ordered Date First Ordered Date aluminum-magnesium hydroxide -simethicone (MAALOX) 200-200-20 mg/5 mL suspension 30 mL 1 04/26/2025 melatonin tablet 6 mg 1 04/26/2025 ondansetron ODT (ZOFRAN-ODT) disintegrating tablet 4 mg 1 04/26/2025 Consult Count Last Ordered Date First Orde red Date IP CONSULT TO [employer] 1 04/26/2025 documented in this encounter Care Teams Milling Operator Relationship Specialty Start Date End Date Physician, No Pcp PCP - General 01/03/25 documented as of this encounter
--- OUTSIDE RECORDS SUMMARY | 2025-04-27 05:00 | XMS_ITS ---
Author Organization [facility] Address [address] [place] [address] Care Team Providers Care Jigsaw Operator Name Role Phone Provi imsa [phone] Karol Carmella Unavailable REASON FOR VISIT New Intake Encounters Encounter Location Date Provider Diagnosis [facility] [address], [place] [id number] 04/27/2025 Carmella Roberson Plan Of Treatment No Information Progress Notes * Terence MANDOB:1970 ([age] yo M)Acc No.[id number]:04/27/2025 Case Management Patient: Terence GRAY Provider: Jesus Roberson :1970 A ge:54 Y S ex:Male Date:04/27/2025 Address:[address] [place], [place] [id number] Pcp:[facility] nter Subjective: * Chief Complaints: * 1 . New Intake. * HPI: S ocial Service: Date of encounter 0 04/27/2025. R eferral Source w alk-in, self. I nterpretation for medical provider N e Intake, Mail Intake. A dvocacy?none. F ollow-up Required: y es. P t comprehension P t agrees with plan, Patient understood process and assisted with process. A ction taken (old) f orm completion, Items given to client, Letter given to patient after photo copy made. * Medical History: Objective: * Vitals: Assessment: Plan: * Treatment: * Images: Billing Information: * Visit Code: * Procedure Codes: Care Plan Details* * Sign off status: Completed true * Provider: Jesus Roberson Date: 0 04/27/2025 Generated for Satinder de anda/Sneha/Willam on: 0 04/27/2025 10:05 PM EDT History and Physical Notes * HPI (History of Present Illness) Category Sub-Category Detail Notes Category Not es Social Service Referral Source walk-in, self Interpretation for medical provider Ne I anabell, Mail Intake Action taken (old) form completion, Ite ms given to client, Letter given to patient after photo copy made Advocacy none Follow-up Required: yes Pt comprehension Pt agrees with plan, Patient understood process and assisted with process Date of encounter 04/27/2025
[2025-04-27 19:25] VITALS: BP 156/78; PULSE 100; O2SAT 97; BMI 25.2
[2025-04-27 19:39] VITALS: BP 159/89; PULSE 82; RESP 16; TEMP 36.1; O2SAT 98
[2025-04-27 19:57] LABS: Appearance Urine Clear; Glucose Urine UA Negative (Negative); PH 6.0 (5.0-9.0); Specific Gravity - Urine 1.015 (1.005-1.025); UMIC TRIGGER UACC YES
[2025-04-27 20:13] LABS: Cannabinoid Screen Urine Not Detected (Not Detect)
--- NOTE | 2025-04-27 20:34 | PC.NURSE ---
Pt comes [place] the bus stop via EMS with complaints of SI with no plan. PT is well groomed, and tearful during triage. He states he has been thinking of his mother who and says he was very close to her and has been thinking of the good times they had causing him to be more depressed. He notes that at home he was hitting himself into the wall pt states that his thoughts of SI have now resolved, however the depression continues. He states he did not take his medication today but has be otherwise complaint. He denies any medical concerns including CP, SOB, musculoskeletal concerns or GI/ issues. PT denies any substance or ETOH use. low falls risk. Care team consult, labs and safety checks ordered. 15 minute check established, Video monitoring on. Plan of care ongoing
[2025-04-27 20:50] LABS: MANUAL DIFF FLAG NO
[2025-04-27 20:51] LABS: Hematocrit 36.6 % (42.0-52.0); Hemoglobin 12.6 g/dl (14.0-18.0); Imm Gran Abs Auto 0.03 X10*3/uL (0.00-0.03); Imm Gran Pct Auto 0.3 % (0.0-0.4); Lymphocytes Absolute Auto 2.1 X10*3/uL (1.2-4.9); Mean Corpuscular HGB Conc 34.4 g/dl (31.0-36.0); Mean Corpuscular Hemoglobin 29.0 pg (27.0-33.0); Mean Corpuscular Volume 84.1 fL (80.0-98.0); NRBC Abs Auto 0.000 X10*3/uL (0.0-0.012); NRBC Pct Auto 0.0 /100WBC (0.0-0.2); Platelet Count 278 X10*3/uL (160-400); Red Blood Count 4.35 X10*6/uL (4.60-5.80); White Blood Count 10.2 X10*3/uL (4.8-10.8)
[2025-04-27 21:02] LABS: Lithium 0.46 mmol/L (0.60-1.20)
[2025-04-27 21:13] LABS: Alanine Aminotransferase 25 U/L (0-40); Albumin Level 4.9 g/dL (3.5-5.0); Alkaline Phosphatase 68 U/L (39-117); Anion Gap 13 (12-20); Aspartate Amino Transferase 40 U/L (5-37); Blood Urea Nitrogen 20 mg/dL (9-16); Calcium 9.4 mg/dL (8.4-10.2); Carbon Dioxide 27 mmol/L (22-29); Chloride 107 mmol/L (96-108); Creatinine Clr Calc Pharmacy 47.4; Estimated Glomerular Filt Rate 49; Potassium 3.5 mmol/L (3.3-5.1); Sodium 143 mmol/L (135-145); Total Protein 7.6 g/dL (6.5-8.0)
--- OUTSIDE RECORDS SUMMARY | 2025-04-27 22:04 | XMS_ITS | Encounter Summary ---
Author Organization [employer] Address [address] [place] [address] Care Team Providers Care Assistant Professor Of Biology Name Role Phone Physician, No Pcp Primary Care Provider Unavaila ble Encounter Details Date Type Department Care Team (Late st Contact Info) Description 02/16/2025 Lab Requisition [facility] - Main Lab [address] [facility] [address] [place] [address] Albertina Garcia NP [address] [place] [address] Other ch[facility] (current) drug therapy Social History Tobacco Use [...] LDL Routine 02/16/2025 7:00 AM EDT Other rn long term care (current) drug therapy HEMOGLOBIN A1C Routine 02/16/2025 7:00 AM EDT Other ch[facility] (current) drug therapy GLUCOSE, RANDOM Routine 02/16/2025 7:00 AM EDT Other rn long term care (current) drug therapy documented in this encounter Results * Hemoglobin A1c (02/16/2025 7:00 AM EDT) Pathologist [facility] Hemoglobin A1C 5.3 <6.5 % LAB CHEMISTRY METHOD 02/16/2025 12:37 PM EDT [facility] Mean Bld Glu Estim. 105 mg/dL LAB CHEMISTRY METHOD 02/16/2025 12:37 PM EDT [facility] Blood Venous blood specimen / Unknown Venipuncture / Unknown 02/16/2025 7:00 AM EDT 02/16/2025 10:07 AM EDT us Albertina Moya NP LAB BLOOD ORDERABLES Final Re sult [facility] [address] [place] [address], [place] [phone] * (ABNORMAL) Lipid panel with reflex to direct LDL (02/16/2025 7:00 AM EDT) Cholesterol 190 0 - 200 mg/dL LAB CHEMISTRY METHOD 02/16/2025 12:36 PM EDT [facility] Triglycerides 88 0 - 150 mg/dL LAB CHEMISTRY METHOD 02/16/2025 12:36 PM EDT [facility] HDL 71 >=40 mg/dL LAB CHEMISTRY METHOD 02/16/2025 12:36 PM EDT [facility] LDL Calculated 101(H) 0 - 100 mg/dL LAB CHEMISTRY METHOD 02/16/2025 12:36 PM EDT [facility] VLDL Cholesterol Prieto 17.6 mg/dL LAB CHEMISTRY METHOD 02/16/2025 12:36 PM EDT [facility] Non HDL Chol. (LDL+VLDL) 119 <145 mg/dL LAB CHEMISTRY METHOD 02/16/2025 12:36 PM EDT [facility] Chol/HDL Ratio 2.7 0.0 - 4.4 LAB CHEMISTRY METHOD 02/16/2025 12:36 PM EDT [facility] Blood Venous blood specimen / Unknown Venipuncture / Unknown 02/16/2025 7:00 AM EDT 02/16/2025 10:07 AM EDT Albertina Garcia V, CONFIGURATION CONSULTANT LAB BLOOD ORDERABLES Final Re sult [facility] [address] [place] [address], * (ABNORMAL) Glucose, random (02/16/2025 7:00 AM EDT) Glucose 49(L) 70 - 100 mg/dL LAB CHEMISTRY METHOD 02/16/2025 12:35 PM EDT [facility] Blood Venous blood specimen / Unknown Venipuncture / Unknown 02/16/2025 7:00 AM EDT 02/16/2025 10:07 AM EDT us Albertina Garcia V, CONFIGURATION CONSULTANT LAB BLOOD ORDERABLES Final Re sult [facility] ([facility] [address] [place] [address], documented in this encounter Visit Diagnoses Diagnosis Other rn long term care (current) drug therapy documented in this encounter Care Teams Assistant Professor Of Biology Relationship Specialty Start Date End Date Physician, No Pcp PCP - General 01/03/25 documented as of this encounter
--- OUTSIDE RECORDS SUMMARY | 2025-04-27 22:04 | XMS_ITS | Encounter Summary ---
Author Organization [employer] Address [address] [place] [address] Care Team Providers Care Fiberglass Grinder Name Role Phone Physician, No Pcp Primary Care Provider Unavaila ble Encounter Details Date Type Department Care Team (Late st Contact Info) Description 02/16/2025 Lab Requisition [facility] - Main Lab [address] [facility] [place] [address] Delores Thomson, [facility] [address] [place] [address] Other exterminator helper (current) drug therapy Social History Tobacco Use [...] PANEL Routine 02/16/2025 7:00 AM EDT Other senior care (current) drug therapy documented in this encounter Results * (ABNORMAL) Basic metabolic panel (02/16/2025 7:00 AM EDT) Sodium 138 133 - 145 mmol/L LAB CHEMISTRY METHOD 02/16/2025 12:[address] [facility] Potassium 5.0 3.5 - 5.5 mmol/L LAB CHEMISTRY METHOD 02/16/2025 12:[address] [facility] Comment:Hemolysis present Chloride 106 96 - 110 mmol/L LAB CHEMISTRY METHOD 02/16/2025 12:[address] [facility] CO2 23 21 - 32 mmol/L LAB CHEMISTRY METHOD 02/16/2025 12:[address] [facility] Anion Gap 9 3 - 11 LAB CHEMISTRY METHOD 02/16/2025 12:[address] [facility] Glucose 49(L) 70 - 100 mg/dL LAB CHEMISTRY METHOD 02/16/2025 12:[address] [facility] Comment:Results verified by repeat testing BUN 23 5 - 25 mg/dL LAB CHEMISTRY METHOD 02/16/2025 12:[address] [facility] Creatinine 1.19 0.70 - 1.30 mg/dL LAB CHEMISTRY METHOD 02/16/2025 12:[address] [facility] eGFR 73 >=60 mL/min/1. 73m2 LAB CHEMISTRY METHOD 02/16/2025 12:10 PM EDT [facility] Comment:Calculation based on the Chronic Kidney Disease Epidemiology Collaboration (CKD-EPI) equation refit without adjustment for race. BUN/Creatinine Ratio 19.3 LAB CHEMISTRY METHOD 02/16/2025 12:10 PM EDT [facility] Calcium 9.5 8.5 - 10.5 mg/dL LAB CHEMISTRY METHOD 02/16/2025 12:10 PM EDT [facility] Blood Venous blood specimen / Unknown Venipuncture / Unknown 02/16/2025 7:00 AM EDT 02/16/2025 10:04 AM EDT us Delores Thomson EXTRUDER OPERATOR HORIZONTAL LAB BLOOD ORDERABLES Final Result [facility] [address] [place] [address], documented in this encounter Visit Diagnoses Diagnosis Other exterminator helper (current) drug therapy documented in this encounter Care Teams Fiberglass Grinder Relationship Specialty Start Date End Date Physician, No Pcp PCP - General 01/03/25 documented as of this encounter
--- OUTSIDE RECORDS SUMMARY | 2025-04-27 22:05 | XMS_ITS | Clinical Summary ---
Author Organization [facility] Address [address] [place] [address] Phone Care Team Providers Care Tassel Clipper Name Role Phone Physician, No Pcp Primary Care Provider Unavaila ble Allergies No known active allergies Medications diclofenac (VOLTAREN) 1 % topical gel Apply 2 g topically 2 (two) times a day. Active fenofibrate (TRICOR) 145 mg tablet Take 1 tablet (145 mg total) by mouth 1 (one) time each day. Active sertraline (ZOLOFT) 100 mg tablet Take 0.5 tablets (50 mg total) by mouth 1 (one) time each day. Active meloxicam (MOBIC) 15 mg tablet Take 1 tablet (15 mg total) by mouth 1 (one) time each day. Active clonazePAM (KlonoPIN) 2 mg tablet Take 1 tablet (2 mg total) by mouth 2 (two) times a day. Active amLODIPine (NORVASC) 5 mg tablet Take 2 [...] mouth 1 (one) time each day. Active lurasidone (LATUDA) 40 mg tablet Take 1 tablet (40 mg total) by mouth 1 (one) time each day with breakfast. Active Encounters Date Type Department Care Team Description 04/26/2025 5:21 PM EDT - 04/26/2025 9:29 PM EDT Emergency [facility] Emergency [address] [place] [phone] Jesse Baltazar MD Damri, Kevin Nicholas, MD Suicidal ideation (Primary Dx); Current episode of major depressive disorder without prior episode, unspecified depression episode severity; Anxiety disorder, unspecified type Discharge Disposition: Home or Self Care 02/16/2025 Lab Requisition [facility] [address] [place] [address] Delores Thomson FNP Other chcf (current) drug therapy 02/16/2025 Lab Requisition [facility] [address] [place] [address] Albertina Garcia V, COTTON TIER Other psychiatric nurse practitioner (current) drug therapy 02/13/2025 9:24 PM EDT - 02/15/2025 2:00 PM EDT Emergency [facility] Emergency [address] [place] [phone] Gloria Jackson DO Landry, Jonathan P, MD Suicidal ideation (Primary Dx); Visual hallucination; Polysubstance abuse ([facility] V24, [facility] V28) Discharge Disposition: Psychiatric Hospital from Last 3 Months Medical History Medical History Date Comments DJD (degenerative joint disease) per EMR/ chronic pain left knee Bipolar 2 disorder (CMS/HCC V24, CMS/HCC V28) per emr Hypertension per emr Hepatitis [...] Mass Index 34.33 04/26/2025 5:50 PM EDT Plan of Treatment Health Maintenance [...] 07/07/2022 Depression Screening 08/04/2024 COVID-19 Vaccine ( - season) 2025 01/03/2021, 12/12/2020 Influenza Vaccine (#1) 2025 04/19/2021 Hypertension/CHF/CAD Annual BMP Blood Test 04/26/2026 04/26/2025, 04/01/2025, 02/16/2025, Additional history exists Cholesterol Screening (Lipid Panel) 02/16/2030 02/16/2025, 11/04/2022, 12/08/2020 DTaP,Tdap,and Td Vaccines (2 - Td or Tdap) 04/19/2031 04/19/2021 RSV Immunization Adult Patients (1 - 1-dose 75+ series) 2045 HIB Vaccines Aged Out No longer eligi [...] AUTO DIFFERENTIAL STAT 04/26/2025 6:08 PM EDT SALICYLATE LEVEL STAT 04/26/2025 6:08 PM EDT ACETAMINOPHEN LEVEL STAT 04/26/2025 6 :08 PM EDT ETHANOL STAT 04/26/2025 6:08 PM EDT COMPREHENSIVE METABOLIC PANEL STAT 04/26/2025 6:08 PM EDT CBC AND DIFFERENTIAL STAT 04/26/2025 6:08 PM EDT METHADONE SCREEN, URINE STAT 04/26/2025 5:50 PM EDT PHENCYCLIDINE, URINE STAT 04/26/2025 5:50 PM EDT BUPRENORPHINE SCREEN, URINE STAT 04/26/2025 5:50 PM EDT DRUG ABUSE SCREEN 8A PANEL, URINE STAT 04/26/2025 5:50 PM EDT BASIC METABOLIC PANEL Routine 02/16/2025 7:00 AM EDT Other chcf (current) drug therapy HEMOGLOBIN A1C Routine 02/16/2025 7:00 AM EDT Other psychiatric nurse practitioner (current) drug therapy LIPID PANEL WITH REFLEX TO DIRECT LDL Routine 02/16/2025 7:00 AM EDT Other psychiatric nurse practitioner (current) drug therapy GLUCOSE, RANDOM Routine 02/16/2025 7:00 AM EDT Other psychiatric nurse practitioner (current) drug therapy CT HEAD WO CONTRAST [...] from Last 3 Months Results * (ABNORMAL) CBC auto differential (04/26/2025 6:08 PM EDT) Only the most recent of2 resultswithin the time period is included. WBC 11.3(H) 4.8 - 10.8 K/mcL LAB HEMETOLOGY METHOD 04/26/2025 6:30 PM EDT [facility] RBC 4.40(L) 4.50 - 5.50 M/mcL LAB HEMETOLOGY METHOD [facility] Hemoglobin 12.5(L) 13.5 - 17.5 g/dL LAB HEMETOLOGY METHOD 04/26/2025 6:30 PM EDT [facility] Hematocrit 38.4(L) 42.0 - 54.0 % LAB HEMETOLOGY METHOD 04/26/2025 6:[facility] MCV 86.7 79.0 - 98.0 FL LAB HEMETOLOGY METHOD 04/26/2025 6:30 [facility] MCH 28.2 27.0 - 32.0 pcg LAB HEMETOLOGY METHOD 04/26/2025 6:30 [facility] MCHC 32.6 32.0 - 37.0 g/dL LAB HEMETOLOGY METHOD 04/26/2025 6:30 [facility] RDW 13.6 11.0 - 15.0 % LAB HEMETOLOGY METHOD 04/26/2025 6:30 PM [facility] Platelets 292 130 - 400 K/[facility] LAB HEMETOLOGY METHOD 04/26/2025 6:30 PM EDT [facility] MPV 11.3(H) 7.0 - 11.0 FL LAB HEMETOLOGY METHOD 04/26/2025 6:30 [facility] NRBC 0.0 <1.0 % LAB HEMETOLOGY METHOD 04/26/2025 6:30 [facility] NRBC Absolute 0.00 <0.10 K/[facility] LAB HEMETOLOGY METHOD 04/26/2025 6:30 PM EDT [facility] Neutrophils Relative 74.1 % LAB HEMETOLOGY METHOD 04/26/2025 6:30 PM [facility] Lymphocytes Relative 16.2 % LAB HEMETOLOGY METHOD 04/26/2025 6:30 PM [facility] Monocytes Relative 6.7 % LAB HEMETOLOGY METHOD 04/26/2025 6:30 PM [facility] Eosinophils Relative 2.0 % LAB HEMETOLOGY METHOD 04/26/2025 6:30 PM [facility] Basophils Relative 0.6 % LAB HEMETOLOGY METHOD 04/26/2025 6:30 PM [facility] Immature Granulocytes Relative 0.4 % LAB HEMETOLOGY METHOD 04/26/2025 6:30 PM [facility] Neutrophils Absolute 8.34(H) 1.50 - 7.00 K/mcL LAB HEMETOLOGY METHOD 04/26/2025 6:30 PM [facility] Lymphocytes Absolute 1.82 1.00 - 5.00 K/mcL LAB HEMETOLOGY METHOD 04/26/2025 6:30 PM [facility] Monocytes Absolute 0.75 0.20 - 1.00 K/mcL LAB HEMETOLOGY METHOD 04/26/2025 6:30 PM [facility] Eosinophils Absolute 0.22 0.00 - 0.50 K/mcL LAB HEMETOLOGY METHOD 04/26/2025 6:30 PM [facility] Basophils Absolute 0.07 0.00 - 0.20 K/mcL LAB HEMETOLOGY METHOD 04/26/2025 6:30 PM [facility] Immature Granulocytes Absolute 0.05(H) 0.00 - 0.03 K/mcL LAB HEMETOLOGY METHOD 04/26/2025 6:30 PM [facility] Blood Venous blood specimen / Unknown Venipuncture / Unknown 04/26/2025 6:08 PM EDT 04/26/2025 6:22 PM EDT us Jesse Baltazar MD LAB BLOOD ORDERABLES Final Resu lt Performing Organization Address City/[facility]/ZIP Co de Phone Number [facility] [address] [place] [address], [place] [phone] * Ethanol (04/26/2025 6:08 PM EDT) Only the most recent of2 resultswithin the time period is included. Ethanol Level 3 0 - 10 mg/dL LAB CHEMISTRY METHOD 04/26/2025 6:56 PM EDT [facility] Blood Venous blood specimen / Unknown Venipuncture / Unknown 04/26/2025 6:08 PM EDT 04/26/2025 6:22 PM EDT us Jesse Baltazar MD LAB BLOOD ORDERABLES Final Resu lt Performing Organization Address [facility] Co de Phone Number [facility] [address] [place] [address], [place] [phone] * (ABNORMAL) Acetaminophen level (04/26/2025 6:08 PM EDT) Only the most recent of2 resultswithin the time period is included. Acetaminophen Level <2.0(L) 10.0 - 30.0 mcg/mL LAB CHEMISTRY METHOD 04/26/2025 6:58 PM EDT [facility] Blood Venous blood specimen / Unknown Venipuncture / Unknown 04/26/2025 6:08 PM EDT 04/26/2025 6:22 PM EDT us Jesse Baltazar MD LAB BLOOD ORDERABLES Final Resu lt Performing Organization Address City/[facility]/ZIP Co de Phone Number [facility] [address] [place] [address], [place] [phone] * (ABNORMAL) Salicylate level (04/26/2025 6:08 PM EDT) Only the most recent of2 resultswithin the time period is included. Pathologist [facility] Salicylate Level <1.7(L) 2.0 - 29.0 mg/dL LAB CHEMISTRY METHOD 04/26/2025 6:54 PM EDT [facility] Blood Venous blood specimen / Unknown Venipuncture / Unknown 04/26/2025 6:08 PM EDT 04/26/2025 6:22 PM EDT Jesse Baltazar MD LAB BLOOD ORDERABLES Final Resu lt [facility] [address] [place] [address], [place] [phone] * (ABNORMAL) Comprehensive metabolic panel (04/26/2025 6:08 PM EDT) Only the most recent of2 resultswithin the time period is included. Pathologist [facility] Sodium 136 133 - 145 mmol/L LAB CHEMISTRY METHOD 04/26/2025 6:58 PM [facility] Potassium 3.6 3.5 - 5.5 mmol/L LAB CHEMISTRY METHOD 04/26/2025 6:58 PM [facility] Chloride 102 96 - 110 mmol/L LAB CHEMISTRY METHOD 04/26/2025 6:58 PM T [facility] CO2 30 21 - 32 mmol/L LAB CHEMISTRY METHOD 04/26/2025 6:58 PM [facility] Anion Gap 4 3 - 11 LAB CHEMISTRY METHOD 04/26/2025 6:58 PM [facility] Glucose 85 70 - 100 mg/dL LAB CHEMISTRY METHOD 04/26/2025 6:58 PM [facility] BUN 22 5 - 25 mg/dL LAB CHEMISTRY METHOD 04/26/2025 6:58 PM [facility] Creatinine 1.69(H) 0.70 - 1.30 mg/dL LAB CHEMISTRY METHOD 04/26/2025 6:58 PM [facility] eGFR 48(L) >=60 mL/min/1. 73m2 LAB CHEMISTRY METHOD 04/26/2025 6:58 PM [facility] Comment:Calculation based on the Chronic Kidney Disease Epidemiology Collaboration (CKD-EPI) equation refit without adjustment for race. BUN/Creatinine Ratio 13.0 LAB CHEMISTRY METHOD 04/26/2025 6:58 PM [facility] Calcium 9.3 8.5 - 10.5 mg/dL LAB CHEMISTRY METHOD 04/26/2025 6:58 PM [facility] AST (SGOT) 44(H) 10 - 42 unit/L LAB CHEMISTRY METHOD 04/26/2025 6:58 PM [facility] ALT (SGPT) 25 10 - 60 unit/L LAB CHEMISTRY METHOD 04/26/2025 6:58 PM [facility] Alkaline Phosphatase 65 42 - 121 unit/L LAB CHEMISTRY METHOD 04/26/2025 6:58 PM [facility] Total Protein 7.6 6.0 - 8.0 g/dL LAB CHEMISTRY METHOD 04/26/2025 6:58 PM [facility] Albumin 4.8 3.2 - 5.0 g/dL LAB CHEMISTRY METHOD 04/26/2025 6:58 PM [facility] Total Bilirubin 0.7 0.0 - 1.4 mg/dL LAB CHEMISTRY METHOD 04/26/2025 6:58 PM [facility] Blood Venous blood specimen / Unknown Venipuncture / Unknown 04/26/2025 6:08 PM EDT 04/26/2025 6:22 PM EDT us Jesse Baltazar MD LAB BLOOD ORDERABLES Final Resu lt [facility] [address] [place] [address], * (ABNORMAL) Drug abuse screen 8a panel, urine (04/26/2025 5:50 PM EDT) Only the most recent of2 resultswithin the time period is included. Amphetamine Screen, Ur Negative Negative LAB CHEMISTRY METHOD 6:55 PM EDT [facility] Comment:Certain OTC medicati ons containing ephedrine, phenylephrine, pseudoephedrine and phenylpropanolamine can cause false positive results. Barbiturate Screen, Ur Negative Negative LAB CHEMISTRY METHOD 6:55 PM EDT [facility] Benzodiazepine Screen, Ur Positive(A ) Negative LAB CHEMISTRY METHOD 6:55 PM EDT [facility] Cocaine Screen, Ur Negative Negative LAB CHEMISTRY METHOD 6:55 PM EDT [facility] Opiate Screen, Ur Negative Negative LAB CHEMISTRY METHOD 6:55 PM EDT [facility] Cannabinoid (THC) Screen, Ur Negative Negative LAB CHEMISTRY METHOD 6:55 PM EDT [facility] Comment:Specimens from patie nts taking pantoprazole sodium (Protonix) have been shown to produce false positive results. Oxycodone Screen, Ur Negative Negative LAB CHEMISTRY METHOD 6:55 PM EDT [facility] Fentanyl, Ur Negative Negative LAB CHEMISTRY METHOD 6:55 PM EDT [facility] Urine Urine specimen obtained by clean catch procedure / Unknown Non-blood Collection / Unknown 04/26/2025 5:50 PM EDT 04/26/2025 6:23 PM EDT Narrative [facility] - 04/26/2025 6:55 PM [...] ORDERABLES Final Resu lt Performing Organization Address [facility] Co de Phone Number [facility] [address] [place] [address], [place] [phone] * Buprenorphine screen, urine (04/26/2025 5:50 PM EDT) Only the most recent of2 resultswithin the time period is included. Buprenorphine Screen Urine Negative Negative LAB CHEMISTRY METHOD 04/26/2025 6:55 PM EDT [facility] Urine Urine specimen obtained by clean catch procedure / Unknown Non-blood Collection / Unknown 04/26/2025 5:50 PM EDT 04/26/2025 6:23 PM EDT Narrative [facility] - 04/26/2025 6:55 PM EDT Assay cutoff 5 ng/mL Semi-quantitative assay for screening purposes only. Unconfirmed screening result should not be used for non-medical purposes. *ALTERNATE METHOD CONFIRMATION DONE UPON REQUEST ONLY* us Jesse Baltazar MD LAB URINE ORDERABLES Final Resu lt Performing Organization Address [facility] de Phone Number [facility] [address] [place] [address], [place] [phone] * Methadone, urine (04/26/2025 5:50 PM EDT) Only the most recent of2 resultswithin the time period is included. Methadone Screen, Urine Negative Negative LAB CHEMISTRY METHOD 04/26/2025 6:55 PM EDT [facility] Comment: Assay cutoff 300 ng/mL Semi-quantitative assay for screening purposes only. Unconfirmed screening result should not be used for non-medical purposes. *ALTERNATE METHOD CONFIRMATION DONE UPON REQUEST ONLY* Urine Urine specimen obtained by clean catch procedure / Unknown Non-blood Collection / Unknown 04/26/2025 5:50 PM EDT 04/26/2025 6:23 PM EDT Jesse Baltazar MD LAB URINE ORDERABLES Final Resu lt Performing Organization Address [facility] de Phone Number [facility] [address] [place] [address], [place] [phone] * Phencyclidine, urine (04/26/2025 5:50 PM EDT) Only the most recent of2 resultswithin the time period is included. PCP Scrn, Ur Negative Negative LAB CHEMISTRY METHOD 04/26/2025 6:59 PM EDT [facility] Comment: Assay cutoff 25 ng/mL Semi-quantitative assay for screening purposes only. Unconfirmed screening result should not be used for non-medical purposes. *ALTERNATE METHOD CONFIRMATION DONE UPON REQUEST ONLY* Urine Urine specimen obtained by clean catch procedure / Unknown Non-blood Collection / Unknown 04/26/2025 5:50 PM EDT 04/26/2025 6:23 PM EDT Jesse Baltazar MD LAB URINE ORDERABLES Final Resu lt Performing Organization Address [facility]/ZIP Co de Phone Number [facility] [address] [place] [address], [place] [phone] * (ABNORMAL) Lipid panel with reflex to direct LDL (02/16/2025 7:00 AM EDT) Cholesterol 190 0 - 200 mg/dL LAB CHEMISTRY METHOD 02/16/2025 12:36 PM EDT [facility] Triglycerides 88 0 - 150 mg/dL LAB CHEMISTRY METHOD 02/16/2025 12:36 PM EDT [facility] HDL 71 >=40 mg/dL LAB CHEMISTRY METHOD 02/16/2025 12:36 PM EDT [facility] LDL Calculated 101(H) 0 - 100 mg/dL LAB CHEMISTRY METHOD 02/16/2025 12:36 PM EDT [facility] VLDL Cholesterol Prieto 17.6 mg/dL LAB CHEMISTRY METHOD 02/16/2025 12:36 PM EDT [facility] Non HDL Chol. (LDL+VLDL) 119 <145 mg/dL LAB CHEMISTRY METHOD 02/16/2025 12:36 PM EDT [facility] Chol/HDL Ratio 2.7 0.0 - 4.4 LAB CHEMISTRY METHOD 02/16/2025 12:36 PM EDT [facility] Blood Venous blood specimen / Unknown Venipuncture / Unknown 02/16/2025 7:00 AM EDT 02/16/2025 10:07 AM EDT us Albertina Moya NP LAB BLOOD ORDERABLES Final Re sult [facility] [address] [place] [address], * Hemoglobin A1c (02/16/2025 7:00 AM EDT) Hemoglobin A1C 5.3 <6.5 % LAB CHEMISTRY METHOD 02/16/2025 12:37 PM EDT [facility] Mean Bld Glu Estim. 105 mg/dL LAB CHEMISTRY METHOD 02/16/2025 12:37 PM EDT [facility] Blood Venous blood specimen / Unknown Venipuncture / Unknown 02/16/2025 7:00 AM EDT 02/16/2025 10:07 AM EDT us Albertina Garcia V, COTTON TIER LAB BLOOD ORDERABLES Final Re sult [facility] [address] [place] [address], [place] [phone] * (ABNORMAL) Glucose, random (02/16/2025 7:00 AM EDT) [facility] Glucose 49(L) 70 - 100 mg/dL LAB CHEMISTRY METHOD 02/16/2025 12:35 PM EDT [facility] Blood Venous blood specimen / Unknown Venipuncture / Unknown 02/16/2025 7:00 AM EDT 02/16/2025 10:07 AM EDT Albertina Moya NP LAB BLOOD ORDERABLES Final Re sult [facility] [address] [place] [address], [place] [phone] * (ABNORMAL) Basic metabolic panel (02/16/2025 7:00 AM EDT) Only the most recent of2 resultswithin the time period is included. [facility] Sodium 138 133 - 145 mmol/L LAB [...] LAB CHEMISTRY METHOD 02/16/2025 12:10 PM EDT [facility] Creatinine 1.19 0.70 - 1.30 mg/dL LAB CHEMISTRY METHOD 02/16/2025 12:10 PM EDT [facility] eGFR 73 >=60 mL/min/1. 73m2 LAB CHEMISTRY METHOD 02/16/2025 12:10 PM EDT [facility] Comment:Calculation based on the Chronic Kidney Disease Epidemiology Collaboration (CKD-EPI) equation refit without adjustment for race. BUN/Creatinine Ratio 19.3 LAB CHEMISTRY METHOD 02/16/2025 12:10 PM EDT [facility] Calcium 9.5 8.5 - 10.5 mg/dL LAB CHEMISTRY METHOD 02/16/2025 12:10 PM EDT [facility] Blood Venous blood specimen / Unknown Venipuncture / Unknown 02/16/2025 7:00 AM EDT 02/16/2025 10:04 AM EDT us Delores Thomson CRITICAL CARE NURSE SPECIALIST LAB BLOOD ORDERABLES Final Result [facility] [address] [place] [address], * CT Head wo Contrast (02/15/2025 12:35 PM EDT) Anatomical Region Laterality Modality Head and Neck Computed Tomogra phy 02/15/2025 1:07 PM EDT Impressions 02/15/2025 1:08 PM EDT No acute findings. -------- FINAL REPORT -------- Dictated By: Price Tyler Dictated Date: 02/15/2025 13:07 ET Assigned Physician: Price Tyler Reviewed and Electronically Signed By: Price Tyler Signed Date: 02/15/2025 13:08 ET Workstation ID: [id number] Transcribed By: Self Edit Transcribed Date: 02/15/2025 [...] Signed Date: 02/15/2025 13:08 ET Workstation ID: [id number] Transcribed By: Self Edit Transcribed Date: 02/15/2025 13:07 ET us Michael Moseley MD IM CT PROCEDURES Final Res ult * ECG 12 lead (02/14/2025 3:59 AM EDT) Ventricular Rate ECG 77 BPM GEMUSE Atrial Rate 77 BPM GEMUSE P-R Interval 138 ms GEMUSE QRS Duration 90 ms GEMUSE Q-T Interval 428 ms GEMUSE QTc 484 ms GEMUSE P Wave [place] 59 degrees GEMUSE R [place] -3 degrees GEMUSE T [place] 4 degrees GEMUSE ECG Interpretation Normal sinus rhythm Nonspecific T wave abnormality Prolonged QT Abnormal ECG No previous ECGs available Confirmed by TANMAY MOORE ([id number]) on 02/14/2025 9:00:39 AM GEMUSE 02/14/2025 3:59 AM EDT 02/14/2025 9:00 AM EDT Lenny Nelson MD ECG ORDERABLES Final Result GEMUSE * ECG-Annotated (02/14/2025) Provider Onbase ECG ORDERABLES Final Result from Last 3 Months Insurance MEDICAID - [place] Care Teams Tassel Clipper Relationship Specialty Start Date End Date Physician, No Pcp PCP - General 01/03/25
--- OUTSIDE RECORDS SUMMARY | 2025-04-27 22:05 | XMS_ITS | Clinical Summary ---
Author Organization [facility] Address [address] [place] [address] Care Team Providers Care Fashion Editor Name Role Phone Unavailable Primary Care Provider Unavailabl e Encounters Date Type Department Care Team Description 02/22/2025 Population Health Risk Score [facility] (C3) Department [address] [address] [place] [address] Provider, Population Health Generic from [...]
--- OUTSIDE RECORDS SUMMARY | 2025-04-27 22:05 | XMS_ITS | Patient Health Record ---
Author Organization [facility] Address [address] [place] [address] Care Team Providers Care Environmental Engineering Professor Name Role Phone [facility] Provi isma [phone] Carmella Roberson Unavailable Reason For Referral No Information Encounters Encounter Location Date Provider Diagnosis [facility] [address] [place] [address] [phone] 04/27/2025 Carmella Roberson Plan Of Treatment No Information Insurance Providers Payer Name Payer Address Payer Phone Subscriber Number Group Number Insured Name Patient Relationship to Insured Coverage Start Date Coverage End Date [place] Medicaid Standard [address] [place] [address] 0 Terence Anthony Self - patient is the insured
--- NOTE | 2025-04-27 23:25 | ED.PSYCH ---
HPI - Psych General Chief Complaint: Psychiatric Symptoms Stated Complaint: SI Time Seen by Provider: 04/27/25 21:01 Source: EMS Mode of arrival: EMS Limitations: other History of Present Illness ED Provider: Dr. Paloma Gunn HPI Narrative: Patient comes to the emergency room via ambulance. Patient states that he is having depression. Vague suicidal ideation. Patient hard to understand, very somnolent, arousable but mumbles, turns around and falls back asleep. Related Data Home Medications ?Medication ?Instructions ?Recorded ?Confirmed amlodipine 10 mg tablet 10 mg PO DAILY 04/15/25 04/28/25 clonazepam 2 mg tablet 2 mg PO BID 04/15/25 04/28/25 doxepin 50 mg capsule 50 mg PO BEDTIME 04/15/25 04/28/25 fenofibrate 50 mg capsule 145 mg PO DAILY 04/15/25 04/28/25 hydrocortisone 1 % topical cream 1 appl topical BID PRN Itching 04/15/25 04/28/25 lithium carbonate 150 mg capsule 150 mg PO QNOON 04/15/25 04/28/25 lithium carbonate 300 mg tablet 600 mg PO BEDTIME 04/15/25 04/28/25 melatonin 3 mg tablet 6 mg PO BEDTIME 04/15/25 04/28/25 meloxicam 15 mg tablet 15 mg PO DAILY 04/15/25 04/28/25 sertraline 50 mg tablet 50 mg PO DAILY 04/15/25 04/15/25 gabapentin 800 mg tablet 800 mg PO TID 04/28/25 04/28/25 lurasidone 40 mg tablet 40 mg PO BEDTIME 04/28/25 04/28/25 sertraline 100 mg tablet 100 mg PO DAILY 04/28/25 Allergies Allergy/AdvReac Type Severity Reaction Status Date / Time No Known Allergies (No Known Allergy Verified 04/27/25 19:47 Allergies*) Review of Systems Review of Systems: Complaining of suicidal ideation/depression Yes Other PMFSH Past Medical History Medical History (Updated 04/27/25 @ 23:34 by Paloma Gunn MD) Severe recurrent major depressive disorder with psychosis HTN (hypertension) PTSD (post-traumatic stress disorder) Depression Suicidal ideation Social History Social History (System 11/03/24 @ 10:30 by Miesha Wade) Household Members: None Housing: Homeless Do you presently have visiting nurse or other home services: No Patient Tobacco Use Status: Never used Tobacco Smoked in Last 30 Days: No Use of substances other than those prescribed or required for medical reasons: No Advance Directives: No Advance Directives Information Provided: Yes Do you have a plan to hurt others: No Plan service: No Sexual orientation: Straight/Heterosexual Physical Exam Exam: Exam: Appearance: Alert but somnolent, easily arousable, mumbles when he talks, limited how much he can answer because he falls back asleep Eyes: Pupils equal, round and reactive to light. ENT: Pharynx normal. Neck: Normal inspection. Neck supple. No lymph nodes noted. No crepitus CVS: Normal heart rate and rhythm. Pulses normal. Normal S1 and S2 Respiratory: No respiratory distress. Breath sounds normal. No Wheezing. No rales Abdomen: Soft and nontender. No rigidity. No distention. Skin: Skin warm and dry. Normal skin color. Normal skin turgor. Extremities: No lower extremity edema. No Lacerations. No Rash Neuro: Cranial nerves 2-12 are grossly intact, moves all extremities Psych: calm, somnolent Vital Signs: Vital Signs: Last Vital Signs Temp 97.3 F 04/28/25 09:14 Pulse 78 04/28/25 09:14 Resp 14 04/28/25 09:14 BP 125/84 04/28/25 09:14 Pulse Ox 100 04/28/25 09:14 O2 Del Method Room Air 04/28/25 09:14 BMI result Body Mass Index 25.2 Course Course Course Narrative: Patient comes in complaining of vague SI, depression Reevaluation(s) Reevaluation #1: Patient now is AAO x3, no SI, no HI, no hallucination, care team input is appreciated patient feels safe to be discharged home. Will discontinue physician observation now discharge. Time: 10:40 Medications Administered Generic Name Dose Route Start Last Admin Trade Name Freq PRN Reason Stop Dose Admin Amlodipine Besylate 10 mg 04/28/25 09:00 04/28/25 09:08 Amlodipine Besylate 10 Mg Tablet PO 10 mg DAILY JOSEFA Administration Protocol Doxepin HCl 50 mg 04/28/25 02:15 04/28/25 02:22 Doxepin Hcl 25 Mg Capsule PO 50 mg BEDTIME JOSEFA Administration Fenofibrate 160 mg 04/28/25 09:00 04/28/25 09:08 Fenofibrate 160 Mg Tablet PO 160 mg DAILY JOSEFA Administration [place] Carbonate 600 mg 04/28/25 01:45 04/28/25 02:22 [place] Carbonate 300 Mg Capsule PO 600 mg BEDTIME JOSEFA Administration Lurasidone HCl 40 mg 04/28/25 01:45 04/28/25 02:22 Lurasidone Hcl 40 Mg Tablet PO 40 mg BEDTIME JOSEFA Administration Melatonin 6 mg 04/28/25 01:45 04/28/25 02:22 Melatonin 3 Mg Tablet PO 6 mg BEDTIME JOSEFA Administration Medical Decision Making Medical Decision Making [facility] Narrative: I reviewed patient's medical records, patient was discharged 2 days ago from the psychiatric floor. Patient was treated for major depression disorder with psychosis and PTSD. My interpretation of labs: No significant abnormality patient's hematology, chemistry shows a chemistry of 1.49 which is at baseline and chronic for the patient. Patient's lithium levels serum 0.4 which is subtherapeutic According to the patient, he did not take his medications today. Patient likely is not compliant with his meds Differential Diagnosis Differential Diagnoses: The differential diagnosis associated with the presentation includes (Anxiety, depression, noncompliance with medication) Admission/Observation Consideration of admission/observation: Escalation of care including admission/observation considered (Patient is under physician observation waiting to be seen by the care team) Lab Data [facility] Lab Attestation statement: I reviewed the patient's lab results. 04/27/25 20:44 04/27/25 20:44 Labs: Lab Results 04/27/25 04/27/25 Range/Units 19:50 20:44 WBC 10.2 (4.8-10.8) X10*3/uL RBC 4.35 L (4.60-5.80) X10*6/uL Hgb 12.6 L (14.0-18.0) g/dl Hct 36.6 L (42.0-52.0) % MCV 84.1 (80.0-98.0) fL MCH 29.0 (27.0-33.0) pg MCHC 34.4 (31.0-36.0) g/dl RDW 13.6 (11.0-16.0) % Plt Count 278 (160-400) X10*3/uL MPV 11.0 (9.4-12.4) fL Immature Gran % (Auto) 0.3 (0.0-0.4) % Neut % (Auto) 67.2 (45-73) % Lymph % (Auto) 20.9 (20-40) % [place] % (Auto) 7.8 (2-11) % Eos % (Auto) 3.1 (0-4) % Baso % (Auto) 0.7 (0-2) % Lymph # (Auto) 2.1 (1.2-4.9) X10*3/uL [place] # (Auto) 0.8 (0.1-1.2) X10*3/uL Eos # (Auto) 0.3 (0.0-0.4) X10*3/uL Baso # (Auto) 0.1 (0.0-0.2) X10*3/uL Abs Immat Gran (auto) 0.03 (0.00-0.03) X10*3/uL Absolute Neuts (auto) 6.8 (2.0-8.3) x10*3/uL Absolute Nucleated RBC 0.000 (0.0-0.012) X10*3/uL Nucleated RBC % (auto) 0.0 (0.0-0.2) /100WBC Sodium 143 (135-145) mmol/L Potassium 3.5 (3.3-5.1) mmol/L Chloride 107 (96-108) mmol/L Carbon Dioxide 27 (22-29) mmol/L Anion Gap 13 (12-20) BUN 20 H (9-16) mg/dL Creatinine 1.49 H (0.5-1.4) mg/dL Estim Creat Clear Calc 47.4 Estimated GFR 49 Random Glucose 65 (60-115) mg/dL Calcium 9.4 (8.4-10.2) mg/dL Total Bilirubin 0.5 (0.0-1.0) mg/dL AST 40 H (5-37) U/L ALT 25 (0-40) U/L Alkaline Phosphatase 68 (39-117) U/L Total Protein 7.6 (6.5-8.0) g/dL Albumin 4.9 (3.5-5.0) g/dL Urine Color Yellow Urine Appearance Clear Urine pH 6.0 (5.0-9.0) Ur Specific [place] 1.015 (1.005-1.025) Urine Protein Trace (Neg-Trace) mg/dL Urine Glucose (UA) Negative (Negative) mg/dL Urine Ketones Negative (Negative) mg/dL Urine Blood Negative (Negative) Urine Nitrite Negative (Negative) Ur Leukocyte Esterase Trace H (Negative) Urine RBC 0-2 (0-2) /HPF Urine WBC 0-5 (0-5) /HPF Ur Squamous Epith Cells 0-2 (0-2) /HPF Urine Bacteria None Seen (None Seen) Hyaline Casts 0-2 (0-2) /LPF Urine Opiates Screen Not Detected (Not Detect) Ur Buprenorphine Scrn Not Detected (Not Detect) ng/mL Ur Oxycodone Screen Not Detected (Not Detect) ng/mL Urine Methadone Screen Not Detected (Not Detect) ng/mL Urine Fentanyl Screen Not Detected (Not Detect) Ur Barbiturates Screen Not Detected (Not Detect) Ur Phencyclidine Scrn Not Detected (Not Detect) Ur Amphetamines Screen Not Detected (Not Detect) U Benzodiazepines Scrn POSITIVE H (Not Detect) [place] 0.46 L (0.60-1.20) mmol/L Urine Cocaine Screen POSITIVE H (Not Detect) U Marijuana (THC) Screen Not Detected (Not Detect) Ethyl Alcohol < 10 mg/dL Critical Care Time Critical Care Time Critical Care Time: Yes Total Critical Care Time: 35 Attestation: I have personally provided critical care time. Time includes review of lab data, radiology results, discussion with consultants, and monitoring for potential decompensation. Intervention performed as documented. Discharge Plan Discharge Clinical Impression: Depression Qualifiers: Depression Type: unspecified Qualified Code(s): F32.A - Depression, unspecified Patient Disposition: Home, Self-Care Instructions: Depression (ED) Prescriptions: No Action meloxicam 15 mg Tablet 15 mg PO DAILY melatonin 3 mg Tablet 6 mg PO BEDTIME amlodipine 10 mg Tablet 10 mg PO DAILY sertraline 50 mg Tablet 50 mg PO DAILY fenofibrate 50 mg Capsule 145 mg PO DAILY doxepin 50 mg Capsule 50 mg PO BEDTIME lithium carbonate 150 mg Capsule 150 mg PO QNOON hydrocortisone 1 % Cream 1 appl TOPICAL BID PRN (Reason: Itching) clonazepam 2 mg Tablet 2 mg PO BID lithium carbonate 300 mg Tablet 600 mg PO BEDTIME sertraline 100 mg tablet 100 mg PO DAILY lurasidone 40 mg tablet 40 mg PO BEDTIME Patient Comments: gabapentin 800 mg tablet 800 mg PO TID Referrals: [place] [Primary Care Provider, Primary Care] Interventions: [place]-Suicide Risk Severity Scale Last Done: 04/27/25 20:18 Print Language: Kinyarwanda
--- NOTE | 2025-04-28 01:32 | PC.NURSE ---
Med rec completed using rx bottles pt brought in. Unable to verify sertraline as there are two different scripts from two different providers- order written by Dr. James for 50mg daily filled 04/25 and order written by Benjamin Broderick for 100mg filled 04/15/25
--- NOTE | 2025-04-28 02:25 | PC.NURSE ---
Pt medicated as per OCT. Plan of care ongoing
[2025-04-28 06:17] VITALS: BP 128/80; PULSE 69; RESP 17; TEMP 36.4; O2SAT 98
--- NOTE | 2025-04-28 06:48 | PC.NURSE ---
Assumed care of patient at 0645, patient appears to be in no apparent distress this am, calm and cooperative, offering no complaints to this RN. Continue plan of care for [facility] bedsearch
[2025-04-28 09:14] VITALS: BP 125/84; PULSE 78; RESP 14; TEMP 36.3; O2SAT 100
--- NOTE | 2025-04-28 09:24 | MHC.CARE ---
T/w spoke jamil Mccarthy at [facility] at 0920, referral received, is in review and they will call back w updates/ questions.
[2025-04-28 10:50] VITALS: BP 125/84; PULSE 78; RESP 14; TEMP 36.3; O2SAT 100
== END 2025-04-28 11:36 | disposition home or self-care (01) ==
PROVIDERS: Emergency Provider Emergency Medicine; PCP Dentist General Practice
DX: F33.1 Major depressive disorder, recurrent, moderate (principal); R45.851 Suicidal ideations; Z51.81 Encounter for therapeutic drug level monitoring; Z79.899 Other long term (current) drug therapy
CPT/HCPCS: 36415; 80053; 80178; 80307; 81001; 85025; 99285; S9485

== ENCOUNTER 2025-04-29 18:09 | Inpatient (IN) | payer OTHER, SELFPAY ==
--- OUTSIDE RECORDS SUMMARY | 2025-04-26 17:21 | XMS_ITS | Encounter Summary ---
Author Organization [facility] Address [address] [place] [address] Care Team Providers Care Baggageman Name Role Phone Physician, No Pcp Primary Care Provider Unavaila ble Reason for Visit * Reason Comments Suicidal Encounter Details Date Type Department Care Team (Late st Contact Info) Description 04/26/2025 5:21 PM EDT - 04/26/2025 9:[address] [facility] [address] [place] [phone] Jesse Baltazar MD [address] [place] [address] Ezequiel Van MD [address] [place] [address] Suicidal ideation (Primary Dx); Current episode of [...] Mental Health Crisis: Getting Help: General Info (Gabonese) documented in this encounter Medications at Time of Discharge amLODIPine (NORVASC) 5 mg tablet Take 2 tablets (10 mg total) by mouth 1 (one) time each day. clonazePAM (KlonoPIN) 2 mg tablet Take 1 tablet (2 mg total) by mouth 2 (two) times a day. diclofenac (VOLTAREN) 1 % topical gel Apply 2 g topically 2 (two) times a day. doxepin (SINEquan) [...] by mouth 1 (one) time each day. 300 mg qam and 600 mg qhs lithium 600 mg capsule Take 1 capsule (600 mg total) by mouth at bedtime. lurasidone (LATUDA) 40 mg tablet Take 1 tablet (40 mg total) by mouth at bedtime. melatonin 3 mg tablet Take 2 tablets [...] by mouth 1 (one) time each day. 5 lurasidone (LATUDA) 60 mg tablet Take 1 tablet (60 mg total) by mouth at bedtime. 5 documented as of this encounter Discharge Disposition Disposition Code Departure Means Destination Comment s Home or Self [facility] Pt provided discharge instructions, plan of care, pt verbalizes understanding.stefany booked for pt transport home documented in this encounter Progress Notes * Amaris Pino RN - 04/26/2025 7:30 PM EDT SUICIDE PRECAUTIONS, SECURITY AT WATCH * Maylin Santiago RN - 04/26/2025 5:21 PM EDT Pt to ED by ambulance from [facility] after denying respite care. Pt states SI [...] that he did not like so refused, Khadar endorsed SI, and now presents to the ED for reevaluation. Previous History Past Medical History: Diagnosis Date Bipolar 2 disorder (CMS/HCC V24, CMS/[facility] V28) per emr DJD (degenerative joint disease) [...] Procedure Abnormality Status --------- ------ CBC auto differential[[id number]] Please view results for these tests on [...] in time range) ED Course as of 04/26/251755e Apr 26, 20251746 I, Dr. Brice Baltazar, signed [...] 5:18 PM EDT ED Course as of 04/26/252254e Apr 26, 2025 1747 I, Dr. Brice Baltazar, signed this patient [...] PM EDTAssociated Order(s): IP CONSULT TO COLLEGE OR UNIVERSITY REGISTRAR Images from the original note were not included. Behavioral Health Services - Crisis Assessment Important times Time of arrival: 04/26/25 1711 Time of referral: 04/26/25 173 Time of readiness: 04/26/25 190 Time assessment started: 04/26/251927 Time of disposition: 04/26/252027 Location: [facility] ER Consulted case with: Jocelyn Jordan LCSW [...] statement with out a plan. Patient is Gabonese speaking and was assessed with the aid of a patient logging tractor operator. Patient reports that yesterday he felt depressed and anxious because he is not living up to his full potential. Patient reports that he was not clinically diagnose with depression and he is not currently on any medication for depression. Patient reports that he has a 7 year old daughter who live in [place]. Patient reports that he would like to find a program that is right for him so that he could better his life and be able to help others. Based on a co-response report from [facility], the patient is being assisted with [facility] [...] he feels safe leaving andwill connect with [facility]. History of Present Illness: Terence is a 54 y.o. male with Chief Complaint Patient presents with Suicidal Social/Educational History: Guardian - if Yes, provide contact information: n/a [place] Status: n/a State Agency Involvement: [facility]'s Order: n/a Marital Status: Alternative Placement Details: none reported Living Situation for patient: Homeless Currently in the process of getting placement with [facility] through [facility]. Household Members/Age: n/a Friendships/Family/Social Peer Support/Relationships: none reported Highest level of education: Patient reports that he graduated high school and completed 1 year of college Comments (Include Learning Needs): none reported Occupation: none reported. Patient supports himself financially via [facility] Employment/Extracurricular Activities/Hobbies: Unemployed Limitations of Daily [...] Denied Protective Factors: Patient is connected to [facility] and is receiving help through the agency Patient has a therapist Patient has possible [facility] placement for 04/27 Patient is help-seeking Risk Factors: Patient endorse SI for secondary gain Patient is depressed Patient has limited family ties Patient is unhoused Suicide Risk: Based on patient's history and current presentation, their level of risk for intentional lethal harm is considered Low Safety Plan Completed: no Patient will follow up with [facility] Interventions: Safety assessment, Motivational interviewing, active listening, [...] pleasure to assist Terence Anthony here at [facility]. This report is written and finalized by: Kari Sauceda LCSW Behavioral Health Specialist [facility] (Tel): [phone] / : [phone] documented in this encounter Miscellaneous Notes * ED Bed Hold Note - Adalgisa Velasquez RN - 04/26/2025 5:21 PM EDT Bed: MN-C Expected date: 04/26/25 Expected time: Means of arrival: Comments: AMR: 73M, Gabonese Speaking, SI Post eval homeless denied respite [...] CBC auto differential (04/26/2025 6:08 PM EDT) WBC 11.3(H) 4.8 - 10.8 K/mcL LAB HEMETOLOGY METHOD 04/26/2025 6:30 PM EDT [facility] RBC 4.40(L) 4.50 - 5.50 M/mcL LAB HEMETOLOGY METHOD 04/26/2025 6:30 PM EDT [facility] Hemoglobin 12.5(L) 13.5 - 17.5 g/dL LAB HEMETOLOGY METHOD 04/26/2025 6:30 PM EDT [facility] Hematocrit 38.4(L) 42.0 - 54.0 % LAB HEMETOLOGY METHOD 04/26/2025 6:30 PM EDT [facility] MCV 86.7 79.0 - 98.0 FL LAB HEMETOLOGY METHOD 04/26/2025 6:30 PM EDT [facility] MCH 28.2 27.0 - 32.0 pcg LAB HEMETOLOGY METHOD 04/26/2025 6:30 PM EDT [facility] MCHC 32.6 32.0 - 37.0 g/dL LAB HEMETOLOGY METHOD 04/26/2025 6:30 PM EDT [facility] RDW 13.6 11.0 - 15.0 % LAB HEMETOLOGY METHOD 04/26/2025 6:30 PM EDT [facility] Platelets 292 130 - 400 K/mcL LAB HEMETOLOGY METHOD 04/26/2025 6:30 PM EDT [facility] MPV 11.3(H) 7.0 - 11.0 FL LAB HEMETOLOGY METHOD 04/26/2025 6:30 PM EDT [facility] NRBC 0.0 <1.0 % LAB HEMETOLOGY METHOD 04/26/2025 6:30 PM EDT [facility] NRBC Absolute 0.00 <0.10 K/mcL LAB HEMETOLOGY METHOD 04/26/2025 6:30 [facility] Neutrophils Relative 74.1 % LAB HEMETOLOGY METHOD 04/26/2025 6:30 PM [facility] Lymphocytes Relative 16.2 % LAB HEMETOLOGY METHOD 04/26/2025 6:30 PM [facility] Monocytes Relative 6.7 % LAB HEMETOLOGY METHOD 04/26/2025 6:30 PM [facility] Eosinophils Relative 2.0 % LAB HEMETOLOGY METHOD 04/26/2025 6:30 PM [facility] Basophils Relative 0.6 % LAB HEMETOLOGY METHOD 04/26/2025 6:30 PM [facility] Immature Granulocytes Relative 0.4 % LAB HEMETOLOGY METHOD 04/26/2025 6:30 PM [facility] Neutrophils Absolute 8.34(H) 1.50 - 7.00 K/mcL LAB HEMETOLOGY METHOD 04/26/2025 6:30 PM [facility] Lymphocytes Absolute 1.82 1.00 - 5.00 K/mcL LAB HEMETOLOGY METHOD 04/26/2025 6:30 PM [facility] Monocytes Absolute 0.75 0.20 - 1.00 K/mcL LAB HEMETOLOGY METHOD 04/26/2025 6:30 PM [facility] Eosinophils Absolute 0.22 0.00 - 0.50 K/mcL LAB HEMETOLOGY METHOD 04/26/2025 6:30 PM [facility] Basophils Absolute 0.07 0.00 - 0.20 K/mcL LAB HEMETOLOGY METHOD 04/26/2025 6:30 PM [facility] Immature Granulocytes Absolute 0.05(H) 0.00 - 0.03 K/mcL LAB HEMETOLOGY METHOD 04/26/2025 6:30 PM EDT [facility] Blood Venous blood specimen / Unknown Venipuncture / Unknown 04/26/2025 6:08 PM EDT 04/26/2025 6:22 PM EDT us Jesse Baltazar MD LAB BLOOD ORDERABLES Final Resu lt Performing Organization Address [facility] Co de Phone Number [facility] [address] [place] [address], [place] [phone] * (ABNORMAL) Salicylate level (04/26/2025 6:08 PM EDT) Salicylate Level <1.7(L) 2.0 - 29.0 mg/dL LAB CHEMISTRY METHOD 04/26/2025 6:54 PM EDT [facility] Blood Venous blood specimen / Unknown Venipuncture / Unknown 04/26/2025 6:08 PM EDT 04/26/2025 6:22 PM EDT us Jesse Baltazar MD LAB BLOOD ORDERABLES Final Resu lt Performing Organization Address [facility] de Phone Number [facility] [address] [place] [address], [place] [phone] * (ABNORMAL) Acetaminophen level (04/26/2025 6:08 PM EDT) Acetaminophen Level <2.0(L) 10.0 - 30.0 mcg/mL LAB CHEMISTRY METHOD 04/26/2025 6:58 PM EDT [facility] Blood Venous blood specimen / Unknown Venipuncture / Unknown 04/26/2025 6:08 PM EDT 04/26/2025 6:22 PM EDT us Jesse Baltazar MD LAB BLOOD ORDERABLES Final Resu lt Performing Organization Address [facility]/ZIP Co de Phone Number [facility] [address] [place] [address], * Ethanol (04/26/2025 6:08 PM EDT) Ethanol Level 3 0 - 10 mg/dL LAB CHEMISTRY METHOD 04/26/2025 6:56 PM EDT [facility] Blood Venous blood specimen / Unknown Venipuncture / Unknown 04/26/2025 6:08 PM EDT 04/26/2025 6:22 PM EDT Jesse Baltazar MD LAB BLOOD ORDERABLES Final Resu lt Performing Organization Address [facility]/ZIP Co de Phone Number [facility] [address] [place] [address], [place] [phone] * (ABNORMAL) Comprehensive metabolic panel (04/26/2025 6:08 PM EDT) Pathologist [facility] Sodium 136 133 - 145 mmol/L LAB CHEMISTRY METHOD 04/26/2025 6:58 PM EDT [facility] Potassium 3.6 3.5 - 5.5 mmol/L LAB CHEMISTRY METHOD 04/26/2025 6:58 PM T [facility] Chloride 102 96 - 110 mmol/L LAB CHEMISTRY METHOD 04/26/2025 6:58 PM EDT [facility] CO2 30 21 - 32 mmol/L LAB CHEMISTRY METHOD 04/26/2025 6:58 PM EDT [facility] Anion Gap 4 3 - 11 LAB CHEMISTRY METHOD 04/26/2025 6:58 PM [facility] Glucose 85 70 - 100 mg/dL LAB CHEMISTRY METHOD 04/26/2025 6:58 PM EDT [facility] BUN 22 5 - 25 mg/dL LAB CHEMISTRY METHOD 04/26/2025 6:58 PM EDT [facility] Creatinine 1.69(H) 0.70 - 1.30 mg/dL LAB CHEMISTRY METHOD 04/26/2025 6:58 PM [facility] eGFR 48(L) >=60 mL/min/1. 73m2 LAB CHEMISTRY METHOD 04/26/2025 6:58 PM [facility] Comment:Calculation based on the Chronic Kidney Disease Epidemiology Collaboration (CKD-EPI) equation refit without adjustment for race. BUN/Creatinine Ratio 13.0 LAB CHEMISTRY METHOD 04/26/2025 6:58 PM [facility] Calcium 9.3 8.5 - 10.5 mg/dL LAB CHEMISTRY METHOD 04/26/2025 6:58 PM [facility] AST (SGOT) 44(H) 10 - 42 unit/L LAB CHEMISTRY METHOD 04/26/2025 6:58 PM [facility] ALT (SGPT) 25 10 - 60 unit/L LAB CHEMISTRY METHOD 04/26/2025 6:58 PM [facility] Alkaline Phosphatase 65 42 - 121 unit/L LAB CHEMISTRY METHOD 04/26/2025 6:58 PM [facility] Total Protein 7.6 6.0 - 8.0 g/dL LAB CHEMISTRY METHOD 04/26/2025 6:58 PM [facility] Albumin 4.8 3.2 - 5.0 g/dL LAB CHEMISTRY METHOD 04/26/2025 6:58 PM [facility] Total Bilirubin 0.7 0.0 - 1.4 mg/dL LAB CHEMISTRY METHOD 04/26/2025 6:58 PM [facility] Blood Venous blood specimen / Unknown Venipuncture / Unknown 04/26/2025 6:08 PM EDT 04/26/2025 6:22 PM EDT us Jesse Baltazar MD LAB BLOOD ORDERABLES Final Resu lt [facility] [address] [place] [address], [place] [phone] * Methadone, urine (04/26/2025 5:50 PM EDT) Methadone Screen, Urine Negative Negative LAB CHEMISTRY METHOD 04/26/2025 6:55 PM EDT [facility] Comment: Assay cutoff 300 ng/mL Semi-quantitative [...] ORDERABLES Final Resu lt Performing Organization Address [facility] de Phone Number [facility] [address] [place] [address], [place] [phone] * Phencyclidine, urine (04/26/2025 5:50 PM EDT) PCP Scrn, Ur Negative Negative LAB CHEMISTRY METHOD 04/26/2025 6:59 PM EDT [facility] Comment: Assay cutoff 25 ng/mL Semi-quantitative [...] ORDERABLES Final Resu lt Performing Organization Address [facility]/ZIP Co de Phone Number [facility] [address] [place] [address], [place] [phone] * Buprenorphine screen, urine (04/26/2025 5:50 PM EDT) Pathologist [facility] Buprenorphine Screen Urine Negative Negative LAB CHEMISTRY METHOD 04/26/2025 6:55 PM EDT [facility] Urine Urine specimen obtained by clean catch procedure / Unknown Non-blood Collection / Unknown 04/26/2025 5:50 PM EDT 04/26/2025 6:23 PM EDT Narrative [facility] - 04/26/2025 6:55 PM EDT Assay cutoff 5 ng/mL Semi-quantitative assay for screening purposes only. Unconfirmed screening result should not be used for non-medical purposes. *ALTERNATE METHOD CONFIRMATION DONE UPON REQUEST ONLY* us Jesse Baltazar MD LAB URINE ORDERABLES Final Resu lt [facility] [address] [place] [address], * (ABNORMAL) Drug abuse screen 8a panel, urine (04/26/2025 5:50 PM EDT) [facility] Amphetamine Screen, Ur Negative Negative LAB CHEMISTRY METHOD 6:55 PM EDT [facility] Comment:Certain OTC medicati ons containing ephedrine, phenylephrine, pseudoephedrine and phenylpropanolamine can cause false positive results. Barbiturate Screen, Ur Negative Negative LAB CHEMISTRY METHOD 5 6:55 PM EDT [facility] Benzodiazepine Screen, Ur Positive(A ) Negative LAB CHEMISTRY METHOD 5 6:55 PM EDT [facility] Cocaine Screen, Ur Negative Negative LAB CHEMISTRY METHOD 5 6:55 PM EDT [facility] Opiate Screen, Ur Negative Negative LAB CHEMISTRY METHOD 5 6:55 PM EDT [facility] Cannabinoid (THC) Screen, Ur Negative Negative LAB CHEMISTRY METHOD 5 6:55 PM EDT [facility] Comment:Specimens from patie nts taking pantoprazole sodium (Protonix) have been shown to produce false positive results. Oxycodone Screen, Ur Negative Negative LAB CHEMISTRY METHOD 5 6:55 PM EDT [facility] Fentanyl, Ur Negative Negative LAB CHEMISTRY METHOD 5 6:55 PM EDT [facility] Urine Urine specimen obtained by clean catch procedure / Unknown Non-blood Collection / Unknown 04/26/2025 5:50 PM EDT 04/26/2025 6:23 PM EDT Narrative [facility] - 04/26/2025 6:55 PM EDT Assay [...] MD LAB URINE ORDERABLES Final Resu lt [facility] [address] [place] [address], documented in this encounter Visit Diagnoses Diagnosis [...] 1 tablet (40 mg total) by mouth at bedtime. added in this encounter Active and Recently [...] in this encounter Orders Medications Ordered That Uvadlo ht Not Have Been Administered Count Last Ordered Date First Ordered Date aluminum-magnesium hydroxide -simethicone (MAALOX) 200-200-20 mg/5 mL suspension 30 mL 1 04/26/2025 melatonin tablet 6 mg 1 04/26/2025 ondansetron ODT (ZOFRAN-ODT) disintegrating tablet 4 mg 1 04/26/2025 Consult Count Last Ordered Date First Orde red Date IP CONSULT TO COLLEGE OR UNIVERSITY REGISTRAR 1 04/26/2025 documented in this encounter Care Teams Baggageman Relationship Specialty Start Date End Date Physician, No Pcp PCP - General 01/03/25 documented as of this encounter
--- OUTSIDE RECORDS SUMMARY | 2025-04-27 05:00 | XMS_ITS ---
Author Organization [facility] Address [address] [place] [address] Care Team Providers Care Biological Chemist Name Role Phone [facility] Provi isma [phone] Karol Carmella Unavailable [phone] REASON FOR VISIT New Intake Encounters Encounter Location Date Provider Diagnosis [facility] [address] [place], [place] [phone] 04/27/2025 Carmella Roberson Plan Of Treatment No Information Progress Notes * Terence MANDOB:1970 ([age] yo M)Acc No.[id number]:04/27/2025 Case Management Patient: Terence GRAY Provider: Jesus Roberson :1970 A ge:54 Y S ex:Male Date:04/27/2025 Address:[address] [place], [place] [id number] Pcp:[facility] nter Subjective: * Chief Complaints: * [...] Generated for Satinder de anda/Sneha/Willam on: 0 04/29/2025 06:15 PM EDT History and Physical Notes * [...]
--- OUTSIDE RECORDS SUMMARY | 2025-04-28 16:00 | XMS_ITS | Encounter Summary ---
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 stimulating hormone (04/28/2025 6:21 PM EDT) TSH 4.43(H) 0.40 - 4.00 mcIU/mL LAB CHEMISTRY METHOD 04/28/2025 8:07 PM EDT [facility] Blood Venous blood specimen / Unknown Venipuncture / Unknown 04/28/2025 6:21 PM EDT 04/28/2025 6:41 PM EDT us Dorinda Soto MD LAB BLOOD ORDERABLES Final Result Performing Organization Address [facility]/ZIP Co de Phone Number [facility] [address] [place] [address], [place] [phone] * (ABNORMAL) Comprehensive metabolic panel (04/28/2025 6:21 PM EDT) Sodium 140 133 - 145 mmol/L LAB CHEMISTRY METHOD 04/28/2025 7:22 PM [facility] Potassium 3.6 3.5 - 5.5 mmol/L LAB CHEMISTRY METHOD 04/28/2025 7:22 PM [facility] Chloride 105 96 - 110 mmol/L LAB CHEMISTRY METHOD 04/28/2025 7:22 PM [facility] CO2 30 21 - 32 mmol/L LAB CHEMISTRY METHOD 04/28/2025 7:22 PM [facility] Anion Gap 5 3 - 11 LAB CHEMISTRY METHOD 04/28/2025 7:22 PM [facility] Glucose 94 70 - 100 mg/dL LAB CHEMISTRY METHOD 04/28/2025 7:22 PM [facility] BUN 15 5 - 25 mg/dL LAB CHEMISTRY METHOD 04/28/2025 7:22 PM [facility] Creatinine 1.58(H) 0.70 - 1.30 mg/dL LAB CHEMISTRY METHOD 04/28/2025 7:22 PM [facility] eGFR 52(L) >=60 mL/min/1. 73m2 LAB CHEMISTRY METHOD 04/28/2025 7:22 PM [facility] Comment:Calculation based on the Chronic Kidney Disease Epidemiology Collaboration (CKD-EPI) equation refit without adjustment for race. BUN/Creatinine Ratio 9.5 LAB CHEMISTRY METHOD 04/28/2025 7:22 PM [facility] Calcium 9.6 8.5 - 10.5 mg/dL LAB CHEMISTRY METHOD 04/28/2025 7:22 PM [facility] AST (SGOT) 28 10 - 42 unit/L LAB CHEMISTRY METHOD 04/28/2025 7:22 PM [facility] ALT (SGPT) 29 10 - 60 unit/L LAB CHEMISTRY METHOD 04/28/2025 7:22 PM EDT [facility] Alkaline Phosphatase 73 42 - 121 unit/L LAB CHEMISTRY METHOD 04/28/2025 7:22 PM EDT [facility] Total Protein 7.4 6.0 - 8.0 g/dL LAB CHEMISTRY METHOD 04/28/2025 7:22 PM EDT [facility] Albumin 4.3 3.2 - 5.0 g/dL LAB CHEMISTRY METHOD 04/28/2025 7:22 PM EDT [facility] Total Bilirubin 0.5 0.0 - 1.4 mg/dL LAB CHEMISTRY METHOD 04/28/2025 7:22 PM EDT [facility] Blood Venous blood specimen / Unknown Venipuncture / Unknown 04/28/2025 6:21 PM EDT 04/28/2025 6:41 PM EDT us Dorinda Soto MD LAB BLOOD ORDERABLES Final Result [facility] [address] [place] [address], documented in this encounter Visit Diagnoses Diagnosis Depression, unspecified depression type- Primary Suicidal ideation documented in this encounter Discontinued Medications Medication Sig Discontinue Reason Start Date End Da te lurasidone (LATUDA) 60 mg tablet Take 1 tablet (60 mg total) by mouth at bedtime. Entered in Error 04/29/2025 cloNIDine (CATAPRES) 0.1 mg tablet Take 1 tablet (0.1 mg total) by mouth 1 (one) time each day. Entered in Error 04/29/2025 documented as of this encounter Orders Diet Count Last Ordered Date First Orde red Date ADULT DIET 1 04/28/2025 Consult Count Last Ordered Date First Orde red Date IP CONSULT TO GAMBRELER 1 04/29/2025 Precaution Count Last Ordered Date First Orde red Date SUICIDE PRECAUTIONS 1 04/28/2025 Privilege Level Count Last Ordered Date First O rdered Date PATIENT LAND DEVELOPER 1:1 1 04/28/2025 documented in this encounter Care Teams E/M Engineer Relationship Specialty Start Date End Date Physician, No Pcp PCP - General 01/03/25 documented as of this encounter
--- OUTSIDE RECORDS SUMMARY | 2025-04-29 18:15 | XMS_ITS | Clinical Summary ---
Author Organization [facility] Address [address] [place] [address] Care Team Providers Care Utilization Management Rn Name Role Phone Unavailable Primary Care Provider Unavailabl e Encounters Date Type Department Care Team Description 02/22/2025 Population Health Risk Score [facility] ([facility]) Department [address] [facility] [facility] [address] [place] [address] Provider, Population Health Generic from [...]
--- OUTSIDE RECORDS SUMMARY | 2025-04-29 18:15 | XMS_ITS | Clinical Summary ---
Author Organization [facility] Address [address] [place] [address] Phone Care Team Providers Care Protective Signal Repairer Helper Name Role Phone Physician, No Pcp Primary [...] mg total) by mouth at bedtime. Active doxepin (SINEquan) 50 mg capsule Take 1 capsule (50 mg total) by mouth at bedtime. Active lithium 300 mg capsule Take 1 capsule (300 mg total) by mouth 1 (one) time each day. 300 mg qam and 600 mg qhs Active lurasidone (LATUDA) 40 mg tablet Take 1 tablet (40 mg total) by mouth at bedtime. Active cloNIDine (CATAPRES) 0.1 mg tablet Take 1 tablet (0.1 mg total) by mouth 1 (one) time each day. 04/29/20 Discontinu ed(Entered in Error) lurasidone (LATUDA) 60 mg tablet Take 1 tablet (60 mg total) by mouth at bedtime. 04/29/20 Discontinu ed(Entered in Error) Encounters Date Type Department Care Team Description 04/28/2025 4:00 PM EDT - Present Emergency [facility] Emergency [address] [place] [phone] Dorinda Soto MD Wire, Jessica, MD Goebel, Mathew, MD Depression, unspecified depression type (Primary Dx); Suicidal ideation 04/26/2025 5:21 PM EDT - 04/26/2025 9:29 PM EDT [facility] Emergency [address] [place] [phone] Jesse Baltazar MD Damri, Kevin Nicholas, MD Suicidal ideation (Primary Dx); Current episode of major depressive disorder without prior episode, unspecified depression episode severity; Anxiety disorder, unspecified type Discharge Disposition: Home or Self Care 02/16/2025 Lab Requisition [facility] Lab [address] [place] [address] Delores Thomson FNP [facility] [place] [facility] therapy 02/16/2025 Lab Requisition [facility] Lab [address] [place] [address] Albertina Garcia NP Other buttermaker helper (current) drug therapy 02/13/2025 9:24 PM EDT - 02/15/2025 2:00 PM EDT [facility] Emergency [address] [place] [phone] Gloria Jackson DO Landry, Jonathan P, MD Suicidal ideation (Primary Dx); Visual hallucination; Polysubstance abuse (CMS/[facility] V24, CMS/[facility] V28) Discharge Disposition: Psychiatric Hospital from [...] Mass Index 34.33 04/28/2025 4:39 PM EDT Plan of Treatment Health Maintenance [...] 2025 04/19/2021 Hypertension/CHF/CAD Annual BMP Blood Test 04/28/2026 04/28/2025, 04/26/2025, 04/01/2025, Additional history exists Cholesterol Screening (Lipid Panel) [...] patient's age to complete this topic Procedures * The patient is currently admitted. [...] AUTO DIFFERENTIAL STAT 04/28/2025 6:21 PM EDT LITHIUM LEVEL STAT 04/28/2025 6:21 PM EDT SALICYLATE LEVEL STAT 04/28/2025 6:21 PM EDT ETHANOL STAT 04/28/2025 6:21 PM EDT ACETAMINOPHEN LEVEL STAT 04/28/2025 6 :21 PM EDT THYROID STIMULATING HORMONE STAT 04/28/2025 6:21 PM EDT COMPREHENSIVE METABOLIC PANEL STAT 04/28/2025 6:21 PM EDT CBC AND DIFFERENTIAL STAT 04/28/2025 6:21 PM EDT CBC WITH AUTO DIFFERENTIAL STAT 04/26/2025 6:08 [...] PANEL Routine 02/16/2025 7:00 AM EDT [facility] [place] [facility] HEMOGLOBIN A1C Routine 02/16/2025 7:00 AM EDT [facility] [place] [facility] LIPID PANEL WITH REFLEX TO DIRECT LDL Routine 02/16/2025 7:00 AM EDT [facility] [place] [facility] drug [facility] GLUCOSE, RANDOM Routine 02/16/2025 7:00 AM EDT [facility] [place] [facility] drug therapy CT HEAD WO CONTRAST [...] from Last 3 Months Results * (ABNORMAL) Drug abuse screen 8a panel, urine (04/28/2025 11:46 PM EDT) Only the most recent of3 resultswithin the time period is included. [facility] Amphetamine Screen, Ur Negative Negative LAB CHEMISTRY METHOD 3:17 AM [facility] LAB Comment:Certain OTC medicati ons containing ephedrine, phenylephrine, pseudoephedrine and phenylpropanolamine can cause false positive results. Barbiturate Screen, Ur Negative Negative LAB CHEMISTRY METHOD 5 3:17 AM [facility] Benzodiazepine Screen, Ur Positive(A ) Negative LAB CHEMISTRY METHOD 5 3:17 AM [facility] Cocaine Screen, Ur Positive(A ) Negative LAB CHEMISTRY METHOD 5 3:17 AM [facility] Opiate Screen, Ur Negative Negative LAB CHEMISTRY METHOD 5 3:17 AM [facility] Cannabinoid (THC) Screen, Ur Negative Negative LAB CHEMISTRY METHOD 3:17 AM [facility] Comment:Specimens from patie nts taking pantoprazole sodium (Protonix) have been shown to produce false positive results. Oxycodone Screen, Ur Negative Negative LAB CHEMISTRY METHOD 5 3:17 AM [facility] Fentanyl, Ur Negative Negative LAB CHEMISTRY METHOD 5 3:17 AM [facility] Urine Urine specimen obtained by clean catch procedure / Unknown Non-blood Collection / Unknown 04/28/2025 11:46 PM EDT 04/29/2025 12:04 AM EDT [facility] LAB - 04/29/2025 3:17 AM EDT Assay [...] MD LAB URINE ORDERABLES Final Resul t [facility] [address] [place] [address], [place] [phone] * 12-Lead ECG (04/28/2025 8:35 PM EDT) Only the most recent of2 resultswithin the time period is included. Pathologist [facility] Ventricular Rate ECG 80 BPM GEMUSE Atrial Rate 80 BPM GEMUSE P-R Interval 154 ms GEMUSE QRS Duration 88 ms GEMUSE Q-T Interval 402 ms GEMUSE QTc 463 ms GEMUSE P Wave [place] 58 degrees GEMUSE R [place] 4 degrees GEMUSE T [place] 15 degrees GEMUSE ECG Interpretation Normal sinus rhythm Nonspecific T wave abnormality Prolonged QT Abnormal ECG When compared with ECG of 14-FEB-2025 03:59, No significant change was found Confirmed by JOHNNY OMER ([id number]) on 04/29/2025 1:23:32 PM GEMUSE 04/28/2025 8:35 PM EDT 04/29/2025 1:23 PM EDT us Dorinda Soto MD ECG ORDERABLES Final Resul t Performing Organization Address [facility] de Phone Number GEMUSE * (ABNORMAL) Urinalysis with reflex microscopic (04/28/2025 8:06 PM EDT) [facility] Specific [place] Urine 1.014 1.003 - 1.030 LAB URINALYSIS - AUTOMATED METHOD 04/28/2025 8:29 PM EDT [facility] pH, Urine 6.5 5.0 - 8.0 pH LAB URINALYSIS - AUTOMATED METHOD 04/28/2025 8:29 PM EDT [facility] Leukocytes, Urine Trace(A) Negative LAB URINALYSIS - AUTOMATED METHOD 04/28/2025 8:29 PM EDT [facility] Nitrite, Urine Negative Negative LAB URINALYSIS - AUTOMATED METHOD 04/28/2025 8:29 PM EDT [facility] Protein, Urine Trace <=Trace mg/dL LAB URINALYSIS - AUTOMATED METHOD 04/28/2025 8:29 PM [facility] Glucose, Urine Negative Negative mg/dL LAB URINALYSIS - AUTOMATED METHOD 04/28/2025 8:29 PM [facility] Ketones, Urine Negative Negative mg/dL LAB URINALYSIS - AUTOMATED METHOD 04/28/2025 8:29 PM [facility] Urobilinogen, Urine 1.0 0.2 - 1.0 mg/dL LAB URINALYSIS - AUTOMATED METHOD 04/28/2025 8:29 PM [facility] Bilirubin, Urine Negative Negative LAB URINALYSIS - AUTOMATED METHOD 04/28/2025 8:29 PM [facility] Blood, Urine Negative Negative LAB URINALYSIS - AUTOMATED METHOD 04/28/2025 8:29 PM [facility] RBC, Urine 0.8 0 - 4 /HPF LAB URINALYSIS - AUTOMATED METHOD 04/28/2025 8:29 PM [facility] WBC, Urine 1.0 0 - 4 /HPF LAB URINALYSIS - AUTOMATED METHOD 04/28/2025 8:29 PM [facility] Squamous Epithelial, Urine 11 0 - 60 /LPF LAB URINALYSIS - AUTOMATED METHOD 04/28/2025 8:29 PM [facility] Bacteria, Urine Negative Negative /HPF LAB URINALYSIS - AUTOMATED METHOD 04/28/2025 8:29 PM [facility] Hyaline Casts, Urine 1.6 0 - 3 /LPF LAB URINALYSIS - AUTOMATED METHOD 04/28/2025 8:29 PM [facility] Urine Urine specimen obtained by clean catch procedure / Unknown Non-blood Collection / Unknown 04/28/2025 8:06 PM EDT 04/28/2025 8:17 PM EDT us Dorinda Soto MD LAB URINE ORDERABLES Final Result [facility] [address] [place] [address], * (ABNORMAL) CBC auto differential (04/28/2025 6:21 PM EDT) Only the most recent of3 resultswithin the time period is included. WBC 9.4 4.8 - 10.8 K/mcL LAB HEMETOLOGY METHOD 04/28/2025 6:52 PM EDT [facility] RBC 4.50 4.50 - 5.50 M/mcL LAB HEMETOLOGY METHOD 04/28/2025 6:52 PM EDT [facility] Hemoglobin 12.8(L) 13.5 - 17.5 g/dL LAB HEMETOLOGY METHOD 04/28/2025 6:52 PM EDT [facility] Hematocrit 39.9(L) 42.0 - 54.0 % LAB HEMETOLOGY METHOD 04/28/2025 6:52 PM EDT [facility] MCV 88.1 79.0 - 98.0 FL LAB HEMETOLOGY METHOD 04/28/2025 6:52 PM EDT [facility] MCH 28.3 27.0 - 32.0 pcg LAB HEMETOLOGY METHOD 04/28/2025 6:52 PM EDT [facility] MCHC 32.1 32.0 - 37.0 g/dL LAB HEMETOLOGY METHOD 04/28/2025 6:52 PM EDT [facility] RDW 13.6 11.0 - 15.0 % LAB HEMETOLOGY METHOD 04/28/2025 6:52 PM EDT [facility] Platelets 274 130 - 400 K/mcL LAB HEMETOLOGY METHOD 04/28/2025 6:52 PM EDT [facility] MPV 11.4(H) 7.0 - 11.0 FL LAB HEMETOLOGY METHOD 04/28/2025 6:52 PM EDT [facility] NRBC 0.0 <1.0 % LAB [facility]EMETOLOGY [facility]/28[facility]25 [facility] NRBC Absolute 0.00 <0.10 K/mcL LAB HEMETOLOGY METHOD 04/28/2025 6:52 PM [facility] Neutrophils Relative 69.4 % LAB HEMETOLOGY METHOD 04/28/2025 6:52 PM [facility] Lymphocytes Relative 20.2 % LAB HEMETOLOGY METHOD 04/28/2025 6:52 PM [facility] Monocytes Relative 6.0 % LAB HEMETOLOGY METHOD 04/28/2025 6:52 PM [facility] Eosinophils Relative 3.2 % LAB HEMETOLOGY METHOD 04/28/2025 6:52 PM [facility] Basophils Relative 0.9 % LAB HEMETOLOGY METHOD 04/28/2025 6:52 PM [facility] Immature Granulocytes Relative 0.3 % LAB HEMETOLOGY METHOD 04/28/2025 6:52 PM [facility] Neutrophils Absolute 6.53 1.50 - 7.00 K/mcL LAB HEMETOLOGY METHOD 04/28/2025 6:52 PM [facility] Lymphocytes Absolute 1.90 1.00 - 5.00 K/mcL LAB HEMETOLOGY METHOD 04/28/2025 6:52 PM [facility] Monocytes Absolute 0.56 0.20 - 1.00 K/mcL LAB HEMETOLOGY METHOD 04/28/2025 6:52 PM [facility] Eosinophils Absolute 0.30 0.00 - 0.50 K/mcL LAB HEMETOLOGY METHOD 04/28/2025 6:52 PM [facility] Basophils Absolute 0.08 0.00 - 0.20 K/mcL LAB HEMETOLOGY METHOD 04/28/2025 6:52 PM EDT [facility] Immature Granulocytes Absolute 0.03 0.00 - 0.03 K/[facility] LAB HEMETOLOGY METHOD 04/28/2025 6:52 PM EDT [facility] Blood Venous blood specimen / Unknown Venipuncture / Unknown 04/28/2025 6:21 PM EDT 04/28/2025 6:41 PM EDT us Dorinda Soto MD LAB BLOOD ORDERABLES Final Result Performing Organization Address City/[facility]/ZIP Co de Phone Number [facility] [address] [place] [address], [place] [phone] * (ABNORMAL) Thyroid stimulating hormone (04/28/2025 6:21 PM EDT) TSH 4.43(H) 0.40 - 4.00 mcIU/mL LAB CHEMISTRY METHOD 04/28/2025 8:07 PM EDT [facility] Blood Venous blood specimen / Unknown Venipuncture / Unknown 04/28/2025 6:21 PM EDT 04/28/2025 6:41 PM EDT us Dorinda Soto MD LAB BLOOD ORDERABLES Final Result Performing Organization Address City/[facility]/ZIP Co de Phone Number [facility] [address] [place] [address], [place] [phone] * Ethanol (04/28/2025 6:21 PM EDT) Only the most recent of3 resultswithin the time period is included. Ethanol Level 6 0 - 10 mg/dL LAB CHEMISTRY METHOD 04/28/2025 7:14 PM EDT [facility] Blood Venous blood specimen / Unknown Venipuncture / Unknown 04/28/2025 6:21 PM EDT 04/28/2025 6:41 PM EDT us Dorinda Soto MD LAB BLOOD ORDERABLES Final Result Performing Organization Address City/[facility]/ZIP Co de Phone Number [facility] [address] [place] [address], [place] [phone] * (ABNORMAL) Acetaminophen level (04/28/2025 6:21 PM EDT) Only the most recent of3 resultswithin the time period is included. Acetaminophen Level <2.0(L) 10.0 - 30.0 mcg/mL LAB CHEMISTRY METHOD 04/28/2025 7:14 PM EDT [facility] Blood Venous blood specimen / Unknown Venipuncture / Unknown 04/28/2025 6:21 PM EDT 04/28/2025 6:41 PM EDT us Dorinda Soto MD LAB BLOOD ORDERABLES Final Result Performing Organization Address [facility] de Phone Number [facility] [address] [place] [address], [place] [phone] * (ABNORMAL) Salicylate level (04/28/2025 6:21 PM EDT) Only the most recent of3 resultswithin the time period is included. Salicylate Level <1.7(L) 2.0 - 29.0 mg/dL LAB CHEMISTRY METHOD 04/28/2025 7:11 PM EDT [facility] Blood Venous blood specimen / Unknown Venipuncture / Unknown 04/28/2025 6:21 PM EDT 04/28/2025 6:41 PM EDT us Dorinda Soto MD LAB BLOOD ORDERABLES Final Result Performing Organization Address City/[facility]/ZIP Co de Phone Number [facility] [address] [place] [address], [place] [phone] * Ericson level (04/28/2025 6:21 PM EDT) Ericson Level 0.6 0.6 - 1.2 mEq/L LAB CHEMISTRY METHOD 04/28/2025 7:22 PM EDT [facility] Blood Venous blood specimen / Unknown Venipuncture / Unknown 04/28/2025 6:21 PM EDT 04/28/2025 6:41 PM EDT us Dorinda Soto MD LAB BLOOD ORDERABLES Final Result [facility] [address] [place] [address], [place] [phone] * (ABNORMAL) Comprehensive metabolic panel (04/28/2025 6:21 PM EDT) Only the most recent of3 resultswithin the time period is included. Pathologist [facility] Sodium 140 133 - 145 mmol/L LAB CHEMISTRY METHOD 04/28/2025 7:22 PM [facility] Potassium 3.6 3.5 - 5.5 mmol/L LAB CHEMISTRY METHOD 04/28/2025 7:22 PM [facility] Chloride 105 96 - 110 mmol/L LAB CHEMISTRY METHOD 04/28/2025 7:22 PM [facility] CO2 30 21 - 32 mmol/L LAB CHEMISTRY METHOD 04/28/2025 7:22 PM [facility] Anion Gap 5 3 - 11 LAB CHEMISTRY METHOD 04/28/2025 7:22 PM [facility] Glucose 94 70 - 100 mg/dL LAB CHEMISTRY METHOD 04/28/2025 7:22 PM [facility] BUN 15 5 - 25 mg/dL LAB CHEMISTRY METHOD 04/28/2025 7:22 PM [facility] Creatinine 1.58(H) 0.70 - 1.30 mg/dL LAB CHEMISTRY METHOD 04/28/2025 7:22 PM [facility] eGFR 52(L) >=60 mL/min/1. 73m2 LAB CHEMISTRY METHOD 04/28/2025 7:22 PM [facility] Comment:Calculation based on the Chronic Kidney Disease Epidemiology Collaboration (CKD-EPI) equation refit without adjustment for race. BUN/Creatinine Ratio 9.5 LAB CHEMISTRY METHOD 04/28/2025 7:22 PM [facility] Calcium 9.6 8.5 - 10.5 mg/dL LAB CHEMISTRY METHOD 04/28/2025 7:22 PM [facility] AST (SGOT) 28 10 - 42 unit/L LAB CHEMISTRY METHOD 04/28/2025 7:22 PM [facility] ALT (SGPT) 29 10 - 60 unit/L LAB CHEMISTRY METHOD 04/28/2025 7:22 PM [facility] Alkaline Phosphatase 73 42 - 121 unit/L LAB CHEMISTRY METHOD 04/28/2025 7:22 PM [facility] Total Protein 7.4 6.0 - 8.0 g/dL LAB CHEMISTRY METHOD 04/28/2025 7:22 PM [facility] Albumin 4.3 3.2 - 5.0 g/dL LAB CHEMISTRY METHOD 04/28/2025 7:22 PM [facility] Total Bilirubin 0.5 0.0 - 1.4 mg/dL LAB CHEMISTRY METHOD 04/28/2025 7:22 PM [facility] Blood Venous blood specimen / Unknown Venipuncture / Unknown 04/28/2025 6:21 PM EDT 04/28/2025 6:41 PM EDT us Dorinda Soto MD LAB BLOOD ORDERABLES Final Result [facility] [address] [place] [address], [place] [phone] * Buprenorphine screen, urine (04/26/2025 5:50 PM [...] ORDERABLES Final Resu lt Performing Organization Address [facility]/ZIP Co de Phone Number [facility] [address] [place] [address], [place] [phone] * Methadone, urine (04/26/2025 5:50 PM EDT) Only the most recent of2 resultswithin the time period is included. [facility] Methadone Screen, Urine Negative Negative LAB CHEMISTRY [...] ORDERABLES Final Resu lt Performing Organization Address [facility]/ZIP Co de Phone Number [facility] [address] [place] [address], [place] [phone] * Phencyclidine, urine (04/26/2025 5:50 PM EDT) [...] lt [facility] [address] [place] [address], * (ABNORMAL) Lipid panel with reflex to direct LDL (02/16/2025 7:00 AM EDT) Pathologist [facility] Cholesterol 190 0 - 200 mg/dL LAB CHEMISTRY METHOD 02/16/2025 12:36 PM EDT [facility] Triglycerides 88 0 - 150 mg/dL LAB CHEMISTRY METHOD 02/16/2025 12:36 PM EDT [facility] HDL 71 >=40 mg/dL LAB CHEMISTRY METHOD 02/16/2025 12:36 PM EDT [facility] LDL Calculated 101(H) 0 - 100 mg/dL LAB CHEMISTRY METHOD 02/16/2025 12:36 PM EDT [facility] VLDL Cholesterol Prieto 17.6 mg/dL LAB CHEMISTRY METHOD 02/16/2025 12:36 PM EDT [facility] Non HDL Chol. (LDL+VLDL) 119 <145 mg/dL LAB CHEMISTRY METHOD 02/16/2025 12:36 PM EDT [facility] Chol/HDL Ratio 2.7 0.0 - 4.4 LAB CHEMISTRY METHOD 02/16/2025 12:36 PM EDT [facility] Blood Venous blood specimen / Unknown Venipuncture / Unknown 02/16/2025 7:00 AM EDT 02/16/2025 10:07 AM EDT us Albertina Moya NP LAB BLOOD ORDERABLES Final Re sult Performing Organization Address [facility] Co de Phone Number [facility] [address] [place] [address], [place] [phone] * Hemoglobin A1c (02/16/2025 7:00 AM EDT) Hemoglobin A1C 5.3 <6.5 % LAB CHEMISTRY METHOD 02/16/2025 12:37 PM EDT [facility] Mean Bld Glu Estim. 105 mg/dL LAB CHEMISTRY METHOD 02/16/2025 12:37 PM EDT [facility] Blood Venous blood specimen / Unknown Venipuncture / Unknown 02/16/2025 7:00 AM EDT 02/16/2025 10:07 AM EDT us Albertina Moya NP LAB BLOOD ORDERABLES Final Re sult Performing Organization Address [facility]/ZIP Co de Phone Number [facility] [address] [place] [address], [place] [phone] * (ABNORMAL) Glucose, random (02/16/2025 7:00 AM EDT) Glucose 49(L) 70 - 100 mg/dL LAB CHEMISTRY METHOD 02/16/2025 12:35 PM EDT [facility] Blood Venous blood specimen / Unknown Venipuncture / Unknown 02/16/2025 7:00 AM EDT 02/16/2025 10:07 AM EDT us Albertina Moya NP LAB BLOOD ORDERABLES Final Re sult [facility] [address] [place] [address], * (ABNORMAL) Basic metabolic panel (02/16/2025 7:00 AM EDT) Only the most recent of2 resultswithin the time period is included. Sodium 138 133 - 145 mmol/L LAB CHEMISTRY METHOD 02/16/2025 12:10 PM [facility] Potassium 5.0 3.5 - 5.5 mmol/L LAB CHEMISTRY METHOD 02/16/2025 12:10 PM [facility] Comment:Hemolysis present Chloride 106 96 - 110 mmol/L LAB CHEMISTRY METHOD 02/16/2025 12:10 PM [facility] CO2 23 21 - 32 mmol/L LAB CHEMISTRY METHOD 02/16/2025 12:10 PM [facility] Anion Gap 9 3 - 11 LAB CHEMISTRY METHOD 02/16/2025 12:10 PM [facility] Glucose 49(L) 70 - 100 mg/dL LAB CHEMISTRY METHOD 02/16/2025 12:10 PM [facility] Comment:Results verified by repeat testing BUN 23 5 - 25 mg/dL LAB CHEMISTRY METHOD 02/16/2025 12:10 PM [facility] Creatinine 1.19 0.70 - 1.30 mg/dL LAB CHEMISTRY METHOD 02/16/2025 12:10 PM [facility] eGFR 73 >=60 mL/min/1. 73m2 LAB CHEMISTRY METHOD 02/16/2025 12:10 PM [facility] Comment:Calculation based on the Chronic Kidney Disease Epidemiology Collaboration (CKD-EPI) equation refit without adjustment for race. BUN/Creatinine Ratio 19.3 LAB CHEMISTRY METHOD 02/16/2025 12:10 PM EDT [facility] Calcium 9.5 8.5 - 10.5 mg/dL LAB CHEMISTRY METHOD 02/16/2025 12:10 PM EDT [facility] Blood Venous blood specimen / Unknown Venipuncture / Unknown 02/16/2025 7:00 AM EDT 02/16/2025 10:04 AM EDT us Delores Thomson BOARDING SPECIALIST LAB BLOOD ORDERABLES Final Result [facility] [address] [place] [address], * CT Head wo Contrast (02/15/2025 12:35 PM EDT) Anatomical Region Laterality Modality Head and Neck Computed Tomogra phy 02/15/2025 1:07 PM EDT Impressions 02/15/2025 1:08 PM EDT No acute findings. -------- FINAL REPORT -------- Dictated By: Price Tyler Dictated Date: 02/15/2025 13:07 ET Assigned Physician: Price Tyler Reviewed and Electronically Signed By: Price Tyler Signed Date: 02/15/2025 13:08 ET Workstation ID: [id number] Transcribed By: Self Edit Transcribed Date: 02/15/2025 [...] Signed Date: 02/15/2025 13:08 ET Workstation ID: [id number] Transcribed By: Self Edit Transcribed Date: 02/15/2025 13:07 ET Michael Moseley MD IMG CT PROCEDURES Final Res ult * ECG-Annotated (02/14/2025) us Provider Onbase ECG ORDERABLES Final Result from Last 3 Months Insurance MEDICAID - [place] Care Teams Protective Signal Repairer Helper Relationship Specialty Start Date End Date Physician, No Pcp PCP - General 01/03/25
--- OUTSIDE RECORDS SUMMARY | 2025-04-29 18:15 | XMS_ITS | Encounter Summary ---
Author Organization [employer] Address [address] [place] [address] Care Team Providers Care Environmental Health Physician Name Role Phone Physician, No Pcp Primary Care Provider Unavaila ble Encounter Details Date Type Department Care Team (Late st Contact Info) Description 02/16/2025 Lab Requisition [facility] - Main Lab [address] [facility] [place] [address] Delores Thomson, [facility] [address] [place] [address] Other long term care pharmacist (current) drug therapy Social History Tobacco Use [...] Assessment Author No 02/13/2025 9:45 PM PERLITAT Mihcael Funes RN * Do you have serious [...] PANEL Routine 02/16/2025 7:00 AM EDT Other long term care pharmacist (current) drug therapy documented in this encounter Results * (ABNORMAL) Basic metabolic panel (02/16/2025 7:00 AM EDT) Sodium 138 133 - 145 mmol/L LAB CHEMISTRY METHOD 02/16/2025 12:10 PM [facility] Potassium 5.0 3.5 - 5.5 mmol/L LAB CHEMISTRY METHOD 02/16/2025 12:10 PM [facility] Comment:Hemolysis present Chloride 106 96 - 110 mmol/L LAB CHEMISTRY METHOD 02/16/2025 12:10 PM [facility] CO2 23 21 - 32 mmol/L LAB CHEMISTRY METHOD 02/16/2025 12:10 PM [facility] Anion Gap 9 3 - 11 LAB CHEMISTRY METHOD 02/16/2025 12:10 PM [facility] Glucose 49(L) 70 - 100 mg/dL LAB CHEMISTRY METHOD 02/16/2025 12:10 PM [facility] Comment:Results verified by repeat testing BUN 23 5 - 25 mg/dL LAB CHEMISTRY METHOD 02/16/2025 12:10 PM [facility] Creatinine 1.19 0.70 - 1.30 mg/dL LAB CHEMISTRY METHOD 02/16/2025 12:10 PM [facility] eGFR 73 >=60 mL/min/1. 73m2 LAB CHEMISTRY METHOD 02/16/2025 12:10 PM EDT [facility] Comment:Calculation based on the Chronic Kidney Disease Epidemiology Collaboration (CKD-EPI) equation refit without adjustment for race. BUN/Creatinine Ratio 19.3 LAB CHEMISTRY METHOD 02/16/2025 12:10 PM EDT [facility] Calcium 9.5 8.5 - 10.5 mg/dL LAB CHEMISTRY METHOD 02/16/2025 12:10 PM EDT [facility] Blood Venous blood specimen / Unknown Venipuncture / Unknown 02/16/2025 7:00 AM EDT 02/16/2025 10:04 AM EDT us Delores Thomson FRAMING INSPECTOR LAB BLOOD ORDERABLES Final Result [facility] [address] [place] [address], documented in this encounter Visit Diagnoses Diagnosis Other long term care pharmacist (current) drug therapy documented in this encounter Care Teams Environmental Health Physician Relationship Specialty Start Date End Date Physician, No Pcp PCP - General 01/03/25 documented as of this encounter
--- OUTSIDE RECORDS SUMMARY | 2025-04-29 18:15 | XMS_ITS | Patient Health Record ---
Author Organization [facility] Address [address] [place] [address] Care Team Providers Care Home Organizer Name Role Phone [facility] Provi isma [phone] Carmella Roberson Unavailable [phone] Reason For Referral No Information Encounters Encounter Location Date Provider Diagnosis [facility] [address] [place] [phone] 04/27/2025 Carmella Roberson Plan Of Treatment No Information Insurance Providers Payer Name Payer Address Payer Phone Subscriber Number Group Number Insured Name Patient Relationship to Insured Coverage Start Date Coverage End Date ID Medicaid Standard [address] [place] [phone] Terence Anthony Self - patient is the insured
--- OUTSIDE RECORDS SUMMARY | 2025-04-29 18:15 | XMS_ITS | Encounter Summary ---
Author Organization [email or web address] Address [address] [place] [address] Care Team Providers Care Classifying Machine Operator Name Role Phone Physician, No Pcp Primary Care Provider Unavaila ble Encounter Details Date Type Department Care Team (Late st Contact Info) Description 02/16/2025 Lab Requisition [facility] - Main Lab [address] [facility] [place] [id number] Albertina Garcia V, FINANCIAL MANAGEMENT [address] [place] [address] Other shelter (current) drug therapy Social History Tobacco Use [...] LDL Routine 02/16/2025 7:00 AM EDT Other laborer marine terminal (current) drug therapy HEMOGLOBIN A1C Routine 02/16/2025 7:00 AM EDT Other shelter (current) drug therapy GLUCOSE, RANDOM Routine 02/16/2025 7:00 AM EDT Other shelter (current) drug therapy documented in this encounter [...] sult [facility] [address] [place] [address], * (ABNORMAL) Lipid panel with reflex to [...] 10:07 AM EDT us Albertina Garcia V, FINANCIAL MANAGEMENT LAB BLOOD ORDERABLES Final Re sult [facility] [address] [place] [address], * (ABNORMAL) Glucose, random (02/16/2025 7:00 AM EDT) Glucose 49(L) 70 - 100 mg/dL LAB CHEMISTRY METHOD 02/16/2025 12:35 PM EDT [facility] Blood Venous blood specimen / Unknown Venipuncture / Unknown 02/16/2025 7:00 AM EDT 02/16/2025 10:07 AM EDT us Albertina Garcia V, FINANCIAL MANAGEMENT LAB BLOOD ORDERABLES Final Re sult [facility] [address] [place] [address], documented in this encounter Visit Diagnoses Diagnosis Other laborer marine terminal (current) drug therapy documented in this encounter Care Teams Classifying Machine Operator Relationship Specialty Start Date End Date Physician, No Pcp PCP - General 01/03/25 documented as of this encounter
[2025-04-29 19:19] VITALS: BMI 35.9
--- NOTE | 2025-04-29 19:21 | PC.NURSE ---
Terence is a french speaking only 54 yo male who was admitted to at 1840 from [facility] on CV with 15 minute checks for treatment of depression and suicidal ideation. Admission was done with an supervisor microwave present. He was recently discharged to [facility], and felt increasingly depressed over the past few days. 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 States he only used one time, and that it worsened existing depression and triggered SI thoughts with plans to burn himself alive. Reports recent breakup and subsequent loss of housing as a trigger for him. He is alert and oriented x 3 (not oriented to time). Mood is depressed with congruent affect. He denies current AVH, and does not appear internally preoccupied. Thought process is linear, he denies any intent to harm himself at this time. Denies sleep changes, appetite changes, or unintentional weight loss. He denies tobacco use, ETOH, or any other substance use. Tox was positive for benzos and cocaine. Pt had been regularly taking clonazepam. Pt has PMH of HTN, and hyperlipidemia. Denies any current physical complaints, and skin check was unremarkable. Pt was cooperative with changeover process and admission. Pt denies any current guardianship, lew order, or HCP.
[2025-04-29 20:00] VITALS: BP 126/76; PULSE 72; RESP 18; TEMP 36.4; O2SAT 99
--- NOTE | 2025-04-30 07:46 | HO.PSYADMNOT ---
HPI Date of Service: 04/30/25 Chief Complaint: SI Sources of Information: patient interviewed, chart reviewed and crisis/core team assessment reviewed Additional Sources of Information: used laborer beam house from video connection HPI Subjective Notes: Conditional Voluntary Healthcare Proxy: No Guardianship: No Medical Problems Affecting Mental Status: Yes (sleep apnea untreated- ) Narrative: 54 yo who was dced 04/25 from [facility] and used drugs 9.23 re presented to er with depression and si - Feels he was dced too soon- and was not feeling good enough , denies going to get medications after dc- Continues to say ppt is divorce 4 months ago and some other losses = though he denied etoh drugsto provider , I 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 Past Psychiatric History: Reports have 5 prior inpatient admissions. Not able to recall facilities or date. Last admission was at [facility] about the months ago. History of [facility] respite and [facility] ACCS . ACCS from 04/08-04/15/25. History [facility] in [place] the months ago. Medical Evaluation Reviewed: Hospitalist Lars Pending [facility] Medical History (Updated 04/30/25 @ 17:34 by Yolanda Yen MD) Severe recurrent major depressive disorder with psychosis HTN (hypertension) PTSD (post-traumatic stress disorder) Depression Suicidal ideation Family History: Mom has Alzheimer and depression. One brother has depression. A brother overdose on Percocet Social History: He is currently -, has 1 17 years old daughter from previous marriage. 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- and hx heroin- Diagnostics Vital Signs (24Hr): Vital Signs - 24 hr 04/29/25 20:00 Temperature 97.5 F Pulse Rate 72 Respiratory Rate 18 Blood Pressure 126/76 Pulse Oximetry 99 Oxygen Delivery Method Room Air BMI result Body Mass Index 35.9 Labs 04/30/25 11:11 Meds/Allergies Meds Home Medications ?Medication ?Instructions ?Recorded ?Confirmed ?Type amlodipine 10 mg tablet 5 mg PO DAILY 04/15/25 04/29/25 History clonazepam 2 mg tablet 2 mg PO BID 04/15/25 04/29/25 History doxepin 50 mg capsule 50 mg PO BEDTIME 04/15/25 04/29/25 History fenofibrate 50 mg capsule 145 mg PO DAILY 04/15/25 04/29/25 History hydrocortisone 1 % topical cream 1 appl topical BID PRN Itching 04/15/25 04/28/25 History lithium carbonate 150 mg capsule 300 mg PO DAILY 04/15/25 04/29/25 History lithium carbonate 300 mg tablet 600 mg PO BEDTIME 04/15/25 04/29/25 History melatonin 3 mg tablet 6 mg PO BEDTIME 04/15/25 04/29/25 History meloxicam 15 mg tablet 15 mg PO DAILY 04/15/25 04/29/25 History sertraline 50 mg tablet 50 mg PO DAILY 04/15/25 04/15/25 History gabapentin 800 mg tablet 800 mg PO TID 04/28/25 04/29/25 History lurasidone 40 mg tablet 60 mg PO BEDTIME 04/28/25 04/29/25 History sertraline 100 mg tablet 150 mg PO DAILY 04/28/25 04/29/25 History gabapentin 800 mg tablet mg 04/29/25 History Allergies Allergies Allergy/AdvReac Type Severity Reaction Status Date / Time No Known Allergies (No Known Allergy Verified 04/27/25 19:47 Allergies*) Mental Status Exam Mental Status Exam Narrative: Difficulty waking up - had to sit up so as not fall asleep = likely also fatty tissue around neck/ENT obstructing breathing on sleep Patient Appearance: Disheveled and Unkempt Patient Orientation: Person, Place, Time and Situation Level of Consciousness: Drowsy Patient Behavior: Cooperative and Poor Eye Contact Behavior Comments: leaving parts out of information, seems vague Mood Description: Sad Affect Description: Constricted Ability to Follow Directions: Fair Speech Pattern: Impoverished (more vague and ? evasive than impoverished, ) Hallucinations: Auditory (not yesterday or today) and Visual (not yesterday or today he reports) Delusions: Not Present Thought Process: Intact and Goal Oriented Thought Content: positive for [place], positive for Poverty of Content, positive for Evasive and positive for Suicidal Ideation (none on unit- I want help getting better ) Depressive Symptoms: Increased Anxiety, Difficulty Sleeping, Sleeping More Than Usual, Hopelessness, Increased Fatigue and Loss of Energy Judgement: Fair Assessment & Plan Assessment & Plan (1) Suicidal ideation: Status: Acute Code(s): R45.851 - Suicidal ideations (2) Depression: Status: Acute Qualifiers: Depression Type: unspecified Qualified Code(s): F32.A - Depression, unspecified Code(s): F32.A - Depression, unspecified (3) Sleep apnea-like behavior: Status: Acute Code(s): G47.39 - Other sleep apnea Plan restart prior medications - he said they helped Mileu and groups as tolerated suggested to nursing get a wedge to get bed more elevated at head- likely not able to work up sleep apnea as inpatient Patient educated on: diagnosis, medication risk/benefits and medical condition Informed Consent: understands and further education needed Reason for continued inpatient stay Substantial Risk for: harm to self, inability to function and rapid decompensation Statement Statement: I have reviewed the history and physical and performed a pertinent examination on my patient. No changes have occurred unless specified. If the History and Physical was not performed prior to admission, the Hospitalist's service will be consulted for completing the admission physical. Time Spent With Patient Time: Total time managing care of this patient today ____ minutes.
[2025-04-30 08:00] VITALS: BP 143/66; PULSE 65; RESP 18; TEMP 36.4; O2SAT 93
[2025-04-30 11:54] LABS: Hemoglobin A1C 99.6235 umol/L; Total Hemoglobin (HGBA1C) 3301.9189 umol/L
[2025-04-30 12:11] LABS: Alanine Aminotransferase 19 U/L (0-40); Albumin Level 4.3 g/dL (3.5-5.0); Alkaline Phosphatase 65 U/L (39-117); Anion Gap 13 (12-20); Aspartate Amino Transferase 29 U/L (5-37); Blood Urea Nitrogen 15 mg/dL (9-16); Calcium 9.8 mg/dL (8.4-10.2); Carbon Dioxide 24 mmol/L (22-29); Chloride 106 mmol/L (96-108); Cholesterol 145 mg/dL (<200); Creatinine Clr Calc Pharmacy 59.6; Estimated Glomerular Filt Rate 57; Free T4 (Free Thyroxine) 0.98 ng/dL (0.71-1.85); HDL Cholesterol 44 mg/dL (>40); Potassium 4.2 mmol/L (3.3-5.1); Sodium 139 mmol/L (135-145); Thyroid Stimulating Hormone 1.90 uIU/mL (0.32-4.0); Total Protein 7.1 g/dL (6.5-8.0); Triglycerides 100 mg/dL (<150)
[2025-04-30] MEDS: Mineral Oil/Petrolatum,White 106 GM Tube 1 APPL TOPICAL (15:42)
--- NOTE | 2025-04-30 16:04 | P.CONHOSP_ITS ---
History of Present Illness Data of Consult Service Date: 04/30/25 Primary Care Provider: [facility] HPI Reason for consult: Admission H&P Pt is a 54-year-old male with a PMH significant for HLD, hypertension, FRANKIE not on CPAP, hep C, CKD 3, bipolar disorder, anxiety, and depression admitted to psychiatric unit for depression with SI. Pt intially presented to [facility] with similar complaints and was cleared by crisis and discharged home 2 days prior. The following day went to a alliance party and smoked crack after being clean for a number a years. Subsequently had thoughts of self harm, including pouring boiling cooking oil over himself and cutting himself. Hospitalist consullt for medical H&P. Pt reports he feels well from a medical perspective and has no acute medical complaints. Denies SOB or difficulty breathing. No fever, chills, N/V/D, or abd pain. Review of Systems 2 Review of Systems: Yes all other systems are reviewed and are negative [facility] Medical History (Updated 04/30/25 @ 20:14 by OWEN Tomas) Severe recurrent major depressive disorder with psychosis HTN (hypertension) PTSD (post-traumatic stress disorder) Depression Suicidal ideation Social History (System 11/03/24 @ 10:30 by Miesha Wade) Household Members: None Household Members Other:: Recently from partner Housing: Homeless Do you presently have visiting nurse or other home services: No Patient Tobacco Use Status: Never used Tobacco Currently Displaying Signs/Symptoms of Drug Intoxication Withdrawal: No Have you been hit, kicked, punched, or otherwise hurt by someone within the past year? If so, by whom?: No Do you feel safe in your current relationship?: No Current Relationship Is there a partner from a previous relationship who is making you feel unsafe now?: No Are you made to feel afraid or neglected: No Spiritual Healthcare Practices: Denies Restorationist Healthcare Practices: Denies Cultural Healthcare Practices: Denies Advance Directives: No Advance Directives Information Provided: No Do you have thoughts of harming others: None Do you have a plan to hurt others: No Plan Recently lost weight without trying: No Nutrition Risks: No Nutritional Risk Poor oral hygiene: No service: No Sexual orientation: Straight/Heterosexual Meds Allergies Allergy/AdvReac Type Severity Reaction Status Date / Time No Known Allergies (No Known Allergy Verified 04/27/25 19:47 Allergies*) Active Medications: Current Medications Acetaminophen (Acetaminophen 325 Mg Tablet) 650 mg PO Q6H PRN PRN Reason: Headache/Pain, Scale 1-10 Al Hydroxide/Mg Hydroxide (Magnesium Hydrox/Alum Hydrox 30 Ml Oral.Susp) 30 ml PO Q6H PRN PRN Reason: Heartburn/Nausea Amlodipine Besylate (Amlodipine Besylate 5 Mg Tablet) 5 mg PO DAILY [facility]; Protocol Last Admin: 04/30/25 08:15 Dose: 5 mg Clonazepam (Clonazepam 0.5 Mg Tablet) 1.5 mg PO BID [facility] Doxepin HCl (Doxepin Hcl 25 Mg Capsule) 50 mg PO BEDTIME [facility] Last Admin: 04/29/25 22:17 Dose: 50 mg Gabapentin (Gabapentin 400 Mg Capsule) 800 mg PO TID [facility] Last Admin: 04/30/25 14:18 Dose: 800 mg Hydroxyzine HCl (Hydroxyzine Hcl 25 Mg Tablet) 25 mg PO Q6H PRN PRN Reason: mild anxiety Last Admin: 04/29/25 19:20 Dose: 25 mg [place] Carbonate ([place] Carbonate 300 Mg Capsule) 300 mg PO DAILY [facility] Last Admin: 04/30/25 08:15 Dose: 300 mg [place] Carbonate ([place] Carbonate 300 Mg Capsule) 600 mg PO BEDTIME [facility] Last Admin: 04/29/25 22:10 Dose: 600 mg Lurasidone HCl (Lurasidone Hcl 20 Mg Tablet) 60 mg PO BEDTIME [facility] Last Admin: 04/29/25 22:08 Dose: 60 mg Magnesium Hydroxide (Milk Of Magnesia 30 Ml Oral.Susp) 30 ml PO DAILY PRN PRN Reason: Constipation Melatonin (Melatonin 3 Mg Tablet) 6 mg PO BEDTIME [facility] Last Admin: 04/29/25 22:09 Dose: 6 mg Multi-Ingred Cream/Lotion/Oil/Oint (Mineral Oil/Petrolatum,White 106 Gm Tube) 1 appl TOPICAL BID [facility]; Protocol Last Admin: 04/30/25 15:42 Dose: 1 appl Naproxen (Naproxen 500 Mg Tablet) 500 mg PO BID [facility] Last Admin: 04/30/25 08:15 Dose: 500 mg Nicotine Polacrilex (Nicotine Polacrilex 2 Mg Gum) 2 mg BUCCAL Q2H PRN PRN Reason: Nicotine Cravings Non-Formulary Medication ( Fenofibrate 145 Mg Capsule) 145 mg PO DAILY [facility] Sertraline HCl (Sertraline Hcl 50 Mg Tablet) 150 mg PO DAILY JOSEFA Last Admin: 04/30/25 08:15 Dose: 150 mg Trazodone HCl (Trazodone Hcl 50 Mg Tablet) 50 mg PO BEDTIME MRX1 PRN PRN Reason: Insomnia Home Medications ?Medication ?Instructions ?Recorded ?Confirmed ?Last Taken ?Type amlodipine 10 mg tablet 5 mg PO DAILY 04/15/2504/2904/14/25 History clonazepam 2 mg tablet 2 mg PO BID 04/15/25 5 04/14/25 History doxepin 50 mg capsule 50 mg PO BEDTIME 04/15/2504/14/25 History fenofibrate 50 mg capsule 145 mg PO DAILY 04/15/2504/14/25 History hydrocortisone 1 % topical cream 1 appl topical BID DC N Itching 04/15/25 04/28/25 Unknown History lithium carbonate 150 mg capsule 300 mg PO DAILY 04/1504/29/25 04/14/25 History lithium carbonate 300 mg tablet 600 mg PO BEDTIME 04/0404/29/25 04/14/25 History melatonin 3 mg tablet 6 mg PO BEDTIME 04/15/2504/14/25 History meloxicam 15 mg tablet 15 mg PO DAILY 04/15/2504/0504/14/25 History sertraline 50 mg tablet 50 mg PO DAILY 04/15/2504/0404/14/25 History gabapentin 800 mg tablet 800 mg PO TID 04/28/2504/29 Unknown History lurasidone 40 mg tablet 60 mg PO BEDTIME 04/28/25 Unknown History sertraline 100 mg tablet 150 mg PO DAILY 04/28/25 Unknown History gabapentin 800 mg tablet mg 04/29/25 Unknown History Physical Exam 2 Vital Signs and Narrative: Vital Signs: Last Vital Signs Temp 97.6 F 04/30/25 08:00 Pulse 65 04/30/25 08:00 Resp 18 04/30/25 08:00 BP 143/66 H 04/30/25 08:00 Pulse Ox 93 04/30/25 08:00 O2 Del Method Room Air 04/30/25 08:00 BMI result Body Mass Index 35.9 General: AOx3, no acute distress Resp: CTA bilaterally CVS: S1, S2, RRR GI: +BS, NT, no distention Skin: Warm, dry Neuro: Cranial nerves II-XII grossly intact bilaterally. Motor grossly intact bilaterally Extremities: No edema Psych: Appropriate affect Results Labs 04/30/25 11:11 Labs: Laboratory Results - last 24 hr 04/30/25 11:11 Anion Gap 13 Estim Creat Clear Calc 59.6 Estimated GFR 57 Random Glucose 137 H Estimat Average Glucose 94 Hemoglobin A1c % 4.9 Calcium 9.8 Total Bilirubin 0.6 AST 29 ALT 19 Alkaline Phosphatase 65 Total Protein 7.1 Albumin 4.3 Triglycerides 100 Cholesterol 145 LDL Cholesterol, Calc 81 HDL Cholesterol 44 TSH 1.90 Free T4 0.98 Assessment and Plan (1) Medical clearance for psychiatric admission: Status: Acute Plan Pt is a 54-year-old male with a PMH significant for HLD, hypertension, FRANKIE not on CPAP, hep C, CKD 3, bipolar disorder, anxiety, and depression admitted to [facility] for depression with SI. Hospitalist consult for medical management Mood disorder Plan as per psychiatry HTN Continue amlodipine HLD Continue fenofibrate CKD3 Baseline creatinine 1.6-1.8 Likely FRANKIE, undiagnosed Follow up outpatient for sleep study Thank you for allowing us to participate in the care of this patient. Signing off at this time. Please re-consult if any acute complaints or issues arise.
[2025-04-30 20:00] VITALS: BP 160/76; PULSE 77; RESP 16; TEMP 36.7; O2SAT 96
--- NOTE | 2025-05-01 07:25 | HO.PSYCHPN ---
Subjective Subjective Date of Service: 05/01/25 Reason For Visit: SI Subjective Notes: Conditional Voluntary Medical Problems Affecting Mental Status: Yes (sleep apnea likely, untreated) Interim History: 54 yo HM seen with translation machine- reports he is ok except for cheeks continuing to request lotrimin and yes his cheeks look worse today after eucerin - (vasline?) . Feels rest of medications are correct- pt feeling less dep/anxious , denying si and NO AH! However later in day episode of dizziness , sudden blurred vision headache and tremors- meds where held, on review he was put on 150mg sertraline on admission 04/29 when he had been on 50mg 04/25- I lowered his lithium to 300mg bid due to CKD3 , Also lowered gabapentin to 600 tid (from 800) gabapentin also goes thru kidneys- and pt is sleepy and snoring and decreased sertraline to 50mg Also asked staff to buy him clothing=- Also patient should likely not be on benzo at night due to sleep apneic like pattern- have been lowering his pm clonazepam over weekend Medication Compliance: Yes Side effects from medications: Yes (too much sertraline, dec kidney metabolized meds) Attending Groups: No Review of Systems Acute medical concerns: Yes see above Medical Review of Systems: changed Review of Systems: see above hydrocortisone written for cheeks Mental Status Exam Mental Status Exam Narrative: snoring in bed- More rousable this am - more steady Patient Appearance: Unkempt Patient Orientation: Person, Place and Situation Level of Consciousness: Drowsy Patient Behavior: Appropriate, Cooperative, Passive and Fatigued Mood Description: Calm Patient Cognition Impaired: No Ability to Follow Directions: Fair Speech Pattern: Clear and Mumbled Hallucinations: Auditory (now says none) Delusions: Not Present Thought Process: Intact and Goal Oriented Thought Content: positive for [place] and positive for Evasive Depressive Symptoms: Significant Weight Gain and Increased Fatigue Judgement: Fair Diagnostics Vital Signs (24Hr): Vital Signs - 24 hr 04/30/25 08:00 04/30/25 20:00 Temperature 97.6 F 98.1 F Pulse Rate 65 77 Respiratory Rate 18 16 Blood Pressure 143/66 H 160/76 H Pulse Oximetry 93 96 Oxygen Delivery Method Room Air Room Air BMI result Body Mass Index 35.9 Labs 05/01/25 14:29 Labs: Laboratory Results - last 48 hr 04/30/25 11:11 Sodium 139 Potassium 4.2 Chloride 106 Carbon Dioxide 24 Anion Gap 13 BUN 15 Creatinine 1.32 Estim Creat Clear Calc 59.6 Estimated GFR 57 Random Glucose 137 H Estimat Average Glucose 94 Hemoglobin A1c % 4.9 Calcium 9.8 Total Bilirubin 0.6 AST 29 ALT 19 Alkaline Phosphatase 65 Total Protein 7.1 Albumin 4.3 Triglycerides 100 Cholesterol 145 LDL Cholesterol, Calc 81 HDL Cholesterol 44 TSH 1.90 Free T4 0.98 Medications Medications Current Medications Acetaminophen (Acetaminophen 325 Mg Tablet) 650 mg PO Q6H PRN PRN Reason: Headache/Pain, Scale 1-10 Al Hydroxide/Mg Hydroxide (Magnesium Hydrox/Alum Hydrox 30 Ml Oral.Susp) 30 ml PO Q6H PRN PRN Reason: Heartburn/Nausea Amlodipine Besylate (Amlodipine Besylate 5 Mg Tablet) 5 mg PO DAILY COUNT [facility]CLUDES [facility]; Protocol Last Admin: 04/30/25 08:15 Dose: 5 mg Clonazepam (Clonazepam 0.5 Mg Tablet) 1.5 mg PO BID COUNT INCLUDES THE [facility] Last Admin: 04/30/25 20:26 Dose: 1.5 mg Doxepin HCl (Doxepin Hcl 25 Mg Capsule) 50 mg PO BEDTIME JOSEFA Last Admin: 04/30/25 20:29 Dose: 50 mg Gabapentin (Gabapentin 400 Mg Capsule) 800 mg PO TID COUNT INCLUDES [facility] Last Admin: 04/30/25 20:28 Dose: 800 mg Hydroxyzine HCl (Hydroxyzine Hcl 25 Mg Tablet) 25 mg PO Q6H PRN PRN Reason: mild anxiety Last Admin: 04/29/25 19:20 Dose: 25 mg [place] Carbonate ([place] Carbonate 300 Mg Capsule) 300 mg PO DAILY COUNT INCLUDES [facility] Last Admin: 04/30/25 08:15 Dose: 300 mg [place] Carbonate ([place] Carbonate 300 Mg Capsule) 600 mg PO BEDTIME JOSEFA Last Admin: 04/30/25 20:25 Dose: 600 mg Lurasidone HCl (Lurasidone Hcl 20 Mg Tablet) 60 mg PO BEDTIME COUNT [facility]CLUDES [facility] Last Admin: 04/30/25 20:24 Dose: 60 mg Magnesium Hydroxide (Milk Of Magnesia 30 Ml Oral.Susp) 30 ml PO DAILY PRN PRN Reason: Constipation Melatonin (Melatonin 3 Mg Tablet) 6 mg PO BEDTIME COUNT [facility]CLUD[facility] Last Admin: 04/30/25 20:27 Dose: 6 mg Multi-Ingred Cream/Lotion/Oil/Oint (Mineral Oil/Petrolatum,White 106 Gm Tube) 1 appl TOPICAL BID COUNT INCLUDES [facility]; Protocol Last Admin: 04/30/25 21:13 Dose: Not Given Naproxen (Naproxen 500 Mg Tablet) 500 mg PO BID COUNT INCLUDES [facility] Last Admin: 04/30/25 20:25 Dose: 500 mg Nicotine Polacrilex (Nicotine Polacrilex 2 Mg Gum) 2 mg BUCCAL Q2H PRN PRN Reason: Nicotine Cravings Non-Formulary Medication ( Fenofibrate 145 Mg Capsule) 145 mg PO DAILY COUNT INCLUDES [facility] Sertraline HCl (Sertraline Hcl 50 Mg Tablet) 150 mg PO DAILY COUNT INCLUDES [facility] Last Admin: 04/30/25 08:15 Dose: 150 mg Trazodone HCl (Trazodone Hcl 50 Mg Tablet) 50 mg PO BEDTIME MRX1 PRN PRN Reason: Insomnia Allergies Allergies Allergy/AdvReac Type Severity Reaction Status Date / Time No Known Allergies (No Known Allergy Verified 04/27/25 19:47 Allergies*) Assessment & Plan Assessment & Plan (1) Suicidal ideation: Status: Acute Code(s): R45.851 - Suicidal ideations (2) Severe recurrent major depressive disorder with psychosis: Status: Acute Code(s): F33.3 - Major depressive disorder, recurrent, severe with psychotic symptoms (3) PTSD (post-traumatic stress disorder): Status: Acute Code(s): F43.10 - Post-traumatic stress disorder, unspecified (4) Cocaine abuse: Status: Acute Code(s): F14.10 - Cocaine abuse, uncomplicated (5) CKD (chronic kidney disease) stage 3, GFR 30-59 ml/min: Status: Acute Code(s): N18.30 - Chronic kidney disease, stage 3 unspecified Plan Pt is a 54-year-old male with a PMH significant for HLD, hypertension, FRANKIE not on CPAP, hep C, CKD 3, bipolar disorder, anxiety, and depression admitted to [facility] unit for depression with SI. Hospitalist consult for medical management Mood disorder Plan as per psychiatry HTN Continue amlodipine HLD Continue fenofibrate CKD3 Baseline creatinine 1.6-1.8 Likely FRANKIE, undiagnosed Follow up outpatient for sleep study Thank you for allowing us to participate in the care of this patient. Signing off at this time. Please re-consult if any acute complaints or issues arise. Patient educated on: medication risk/benefits and medical condition Informed Consent: further education needed Reason for continued inpatient stay Substantial Risk for: harm to self, inability to function and rapid decompensation Time Spent With Patient Time: Total time managing care of this patient today ____ minutes.
[2025-05-01 08:00] VITALS: BP 162/81; PULSE 62; RESP 19; TEMP 36.7; O2SAT 93
[2025-05-01 08:19] VITALS: BP 162/81
[2025-05-01 13:45] VITALS: BP 140/85; PULSE 85; RESP 16; TEMP 37.7; O2SAT 95
[2025-05-01 14:46] LABS: Lithium 0.75 mmol/L (0.60-1.20)
[2025-05-01 14:53] LABS: Anion Gap 15 (12-20); Blood Urea Nitrogen 27 mg/dL (9-16); Carbon Dioxide 28 mmol/L (22-29); Chloride 103 mmol/L (96-108); Creatinine Clr Calc Pharmacy 42.7; Estimated Glomerular Filt Rate 39; Potassium 4.3 mmol/L (3.3-5.1); Sodium 142 mmol/L (135-145)
[2025-05-01 14:59] LABS: Calcium 11.2 mg/dL (8.4-10.2)
[2025-05-01] MEDS: Hydrocortisone 1 % Cream 28.35 GM TUBE 1 APPL TOPICAL (21:10)
[2025-05-01 21:21] VITALS: BP 160/77; PULSE 84; RESP 16; TEMP 37.3; O2SAT 97
[2025-05-02 08:00] VITALS: BP 121/64; PULSE 65; RESP 17; TEMP 36.9; O2SAT 93
[2025-05-02 08:14] VITALS: BP 121/64
--- NOTE | 2025-05-02 09:50 | P.PNPSI_ITS ---
Subjective Subjective Date of Service: 05/02/25 Reason For Visit: SI Interim History: Met with patient; discussed with team, patient seen with futures trader Krista Patient reports that he is feeling really good, good mood and hopeful. Says that when he came in he was feeling uncontrolled and in a bad condition but now feels medications are right and he is doing well. Denies any AVH or any SI. Discussed cocaine abuse and he says he took cocaine only because he felt down and was otherwise sober for 11 years; however he is still thinking he would benefit from a program for substance abuse. Also discussed stopping naproxen since he is on lithium with which he agrees also given CKD Mental Status Exam Mental Status Exam Narrative: Pt is alert and oriented; behavior is cooperative, friendly and calm; patient is not in distress; dressed in casual attire, some red splotches on his face, unkempt hair but adequate hygiene; mood is described as good and affect congruent; eye contact appropriate; Speech is normal rate, volume and prosody and not pressured; no psychomotor agitation/retardation present; thought process is organized and goal directed; Thought content is on tx; otherwise pertinent to relevant topics and without any delusional content, paranoid ideations or grandiosity; denies any SI/HI. Denies AVH and there is no evidence of perceptual disturbance. Patients insight and judgment appear intact. Diagnostics Vital Signs (24Hr): Vital Signs - 24 hr 05/01/25 13:45 05/01/25 21:21 05/02/25 08:14 Temperature 99.9 F 99.1 F Pulse Rate 85 84 Respiratory Rate 16 16 Blood Pressure 140/85 H 160/77 H 121/64 Pulse Oximetry 95 97 Oxygen Delivery Method Room Air Room Air BMI result Body Mass Index 35.9 Labs 05/01/25 14:29 Labs: Laboratory Results - last 48 hr 04/30/25 05/01/25 11:11 14:29 Sodium 139 142 Potassium 4.2 4.3 Chloride 106 103 Carbon Dioxide 24 28 Anion Gap 13 15 BUN 15 27 H Creatinine 1.32 1.84 H Estim Creat Clear Calc 59.6 42.7 Estimated GFR 57 39 Random Glucose 137 H 129 H Estimat Average Glucose 94 Hemoglobin A1c % 4.9 Calcium 9.8 11.2 H D Total Bilirubin 0.6 AST 29 ALT 19 Alkaline Phosphatase 65 Total Protein 7.1 Albumin 4.3 Triglycerides 100 Cholesterol 145 LDL Cholesterol, Calc 81 HDL Cholesterol 44 TSH 1.90 Free T4 0.98 [place] 0.75 Medications Medications Current Medications Acetaminophen (Acetaminophen 325 Mg Tablet) 650 mg PO Q6H PRN PRN Reason: Headache/Pain, Scale 1-10 Last Admin: 05/01/25 13:50 Dose: 650 mg Al Hydroxide/Mg Hydroxide (Magnesium Hydrox/Alum Hydrox 30 Ml Oral.Susp) 30 ml PO Q6H PRN PRN Reason: Heartburn/Nausea Amlodipine Besylate (Amlodipine Besylate 5 Mg Tablet) 5 mg PO DAILY JOSEFA; Protocol Last Admin: 05/02/25 08:14 Dose: 5 mg Clonazepam (Clonazepam 0.5 Mg Tablet) 1.5 mg PO DAILY JOSEFA Last Admin: 05/02/25 08:13 Dose: 1.5 mg Clonazepam (Clonazepam 1 Mg Tablet) 1 mg PO BEDTIME JOSEFA Last Admin: 05/01/25 21:12 Dose: 1 mg Doxepin HCl (Doxepin Hcl 25 Mg Capsule) 50 mg PO BEDTIME JOSEFA Last Admin: 05/01/25 21:12 Dose: 50 mg Gabapentin (Gabapentin 300 Mg Capsule) 600 mg PO TID JOSEFA Last Admin: 05/02/25 08:12 Dose: 600 mg Hydrocortisone (Hydrocortisone 1 % Cream 28.35 Gm Tube) 1 appl TOPICAL BID JOSEFA; Protocol Last Admin: 05/02/25 08:57 Dose: Not Given Hydroxyzine HCl (Hydroxyzine Hcl 25 Mg Tablet) 25 mg PO Q6H PRN PRN Reason: mild anxiety Last Admin: 04/29/25 19:20 Dose: 25 mg [place] Carbonate ([place] Carbonate 300 Mg Capsule) 300 mg PO DAILY JOSEFA On Hold: 05/01/25 14:16 Last Admin: 05/01/25 08:20 Dose: 300 mg [place] Carbonate ([place] Carbonate 300 Mg Capsule) 300 mg PO BEDTIME JOSEFA On Hold: 05/01/25 21:00 Lurasidone HCl (Lurasidone Hcl 20 Mg Tablet) 60 mg PO BEDTIME JOSEFA Last Admin: 05/01/25 21:13 Dose: 60 mg Magnesium Hydroxide (Milk Of Magnesia 30 Ml Oral.Susp) 30 ml PO DAILY PRN PRN Reason: Constipation Melatonin (Melatonin 3 Mg Tablet) 6 mg PO BEDTIME JOSEFA Last Admin: 05/01/25 21:13 Dose: 6 mg Naproxen (Naproxen 500 Mg Tablet) 500 mg PO BID JOSEFA On Hold: 05/01/25 14:15 Last Admin: 05/01/25 08:18 Dose: 500 mg Nicotine Polacrilex (Nicotine Polacrilex 2 Mg Gum) 2 mg BUCCAL Q2H PRN PRN Reason: Nicotine Cravings Non-Formulary Medication ( Fenofibrate 145 Mg Capsule) 145 mg PO DAILY JOSEFA Sertraline HCl (Sertraline Hcl 25 Mg Tablet) 75 mg PO DAILY [facility] Last Admin: 05/02/25 08:12 Dose: 75 mg Trazodone HCl (Trazodone Hcl 50 Mg Tablet) 50 mg PO BEDTIME MRX1 PRN PRN Reason: Insomnia Allergies Allergies Allergy/AdvReac Type Severity Reaction Status Date / Time No Known Allergies (No Known Allergy Verified 04/27/25 19:47 Allergies*) Assessment & Plan Assessment & Plan (1) Suicidal ideation: Status: Acute Code(s): R45.851 - Suicidal ideations (2) Severe recurrent major depressive disorder with psychosis: Status: Acute Code(s): F33.3 - Major depressive disorder, recurrent, severe with psychotic symptoms (3) PTSD (post-traumatic stress disorder): Status: Acute Code(s): F43.10 - Post-traumatic stress disorder, unspecified (4) Cocaine abuse: Status: Acute Code(s): F14.10 - Cocaine abuse, uncomplicated (5) CKD (chronic kidney disease) stage 3, GFR 30-59 ml/min: Status: Acute Code(s): N18.30 - Chronic kidney disease, stage 3 unspecified (6) Homeless: Status: Acute Code(s): Z59.00 - Homelessness unspecified Plan Last admission 04/19/25: Continue with home medications. Increase Latuda from 40 mg to 60 mg daily at bedtime. Given with full depression/psychosis. Continue with Klonopin 2 mg b.i.d. as home medication. We will check lithium level the next day on 04/18. Currently on total of 900 mg in divided dose. Sertraline HCl (Sertraline Hcl 50 Mg Tablet) 50 mg PO DAILY [facility] [place] Carbonate ([place] Carbonate 300 Mg Capsule) 300 mg PO DAILY@1200 JOSE[facility] [place] Carbonate ([place] Carbonate 300 Mg Capsule) 600 mg PO BEDTIME JOSEFA Lurasidone HCl (Lurasidone Hcl 20 Mg Tablet) 60 mg PO BEDTIME JOSE[facility] Clonazepam (Clonazepam 1 Mg Tablet) 2 mg PO BID JOSEFA Doxepin HCl (Doxepin Hcl 25 Mg Capsule) 50 mg PO BEDTIME JOSEFA Hospital course (This admission): Patient Feels rest of medications are correct- pt feeling less dep/anxious , denying si and NO AH! However later in day episode of dizziness , sudden blurred vision headache and tremors- meds where held, Lowered sertraline back to 50 mg (on review he was put on 150mg sertraline on admission 04/29 when he had been on 50mg 04/25) -lowered his lithium to 300mg bid due to CKD3 , -lowered gabapentin to 600 tid (from 800) gabapentin also goes thru kidneys- and pt is sleepy and snoring -decreased back to sertraline to 50mg -lowering his pm clonazepam over weekend due to sleep apneic like pattern- Hospital course: 05/02 Patient reports that he is feeling really good, good mood and hopeful. Says that when he came in he was feeling uncontrolled and in a bad condition but now feels medications are right and he is doing well. Denies any AVH or any SI. Discussed cocaine abuse and he says he took cocaine only because he felt down and was otherwise sober for 11 years; however he is still thinking he would benefit from a program for substance abuse. Also discussed stopping naproxen since he is on lithium with which he agrees also given CKD -patient creatinine bumped up however it remains similar to baseline -no dizziness or blurred vision -will keep current regimen as patient says he is feeling better Plan: CV Q 15 minute checks Lowered sertraline back to 50 mg (on review he was put on 150mg sertraline on admission 04/29 when he had been on 50mg 04/25) -lowered his lithium to 300mg bid due to CKD3 , -lowered gabapentin to 600 tid (from 800) gabapentin also goes thru kidneys- and pt is sleepy and snoring -decreased back to sertraline to 50mg -lowering his pm clonazepam over weekend due to sleep apneic like pattern- Medical comorbidities HTN Continue amlodipine HLD Continue fenofibrate CKD3 Baseline creatinine 1.6-1.8 Likely FRANKIE, undiagnosed Follow up outpatient for sleep study Patient educated on: diagnosis, medication risk/benefits and substance abuse Informed Consent: understands Reason for continued inpatient stay Substantial Risk for: rapid decompensation Time Spent With Patient Time: Total time managing care of this patient today ____ minutes.
[2025-05-02] MEDS: Hydrocortisone 1 % Cream 28.35 GM TUBE 1 APPL TOPICAL ×2 (11:50→21:29)
[2025-05-02 23:01] VITALS: BP 159/95; PULSE 84; RESP 18; TEMP 37.2; O2SAT 98
[2025-05-03 08:00] VITALS: BP 159/84; PULSE 69; RESP 18; TEMP 36.3; O2SAT 98
--- NOTE | 2025-05-03 09:59 | P.PNPSI_ITS ---
Subjective Subjective Date of Service: 05/03/25 Reason For Visit: SI Interim History: met with patient; discussed with team; seen with typing section chief Cheryl Patient says that he is feeling a little depressed today but does not know why. Discussed medication regimen and he agrees to increase Latuda dose. Discussed substance abuse again. Will yesterday patient only acknowledged using cocaine once, today he says he has heroin about 5 days a week. Patient remains interested in substance abuse program. Also interested in MAT and senior grant writer agreed to put in addiction consult Mental Status Exam Mental Status Exam Narrative: Pt is alert and oriented; behavior is cooperative, isolative, calm; patient is not in distress; dressed in casual attire, some red splotches on his face, unkempt hair but adequate hygiene; mood is described as a little down and affect congruent; eye contact appropriate; Speech is normal rate, volume and prosody and not pressured; no psychomotor agitation/retardation present; thought process is organized and goal directed; Thought content is on tx; otherwise pertinent to relevant topics and without any delusional content, paranoid ideations or grandiosity; denies any SI/HI. Denies AVH and there is no evidence of perceptual disturbance. Patients insight and judgment appear intact. Diagnostics Vital Signs (24Hr): Vital Signs - 24 hr 05/02/25 23:01 05/03/25 08:00 Temperature 99.0 F 97.4 F Pulse Rate 84 69 Respiratory Rate 18 18 Blood Pressure 159/95 H 159/84 H Pulse Oximetry 98 98 Oxygen Delivery Method Room Air Room Air BMI result Body Mass Index 35.9 Labs 05/01/25 14:29 Labs: Laboratory Results - last 48 hr 05/01/25 14:29 Sodium 142 Potassium 4.3 Chloride 103 Carbon Dioxide 28 Anion Gap 15 BUN 27 H Creatinine 1.84 H Estim Creat Clear Calc 42.7 Estimated GFR 39 Random Glucose 129 H Calcium 11.2 H D [place] 0.75 Medications Medications Current Medications Acetaminophen (Acetaminophen 325 Mg Tablet) 650 mg PO Q6H PRN PRN Reason: Headache/Pain, Scale 1-10 Last Admin: 05/01/25 13:50 Dose: 650 mg Al Hydroxide/Mg Hydroxide (Magnesium Hydrox/Alum Hydrox 30 Ml Oral.Susp) 30 ml PO Q6H PRN PRN Reason: Heartburn/Nausea Amlodipine Besylate (Amlodipine Besylate 5 Mg Tablet) 5 mg PO DAILY JOSEFA; Protocol Last Admin: 05/03/25 08:33 Dose: 5 mg Clonazepam (Clonazepam 0.5 Mg Tablet) 1.5 mg PO DAILY JOSEFA Last Admin: 05/03/25 08:33 Dose: 1.5 mg Clonazepam (Clonazepam 1 Mg Tablet) 1 mg PO BEDTIME JOSEFA Last Admin: 05/02/25 21:30 Dose: 1 mg Doxepin HCl (Doxepin Hcl 25 Mg Capsule) 50 mg PO BEDTIME JOSEFA Last Admin: 05/02/25 21:30 Dose: 50 mg Gabapentin (Gabapentin 300 Mg Capsule) 600 mg PO TID JOSEFA Last Admin: 05/03/25 08:33 Dose: 600 mg Hydrocortisone (Hydrocortisone 1 % Cream 28.35 Gm Tube) 1 appl TOPICAL BID JOSEFA; Protocol Last Admin: 05/03/25 08:34 Dose: Not Given Hydroxyzine HCl (Hydroxyzine Hcl 25 Mg Tablet) 25 mg PO Q6H PRN PRN Reason: mild anxiety Last Admin: 04/29/25 19:20 Dose: 25 mg [place] Carbonate ([place] Carbonate 300 Mg Capsule) 300 mg PO DAILY JOSEFA On Hold: 05/01/25 14:16 Last Admin: 05/01/25 08:20 Dose: 300 mg [place] Carbonate ([place] Carbonate 300 Mg Capsule) 300 mg PO BEDTIME JOSEFA On Hold: 05/01/25 21:00 Lurasidone HCl (Lurasidone Hcl 20 Mg Tablet) 60 mg PO BEDTIME JOSEFA Last Admin: 05/02/25 21:29 Dose: 60 mg Magn[place] Hydroxide (Milk Of Magnesia 30 Ml Oral.Susp) 30 ml PO DAILY PRN PRN Reason: Constipation Melatonin (Melatonin 3 Mg Tablet) 6 mg PO BEDTIME [facility] Last Admin: 05/02/25 21:30 Dose: 6 mg Nicotine Polacrilex (Nicotine Polacrilex 2 Mg Gum) 2 mg BUCCAL Q2H PRN PRN Reason: Nicotine Cravings Non-Formulary Medication ( Fenofibrate 145 Mg Capsule) 145 mg PO DAILY [facility] Sertraline HCl (Sertraline Hcl 25 Mg Tablet) 75 mg PO DAILY [facility] Last Admin: 05/03/25 08:33 Dose: 75 mg Trazodone HCl (Trazodone Hcl 50 Mg Tablet) 50 mg PO BEDTIME MRX1 PRN PRN Reason: Insomnia Allergies Allergies Allergy/AdvReac Type Severity Reaction Status Date / Time No Known Allergies (No Known Allergy Verified 04/27/25 19:47 Allergies*) Assessment & Plan Assessment & Plan (1) Severe recurrent major depressive disorder with psychosis: Status: Inactive Code(s): F33.3 - Major depressive disorder, recurrent, severe with psychotic symptoms (2) PTSD (post-traumatic stress disorder): Status: Acute Code(s): F43.10 - Post-traumatic stress disorder, unspecified (3) Suicidal ideation: Status: Inactive Code(s): R45.851 - Suicidal ideations (4) Cocaine abuse: Status: Acute Code(s): F14.10 - Cocaine abuse, uncomplicated (5) CKD (chronic kidney disease) stage 3, GFR 30-59 ml/min: Status: Acute Code(s): N18.30 - Chronic kidney disease, stage 3 unspecified (6) Homeless: Status: Acute Code(s): Z59.00 - Homelessness unspecified (7) Opioid use disorder: Status: Acute Code(s): F11.90 - Opioid use, unspecified, uncomplicated (8) Sleep apnea-like behavior: Status: Acute Code(s): G47.39 - Other sleep apnea Plan Last admission 04/19/25: Continue with home medications. Increase Latuda from 40 mg to 60 mg daily at bedtime. Given with full depression/psychosis. Continue with Klonopin 2 mg b.i.d. as home medication. We will check lithium level the next day on 04/18. Currently on total of 900 mg in divided dose. Sertraline HCl (Sertraline Hcl 50 Mg Tablet) 50 mg PO DAILY [facility] [place] Carbonate ([place] Carbonate 300 Mg Capsule) 300 mg PO DAILY@1200 JOSEFA [place] Carbonate ([place] Carbonate 300 Mg Capsule) 600 mg PO BEDTIME JOSE[facility] Lurasidone HCl (Lurasidone Hcl 20 Mg Tablet) 60 mg PO BEDTIME JO[facility] Clonazepam (Clonazepam 1 Mg Tablet) 2 mg PO BID JOSE[facility] Doxepin HCl (Doxepin Hcl 25 Mg Capsule) 50 mg PO BEDTIME JOSE[facility] Hospital course (This admission): Patient Feels rest of medications are correct- pt feeling less dep/anxious , denying si and NO AH! However later in day episode of dizziness , sudden blurred vision headache and tremors- meds where held, Lowered sertraline back to 50 mg (on review he was put on 150mg sertraline on admission 04/29 when he had been on 50mg 04/25) -lowered his lithium to 300mg bid due to CKD3 , -lowered gabapentin to 600 tid (from 800) gabapentin also goes thru kidneys- and pt is sleepy and snoring -decreased back to sertraline to 50mg -lowering his pm clonazepam over weekend due to sleep apneic like pattern- Hospital course: 05/02 Patient reports that he is feeling really good, good mood and hopeful. Says that when he came in he was feeling uncontrolled and in a bad condition but now feels medications are right and he is doing well. Denies any AVH or any SI. Discussed cocaine abuse and he says he took cocaine only because he felt down and was otherwise sober for 11 years; however he is still thinking he would benefit from a program for substance abuse. Also discussed stopping naproxen since he is on lithium with which he agrees also given CKD -patient creatinine bumped up however it remains similar to baseline -no dizziness or blurred vision -will keep current regimen as patient says he is feeling better 05/03 patient reports he is feeling a little down today though does not know why; agrees to increase Latuda; acknowledged that he abuses heroin multiple times a week -placed addiction consult Patient remains in good behavioral and impulse control, appropriate with peers and staff Patient is stable on current medication regimen Plan: CV Q 15 minute checks Increased Latuda to 80 mg -sertraline back to 75 mg (on review he was put on 150mg sertraline on admission 04/29 when he had been on 50mg 04/25) -lowered his lithium to 300mg bid due to CKD3 , -lowered gabapentin to 600 tid (from 800) gabapentin also goes thru kidneys- and pt is sleepy and snoring -decreased back to sertraline to 50mg -lowering his pm clonazepam over weekend due to sleep apneic like pattern- Medical comorbidities HTN Continue amlodipine HLD Continue fenofibrate CKD3 Baseline creatinine 1.6-1.8 Likely FRANKIE, undiagnosed Follow up outpatient for sleep study Patient educated on: diagnosis, medication risk/benefits, substance abuse and therapeutic strategies Informed Consent: understands Reason for continued inpatient stay Substantial Risk for: stable for discharge Time Spent With Patient Time: Total time managing care of this patient today ____ minutes.
[2025-05-03 12:09] LABS: Glucose, Whole Blood 80 mg/dL (60-115)
[2025-05-03 20:00] VITALS: BP 127/65; PULSE 78; RESP 18; TEMP 36.4; O2SAT 97
[2025-05-04 08:00] VITALS: BP 131/83; PULSE 75; TEMP 36.4; O2SAT 97
[2025-05-04 09:31] VITALS: BP 131/83
--- NOTE | 2025-05-04 13:37 | HO.ADDICT_ITS ---
History of Present Illness Date of Service: 05/04/2025 Chief Complaint: SI Reason for Consult: substance use Sources of Information: patient interviewed and chart reviewed HPI Narrative: Patient is a 54 year old [place] male admitted to unit with worsening depression and SI. Consult requested as patient reported ongoing substance use, and question opioid use. Patient seen on M5, he is pleasant and engaged in interview. He reports long history of substance use, including cocaine and heroin. Reports 11 years of recovery/abstaining from all substance use Approx 4-5 months ago he began to smoke crack cocaine. He identifies his relationship ending as a major trigger for recurrence of use. He states that he had been smoking approx 1-1.5 grams cocaine over the last few months. He denies recurrence with opiates. He denies withdrawal sx and cravings He verbalizes feeling motivated and positive and has no plans to use again. Discussed strategies to meet this goal, and he stated that he spoke with a Pharmacy Clerk today, and that was helpful knowing he has support. He also stated that he is hopeful he will get into a CSS program, and he wants to work to recoup what he lost. Past Psychiatric History: Reports have 5 prior inpatient admissions. Not able to recall facilities or date. Last admission was at [facility] about the months ago. History of [facility] respite and [facility] . ACCS from 04/08-04/15/25. History [facility] in [place] the months ago. Medical Evaluation Reviewed: Yes Review of Systems Constitutional: Reports as per HPI and Reports no additional constitutional complaints Diagnostics Vital Signs (24Hr): Vital Signs - 24 hr 05/03/25 20:00 05/04/25 08:00 05/04/25 09:31 Temperature 97.6 F 97.6 F Pulse Rate 78 75 Respiratory Rate 18 Blood Pressure 127/65 131/83 131/83 Pulse Oximetry 97 97 Oxygen Delivery Method Room Air Room Air BMI result Body Mass Index 35.9 Labs 05/01/25 14:29 Labs: Laboratory Results - last 48 hr 05/03/25 12:06 POC Glucose 80 Mental Status Exam Mental Status Exam Level of Consciousness: Awake, Appropriate and Alert Patient Behavior: Appropriate and Talkative Mood Description: Calm Affect Description: Calm Speech Pattern: Clear Thought Process: Intact Thought Content: positive for Intact Judgement: Good Medications Medications Current Medications Acetaminophen (Acetaminophen 325 Mg Tablet) 650 mg PO Q6H PRN PRN Reason: Headache/Pain, Scale 1-10 Last Admin: 05/01/25 13:50 Dose: 650 mg Al Hydroxide/Mg Hydroxide (Magnesium Hydrox/Alum Hydrox 30 Ml Oral.Susp) 30 ml PO Q6H PRN PRN Reason: Heartburn/Nausea Amlodipine Besylate (Amlodipine Besylate 5 Mg Tablet) 5 mg PO DAILY [facility]; Protocol Last Admin: 05/04/25 09:31 Dose: 5 mg Clonazepam (Clonazepam 0.5 Mg Tablet) 1.5 mg PO DAILY [facility] Last Admin: 05/04/25 09:25 Dose: 1.5 mg Clonazepam (Clonazepam 1 Mg Tablet) 1 mg PO BEDTIME JOSE[facility] Last Admin: 05/03/25 21:06 Dose: 1 mg Doxepin HCl (Doxepin Hcl 25 Mg Capsule) 50 mg PO BEDTIME JOSEFA Last Admin: 05/03/25 21:06 Dose: 50 mg Gabapentin (Gabapentin 300 Mg Capsule) 600 mg PO TID [facility]SE[facility] Last Admin: 05/04/25 09:26 Dose: 600 mg Hydrocortisone (Hydrocortisone 1 % Cream 28.35 Gm Tube) 1 appl TOPICAL BID [facility]; Protocol Last Admin: 05/04/25 09:29 Dose: Not Given Hydroxyzine HCl (Hydroxyzine Hcl 25 Mg Tablet) 25 mg PO Q6H PRN PRN Reason: mild anxiety Last Admin: 04/29/25 19:20 Dose: 25 mg [place] Carbonate ([place] Carbonate 300 Mg Capsule) 300 mg PO DAILY [facility] On Hold: 05/01/25 14:16 Last Admin: 05/01/25 08:20 Dose: 300 mg [place] Carbonate ([place] Carbonate 300 Mg Capsule) 300 mg PO BEDTIME [facility] On Hold: 05/01/25 21:00 Lurasidone HCl (Lurasidone Hcl 80 Mg Tablet) 80 mg PO BEDTIME [facility] Last Admin: 05/03/25 21:06 Dose: 80 mg Magnesium Hydroxide (Milk Of Magnesia 30 Ml Oral.Susp) 30 ml PO DAILY PRN PRN Reason: Constipation Melatonin (Melatonin 3 Mg Tablet) 6 mg PO BEDTIME JOSE[facility] Last Admin: 05/03/25 21:06 Dose: 6 mg Nicotine Polacrilex (Nicotine Polacrilex 2 Mg Gum) 2 mg BUCCAL Q2H PRN PRN Reason: Nicotine Cravings Sertraline HCl (Sertraline Hcl 25 Mg Tablet) 75 mg PO DAILY [facility] Last Admin: 05/04/25 09:26 Dose: 75 mg Trazodone HCl (Trazodone Hcl 50 Mg Tablet) 50 mg PO BEDTIME MRX1 PRN PRN Reason: Insomnia Allergies Allergies Allergy/AdvReac Type Severity Reaction Status Date / Time No Known Allergies (No Known Allergy Verified 04/27/25 19:47 Allergies*) Assessment & Plan Assessment & Plan (1) Cocaine use disorder: Status: Acute Code(s): F14.10 - Cocaine abuse, uncomplicated Assessment and Plan: * risk reduction discussed * encouraged patient to remain connected to Pharmacy Clerk * no evidence of opioid use or opioid use disorder--no indication for MOUD at this time Total time managing care of this patient today _30___ minutes. PMFSH Past Medical History Medical History (Updated 05/04/25 @ 13:37 by Loly White CNP) Opioid use disorder Homeless Opiate abuse, episodic Severe recurrent major depressive disorder with psychosis HTN (hypertension) PTSD (post-traumatic stress disorder) Depression Suicidal ideation Social History Social History (System 11/03/24 @ 10:30 by Miesha Wade) Household Members: None Household Members Other:: Recently from partner Housing: Homeless Do you presently have visiting nurse or other home services: No Patient Tobacco Use Status: Never used Tobacco Currently Displaying Signs/Symptoms of Drug Intoxication Withdrawal: No Have you been hit, kicked, punched, or otherwise hurt by someone within the past year? If so, by whom?: No Do you feel safe in your current relationship?: No Current Relationship Is there a partner from a previous relationship who is making you feel unsafe now?: No Are you made to feel afraid or neglected: No Spiritual Healthcare Practices: Denies [facility] Healthcare Practices: Denies Cultural Healthcare Practices: Denies Advance Directives: No Advance Directives Information Provided: No Do you have thoughts of harming others: None Do you have a plan to hurt others: No Plan Recently lost weight without trying: No Nutrition Risks: No Nutritional Risk Poor oral hygiene: No service: No Sexual orientation: Straight/Heterosexual
--- NOTE | 2025-05-04 17:35 | HO.PSYCHPN ---
Subjective Subjective Date of Service: 05/04/25 Reason For Visit: SI Subjective Notes: Conditional Voluntary Healthcare Proxy: No Guardianship: No Medical Problems Affecting Mental Status: No Interim History: Medical record and nursing notes reviewed; case discussed during rounds with team/nursing staff, and met with patient for supportive therapy/psychoeducation, as well as medication management. Meet with patient with the track laying equipment operator in exam room. Report anxiety a 3/10 and depression a 4/10. Sleep and appetite are good. Denies SI/SIB/HI. Report he saw couple of things and heard the voices talking but I did not talk to them in his room last night but not at this current time. He would like to go to treatment program for aftercare. Patient shares story about his that has made him depressed. Report it was a quick for only 3 months and he is still in the process of . He remains angry at this marriage as he spent a lot of money into the wedding. SW sent out referral to [facility], pending result. Medication Compliance: Yes Side effects from medications: No Attending Groups: Intermittent Review of Systems Acute medical concerns: No Medical Review of Systems: unchanged Review of Systems Constitutional: Reports as per HPI and Reports no additional constitutional complaints Mental Status Exam Mental Status Exam Narrative: Pt is alert and oriented; behavior is cooperative, isolative, calm; patient is not in distress; dressed in casual attire, some red splotches on his face which is improved, kempt hair and adequate hygiene; mood is described as better and affect congruent; eye contact appropriate; Speech is normal rate, volume and prosody and not pressured; no psychomotor agitation/retardation present; thought process is organized and goal directed; Thought content is on tx; otherwise pertinent to relevant topics and without any delusional content, paranoid ideations or grandiosity; denies any SI/HI. Report AVH last night in his room but not today. Patients insight and judgment appear intact. Diagnostics Vital Signs (24Hr): Vital Signs - 24 hr 05/03/25 20:00 05/04/25 08:00 05/04/25 09:31 Temperature 97.6 F 97.6 F Pulse Rate 78 75 Respiratory Rate 18 Blood Pressure 127/65 131/83 131/83 Pulse Oximetry 97 97 Oxygen Delivery Method Room Air Room Air BMI result Body Mass Index 35.9 Labs 05/01/25 14:29 Labs: Laboratory Results - last 48 hr 05/03/25 12:06 POC Glucose 80 Medications Medications Current Medications Acetaminophen (Acetaminophen 325 Mg Tablet) 650 mg PO Q6H PRN PRN Reason: Headache/Pain, Scale 1-10 Last Admin: 05/01/25 13:50 Dose: 650 mg Al Hydroxide/Mg Hydroxide (Magnesium Hydrox/Alum Hydrox 30 Ml Oral.Susp) 30 ml PO Q6H PRN PRN Reason: Heartburn/Nausea Amlodipine Besylate (Amlodipine Besylate 5 Mg Tablet) 5 mg PO DAILY [facility]; Protocol Last Admin: 05/04/25 09:31 Dose: 5 mg Clonazepam (Clonazepam 0.5 Mg Tablet) 1.5 mg PO DAILY JOSEFA Last Admin: 05/04/25 09:25 Dose: 1.5 mg Clonazepam (Clonazepam 1 Mg Tablet) 1 mg PO BEDTIME JOSEFA Last Admin: 05/03/25 21:06 Dose: 1 mg Doxepin HCl (Doxepin Hcl 25 Mg Capsule) 50 mg PO BEDTIME JOSEFA Last Admin: 05/03/25 21:06 Dose: 50 mg Gabapentin (Gabapentin 300 Mg Capsule) 600 mg PO TID JOSEFA Last Admin: 05/04/25 15:23 Dose: 600 mg Hydrocortisone (Hydrocortisone 1 % Cream 28.35 Gm Tube) 1 appl TOPICAL BID [facility]SE[facility]; Protocol Last Admin: 05/04/25 09:29 Dose: Not Given Hydroxyzine HCl (Hydroxyzine Hcl 25 Mg Tablet) 25 mg PO Q6H PRN PRN Reason: mild anxiety Last Admin: 04/29/25 19:20 Dose: 25 mg [place] Carbonate (Tingley Carbonate 300 Mg Capsule) 300 mg PO DAILY [facility] On Hold: 05/01/25 14:16 Last Admin: 05/01/25 08:20 Dose: 300 mg [place] Carbonate (Tingley Carbonate 300 Mg Capsule) 300 mg PO BEDTIME JOSEFA On Hold: 05/01/25 21:00 Lurasidone HCl (Lurasidone Hcl 80 Mg Tablet) 80 mg PO BEDTIME JOSEFA Last Admin: 05/03/25 21:06 Dose: 80 mg Magnesium Hydroxide (Milk Of Magnesia 30 Ml Oral.Susp) 30 ml PO DAILY PRN PRN Reason: Constipation Melatonin (Melatonin 3 Mg Tablet) 6 mg PO BEDTIME JOSEFA Last Admin: 05/03/25 21:06 Dose: 6 mg Nicotine Polacrilex (Nicotine Polacrilex 2 Mg Gum) 2 mg BUCCAL Q2H PRN PRN Reason: Nicotine Cravings Sertraline HCl (Sertraline Hcl 25 Mg Tablet) 75 mg PO DAILY [facility] Last Admin: 05/04/25 09:26 Dose: 75 mg Trazodone HCl (Trazodone Hcl 50 Mg Tablet) 50 mg PO BEDTIME MRX1 PRN PRN Reason: Insomnia Allergies Allergies Allergy/AdvReac Type Severity Reaction Status Date / Time No Known Allergies (No Known Allergy Verified 04/27/25 19:47 Allergies*) Assessment & Plan Assessment & Plan (1) Cocaine use disorder: Status: Acute Code(s): F14.10 - Cocaine abuse, uncomplicated Assessment and Plan: (2) PTSD (post-traumatic stress disorder): Status: Acute Code(s): F43.10 - Post-traumatic stress disorder, unspecified (3) Depression: Qualifiers: Depression Type: unspecified Qualified Code(s): F32.A - Depression, unspecified Status: Acute Code(s): F32.A - Depression, unspecified (4) CKD (chronic kidney disease) stage 3, GFR 30-59 ml/min: Status: Acute Code(s): N18.30 - Chronic kidney disease, stage 3 unspecified Plan Plan Last admission 04/19/25: Continue with home medications. Increase Latuda from 40 mg to 60 mg daily at bedtime. Given with full depression/psychosis. Continue with Klonopin 2 mg b.i.d. as home medication. We will check lithium level the next day on 04/18. Currently on total of 900 mg in divided dose. Sertraline HCl (Sertraline Hcl 50 Mg Tablet) 50 mg PO DAILY [facility] Tingley Carbonate (Tingley Carbonate 300 Mg Capsule) 300 mg PO DAILY@1200 [facility] [place] Carbonate ([place]ingley Carbonate 300 Mg Capsule) 600 mg PO BEDTIME [facility] Lurasidone HCl (Lurasidone Hcl 20 Mg Tablet) 60 mg PO BEDTIME [facility] Clonazepam (Clonazepam 1 Mg Tablet) 2 mg PO BID [facility] Doxepin HCl (Doxepin Hcl 25 Mg Capsule) 50 mg PO BEDTIME [facility] Hospital course (This admission): Patient Feels rest of medications are correct- pt feeling less dep/anxious , denying si and NO AH! However later in day episode of dizziness , sudden blurred vision headache and tremors- meds where held, Lowered sertraline back to 50 mg (on review he was put on 150mg sertraline on admission 04/29 when he had been on 50mg 04/25) -lowered his lithium to 300mg bid due to CKD3 , -lowered gabapentin to 600 tid (from 800) gabapentin also goes thru kidneys- and pt is sleepy and snoring -decreased back to sertraline to 50mg -lowering his pm clonazepam over weekend due to sleep apneic like pattern- Hospital course: 05/02 Patient reports that he is feeling really good, good mood and hopeful. Says that when he came in he was feeling uncontrolled and in a bad condition but now feels medications are right and he is doing well. Denies any AVH or any SI. Discussed cocaine abuse and he says he took cocaine only because he felt down and was otherwise sober for 11 years; however he is still thinking he would benefit from a program for substance abuse. Also discussed stopping naproxen since he is on lithium with which he agrees also given CKD -patient creatinine bumped up however it remains similar to baseline -no dizziness or blurred vision -will keep current regimen as patient says he is feeling better 05/03 patient reports he is feeling a little down today though does not know why; agrees to increase Latuda; acknowledged that he abuses heroin multiple times a week -placed addiction consult Patient remains in good behavioral and impulse control, appropriate with peers and staff Patient is stable on current medication regimen 05/04/25: Meet with patient with the track laying equipment operator in exam room. Report anxiety a 3/10 and depression a 4/10. Sleep and appetite are good. Denies SI/SIB/HI. Report he saw couple of things and heard the voices talking but I did not talk to them in his room last night but not at this current time. He would like to go to treatment program for aftercare. Patient shares story about his that has made him depressed. Report it was a quick for only 3 months and he is still in the process of . He remains angry at this marriage as he spent a lot of money into the wedding. SW sent out referral to [facility], pending result. Also met with addition team. Per addition team note: Risk reduction discussed. Encouraged patient to remain connected to [facility] [employer] No evidence of opioid use or opioid use disorder--no indication for MOUD at this time Plan: CV Q 15 minute checks Increased Latuda to 80 mg -sertraline back to 75 mg (on review he was put on 150mg sertraline on admission 04/29 when he had been on 50mg 04/25) -lowered his lithium to 300mg bid due to CKD3 , -lowered gabapentin to 600 tid (from 800) gabapentin also goes thru kidneys- and pt is sleepy and snoring -decreased back to sertraline to 50mg -lowering his pm clonazepam over weekend due to sleep apneic like pattern- Medical comorbidities HTN Continue amlodipine HLD Continue fenofibrate CKD3 Baseline creatinine 1.6-1.8 Likely FRANKIE, undiagnosed Follow up outpatient for sleep study Patient educated on: medication risk/benefits, substance abuse and therapeutic strategies Informed Consent: understands and further education needed Reason for continued inpatient stay Substantial Risk for: med/psych decompensation Time Spent With Patient Time: Total time managing care of this patient today ____ minutes.
[2025-05-04 20:00] VITALS: BP 157/97; PULSE 92; TEMP 37.1; O2SAT 97
[2025-05-05 07:00] VITALS: BMI 42.5
[2025-05-05 08:50] VITALS: BP 157/86; PULSE 85; RESP 16; TEMP 36.4; O2SAT 96
--- NOTE | 2025-05-05 16:46 | HO.PSYCHPN ---
Subjective Subjective Date of Service: 05/05/25 Reason For Visit: SI Subjective Notes: Conditional Voluntary Healthcare Proxy: No Guardianship: No Medical Problems Affecting Mental Status: No Interim History: Medical record and nursing notes reviewed; case discussed during rounds with team/nursing staff, and met with patient for supportive therapy/psychoeducation, as well as medication management. Meet with patient via translation device services. Patient reports feeling sad today but do not know why. He hopes the referall are good and able to get to program. Reviewed with patient regarding and reason for refusing Latuda yesterday. Report that [place] does not do anything for him. Educate patient that if he does not take it consistently, the voices and depression probably will get worse. Educate patient to take meds with food and effectiveness is pending as dose recently increased. Report hearing voices yesterday but he does not talk to the voices. He appears to be sad and depressed, quiet, not bright as he usually is. No other behavior. Facial skin improved. No red spot or rash observed. Change Hydrocortisone to PRN. Medication Compliance: No (Refused Latuda and Hydrocortisone yesterday) Side effects from medications: No Attending Groups: Intermittent Review of Systems Acute medical concerns: No Medical Review of Systems: unchanged Review of Systems Constitutional: Reports as per HPI and Reports no additional constitutional complaints Mental Status Exam Mental Status Exam Narrative: Pt is alert and oriented; behavior is cooperative, isolative, calm; patient is not in distress; dressed in casual attire, kempt hair and adequate hygiene; mood is described as sad , affect congruent; eye contact appropriate; Speech is normal rate, volume and prosody and not pressured; no psychomotor agitation/retardation present; thought process is organized and goal directed; Thought content is on tx; otherwise pertinent to relevant topics and without any delusional content, paranoid ideations or grandiosity; denies any SI/HI. Report AH but not talk back to them. No command hallucination in nature. Patients insight and judgment appear intact. Diagnostics Vital Signs (24Hr): Vital Signs - 24 hr 05/04/25 20:00 05/05/25 08:50 Temperature 98.7 F 97.6 F Pulse Rate 92 85 Respiratory Rate 16 Blood Pressure 157/97 H 157/86 H Pulse Oximetry 97 96 Oxygen Delivery Method Room Air Room Air BMI result Body Mass Index 42.5 Labs 05/01/25 14:29 Medications Medications Current Medications Acetaminophen (Acetaminophen 325 Mg Tablet) 650 mg PO Q6H PRN PRN Reason: Headache/Pain, Scale 1-10 Last Admin: 05/01/25 13:50 Dose: 650 mg Al Hydroxide/Mg Hydroxide (Magnesium Hydrox/Alum Hydrox 30 Ml Oral.Susp) 30 ml PO Q6H PRN PRN Reason: Heartburn/Nausea Amlodipine Besylate (Amlodipine Besylate 5 Mg Tablet) 5 mg PO DAILY JOSEFA; Protocol Last Admin: 05/05/25 09:05 Dose: 5 mg Clonazepam (Clonazepam 0.5 Mg Tablet) 1.5 mg PO DAILY JOSEFA Last Admin: 05/05/25 09:05 Dose: 1.5 mg Clonazepam (Clonazepam 1 Mg Tablet) 1 mg PO BEDTIME JOSEFA Last Admin: 05/04/25 21:12 Dose: 1 mg Doxepin HCl (Doxepin Hcl 25 Mg Capsule) 50 mg PO BEDTIME JOSEFA Last Admin: 05/04/25 21:11 Dose: 50 mg Gabapentin (Gabapentin 300 Mg Capsule) 600 mg PO TID JOSEFA Last Admin: 05/05/25 15:27 Dose: 600 mg Hydrocortisone (Hydrocortisone 1 % Cream 28.35 Gm Tube) 1 appl TOPICAL BID PRN; Protocol PRN Reason: rash Hydroxyzine HCl (Hydroxyzine Hcl 25 Mg Tablet) 25 mg PO Q6H PRN PRN Reason: mild anxiety Last Admin: 04/29/25 19:20 Dose: 25 mg [place] Carbonate ([place] Carbonate 300 Mg Capsule) 300 mg PO DAILY JOSEFA On Hold: 05/01/25 14:16 Last Admin: 05/01/25 08:20 Dose: 300 mg [place] Carbonate ([place] Carbonate 300 Mg Capsule) 300 mg PO BEDTIME JOSEFA On Hold: 05/01/25 21:00 Lurasidone HCl (Lurasidone Hcl 80 Mg Tablet) 80 mg PO BEDTIME JOSEFA Last Admin: 05/04/25 21:12 Dose: Not Given Magnesium Hydroxide (Milk Of Magnesia 30 Ml Oral.Susp) 30 ml PO DAILY PRN PRN Reason: Constipation Melatonin (Melatonin 3 Mg Tablet) 6 mg PO BEDTIME JOSEFA Last Admin: 05/04/25 21:12 Dose: 6 mg Nicotine Polacrilex (Nicotine Polacrilex 2 Mg Gum) 2 mg BUCCAL Q2H PRN PRN Reason: Nicotine Cravings Sertraline HCl (Sertraline Hcl 25 Mg Tablet) 75 mg PO DAILY [facility] Last Admin: 05/05/25 09:05 Dose: 75 mg Trazodone HCl (Trazodone Hcl 50 Mg Tablet) 50 mg PO BEDTIME MRX1 PRN PRN Reason: Insomnia Last Admin: 05/04/25 21:11 Dose: 50 mg Allergies Allergies Allergy/AdvReac Type Severity Reaction Status Date / Time No Known Allergies (No Known Allergy Verified 04/27/25 19:47 Allergies*) Assessment & Plan Assessment & Plan (1) Cocaine use disorder: Status: Acute Code(s): F14.10 - Cocaine abuse, uncomplicated Assessment and Plan: (2) PTSD (post-traumatic stress disorder): Status: Acute Code(s): F43.10 - Post-traumatic stress disorder, unspecified (3) Depression: Qualifiers: Depression Type: unspecified Qualified Code(s): F32.A - Depression, unspecified Status: Acute Code(s): F32.A - Depression, unspecified (4) CKD (chronic kidney disease) stage 3, GFR 30-59 ml/min: Status: Acute Code(s): N18.30 - Chronic kidney disease, stage 3 unspecified Plan Plan Last admission 04/19/25: Continue with home medications. Increase Latuda from 40 mg to 60 mg daily at bedtime. Given with full depression/psychosis. Continue with Klonopin 2 mg b.i.d. as home medication. We will check lithium level the next day on 04/18. Currently on total of 900 mg in divided dose. Sertraline HCl (Sertraline Hcl 50 Mg Tablet) 50 mg PO DAILY [facility] [place] Carbonate ([place] Carbonate 300 Mg Capsule) 300 mg PO DAILY@1200 [facility] [place] Carbonate ([place] Carbonate 300 Mg Capsule) 600 mg PO BEDTIME [facility] Lurasidone HCl (Lurasidone Hcl 20 Mg Tablet) 60 mg PO BEDTIME [facility] Clonazepam (Clonazepam 1 Mg Tablet) 2 mg PO BID JOSEFA Doxepin HCl (Doxepin Hcl 25 Mg Capsule) 50 mg PO BEDTIME [facility] Hospital course (This admission): Patient Feels rest of medications are correct- pt feeling less dep/anxious , denying si and NO AH! However later in day episode of dizziness , sudden blurred vision headache and tremors- meds where held, Lowered sertraline back to 50 mg (on review he was put on 150mg sertraline on admission 04/29 when he had been on 50mg 04/25) -lowered his lithium to 300mg bid due to CKD3 , -lowered gabapentin to 600 tid (from 800) gabapentin also goes thru kidneys- and pt is sleepy and snoring -decreased back to sertraline to 50mg -lowering his pm clonazepam over weekend due to sleep apneic like pattern- Hospital course: 05/02 Patient reports that he is feeling really good, good mood and hopeful. Says that when he came in he was feeling uncontrolled and in a bad condition but now feels medications are right and he is doing well. Denies any AVH or any SI. Discussed cocaine abuse and he says he took cocaine only because he felt down and was otherwise sober for 11 years; however he is still thinking he would benefit from a program for substance abuse. Also discussed stopping naproxen since he is on lithium with which he agrees also given CKD -patient creatinine bumped up however it remains similar to baseline -no dizziness or blurred vision -will keep current regimen as patient says he is feeling better 05/03 patient reports he is feeling a little down today though does not know why; agrees to increase Latuda; acknowledged that he abuses heroin multiple times a week -placed addiction consult Patient remains in good behavioral and impulse control, appropriate with peers and staff Patient is stable on current medication regimen 05/04/25: Meet with patient with the director of research in exam room. Report anxiety a 3/10 and depression a 4/10. Sleep and appetite are good. Denies SI/SIB/HI. Report he saw couple of things and heard the voices talking but I did not talk to them in his room last night but not at this current time. He would like to go to treatment program for aftercare. Patient shares story about his that has made him depressed. Report it was a quick for only 3 months and he is still in the process of . He remains angry at this marriage as he spent a lot of money into the wedding. SW sent out referral to [facility], pending result. Also met with addition team. Per addition team note: Risk reduction discussed. 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 Patient reports feeling sad today but do not know why. He hopes the referall are good and able to get to program. Reviewed with patient regarding and reason for refusing Latuda yesterday. Report that Laila does not do anything for him. Educate patient that if he does not take it consistently, the voices and depression probably will get worse. Educate patient to take meds with food and effectiveness is pending as dose recently increased. Report hearing voices yesterday but he does not talk to the voices. He appears to be sad and depressed, quiet, not bright as he usually is. No other behavior. Facial skin improved. No red spot or rash observed. Change Hydrocortisone to PRN. Per : pending result from [facility]. Will also send referral out to [facility]. Plan: CV Q 15 minute checks Increased Latuda to 80 mg -sertraline back to 75 mg (on review he was put on 150mg sertraline on admission 04/29 when he had been on 50mg 04/25) -lowered his lithium to 300mg bid due to CKD3 , -lowered gabapentin to 600 tid (from 800) gabapentin also goes thru kidneys- and pt is sleepy and snoring -decreased back to sertraline to 50mg -lowering his pm clonazepam over weekend due to sleep apneic like pattern- Medical comorbidities HTN Continue amlodipine HLD Continue fenofibrate CKD3 Baseline creatinine 1.6-1.8 Likely FRANKIE, undiagnosed Follow up outpatient for sleep study Patient educated on: diagnosis, medication risk/benefits, substance abuse and therapeutic strategies Informed Consent: understands and further education needed Reason for continued inpatient stay Substantial Risk for: med/psych decompensation Time Spent With Patient Time: Total time managing care of this patient today ____ minutes.
[2025-05-05 20:00] VITALS: BP 133/75; PULSE 85; RESP 15; TEMP 36.4; O2SAT 97
[2025-05-06 09:00] VITALS: BP 124/62; PULSE 71; TEMP 35.9; O2SAT 96
[2025-05-06] MEDS: Hydrocortisone 1 % Cream 28.35 GM TUBE 1 APPL TOPICAL (09:50)
--- NOTE | 2025-05-06 19:45 | HO.PSYCHPN ---
Subjective Subjective Date of Service: 05/06/25 Reason For Visit: SI Subjective Notes: Conditional Voluntary Healthcare Proxy: No Guardianship: No Medical Problems Affecting Mental Status: No Interim History: Medical record and nursing notes reviewed; case discussed during rounds with team/nursing staff, and met with patient for supportive therapy/psychoeducation, as well as medication management. Meet with patient with team include MARCIA, RN and spanish interpreter/translator. Patient reports phone assessment with RCA yesterday went well motivated . MARCIA reminds patient that referral also sent out to [facility] with pending results. Report improving in anxiety and depression but more anxious at night. Report sleeping good and no issues with appetite. Patient says I do not heave voices but I see them . Patient hears them taking, they looked at me and laugh but patient says he was able to ignore the voices. Reviewed [place] level which is WNL. Slept for 8 hours, listen to music as coping skills. Patient appears much calmer this time compared to last time when he was on M3 last admission. Feeling like he is on depressive side now. Encourage medication compliant especially with [place] which he did take it yesterday. Medication Compliance: Yes Side effects from medications: No Attending Groups: Intermittent Review of Systems Acute medical concerns: No Medical Review of Systems: unchanged Review of Systems Constitutional: Reports as per HPI and Reports no additional constitutional complaints Mental Status Exam Mental Status Exam Narrative: Pt is alert and oriented; behavior is cooperative, isolative, calm; patient is not in distress; dressed in casual attire, kempt hair and adequate hygiene; mood is described as better , affect congruent; eye contact appropriate; Speech is normal rate, volume and prosody and not pressured; no psychomotor agitation/retardation present; thought process is organized and goal directed; Thought content is on tx; otherwise pertinent to relevant topics and without any delusional content, paranoid ideations or grandiosity; denies any SI/HI. Report AH but not talk back to them. No command hallucination in nature. Patients insight and judgment appear intact. Diagnostics Vital Signs (24Hr): Vital Signs - 24 hr 05/05/25 20:00 05/06/25 09:00 Temperature 97.5 F 96.6 F L Pulse Rate 85 71 Respiratory Rate 15 Blood Pressure 133/75 124/62 Pulse Oximetry 97 96 Oxygen Delivery Method Room Air BMI result Body Mass Index 42.5 Labs 05/01/25 14:29 Medications Medications Current Medications Acetaminophen (Acetaminophen 325 Mg Tablet) 650 mg PO Q6H PRN PRN Reason: Headache/Pain, Scale 1-10 Last Admin: 05/01/25 13:50 Dose: 650 mg Al Hydroxide/Mg Hydroxide (Magnesium Hydrox/Alum Hydrox 30 Ml Oral.Susp) 30 ml PO Q6H PRN PRN Reason: Heartburn/Nausea Amlodipine Besylate (Amlodipine Besylate 5 Mg Tablet) 5 mg PO DAILY JOSEFA; Protocol Last Admin: 05/06/25 09:23 Dose: 5 mg Clonazepam (Clonazepam 0.5 Mg Tablet) 1.5 mg PO DAILY JOSEFA Last Admin: 05/06/25 08:01 Dose: 1.5 mg Clonazepam (Clonazepam 1 Mg Tablet) 1 mg PO BEDTIME JOSEFA Last Admin: 05/05/25 21:28 Dose: 1 mg Doxepin HCl (Doxepin Hcl 25 Mg Capsule) 50 mg PO BEDTIME JOSEFA Last Admin: 05/05/25 21:28 Dose: 50 mg Gabapentin (Gabapentin 300 Mg Capsule) 600 mg PO TID JOSEFA Last Admin: 05/06/25 14:55 Dose: 600 mg Hydrocortisone (Hydrocortisone 1 % Cream 28.35 Gm Tube) 1 appl TOPICAL BID PRN; Protocol PRN Reason: rash Last Admin: 05/06/25 09:50 Dose: 1 appl Hydroxyzine HCl (Hydroxyzine Hcl 25 Mg Tablet) 25 mg PO Q6H PRN PRN Reason: mild anxiety Last Admin: 04/29/25 19:20 Dose: 25 mg [place] Carbonate ([place] Carbonate 300 Mg Capsule) 300 mg PO DAILY JOSEFA On Hold: 05/01/25 14:16 Last Admin: 05/01/25 08:20 Dose: 300 mg [place] Carbonate ([place] Carbonate 300 Mg Capsule) 300 mg PO BEDTIME JOSEFA On Hold: 05/01/25 21:00 Lurasidone HCl (Lurasidone Hcl 80 Mg Tablet) 80 mg PO BEDTIME JOSEFA Last Admin: 05/05/25 21:28 Dose: 80 mg Magnesium Hydroxide (Milk Of Magnesia 30 Ml Oral.Susp) 30 ml PO DAILY PRN PRN Reason: Constipation Melatonin (Melatonin 3 Mg Tablet) 6 mg PO BEDTIME JOSEFA Last Admin: 05/05/25 21:28 Dose: 6 mg Nicotine Polacrilex (Nicotine Polacrilex 2 Mg Gum) 2 mg BUCCAL Q2H PRN PRN Reason: Nicotine Cravings Sertraline HCl (Sertraline Hcl 25 Mg Tablet) 75 mg PO DAILY [facility] Last Admin: 05/06/25 09:23 Dose: 75 mg Trazodone HCl (Trazodone Hcl 50 Mg Tablet) 50 mg PO BEDTIME MRX1 PRN PRN Reason: Insomnia Last Admin: 05/05/25 21:29 Dose: 50 mg Allergies Allergies Allergy/AdvReac Type Severity Reaction Status Date / Time No Known Allergies (No Known Allergy Verified 04/27/25 19:47 Allergies*) Assessment & Plan Assessment & Plan (1) Cocaine use disorder: Status: Acute Code(s): F14.10 - Cocaine abuse, uncomplicated Assessment and Plan: (2) PTSD (post-traumatic stress disorder): Status: Acute Code(s): F43.10 - Post-traumatic stress disorder, unspecified (3) Depression: Qualifiers: Depression Type: unspecified Qualified Code(s): F32.A - Depression, unspecified Status: Acute Code(s): F32.A - Depression, unspecified (4) CKD (chronic kidney disease) stage 3, GFR 30-59 ml/min: Status: Acute Code(s): N18.30 - Chronic kidney disease, stage 3 unspecified Plan Plan Last admission 04/19/25: Continue with home medications. Increase Latuda from 40 mg to 60 mg daily at bedtime. Given with full depression/psychosis. Continue with Klonopin 2 mg b.i.d. as home medication. We will check lithium level the next day on 04/18. Currently on total of 900 mg in divided dose. Sertraline HCl (Sertraline Hcl 50 Mg Tablet) 50 mg PO DAILY JOSEFA [place] Carbonate ([place] Carbonate 300 Mg Capsule) 300 mg PO DAILY@1200 JOSEFA [place] Carbonate ([place] Carbonate 300 Mg Capsule) 600 mg PO BEDTIME JOSEFA Lurasidone HCl (Lurasidone Hcl 20 Mg Tablet) 60 mg PO BEDTIME JOSEFA Clonazepam (Clonazepam 1 Mg Tablet) 2 mg PO BID JOSEFA Doxepin HCl (Doxepin Hcl 25 Mg Capsule) 50 mg PO BEDTIME [facility] Hospital course (This admission): Patient Feels rest of medications are correct- pt feeling less dep/anxious , denying si and NO AH! However later in day episode of dizziness , sudden blurred vision headache and tremors- meds where held, Lowered sertraline back to 50 mg (on review he was put on 150mg sertraline on admission 04/29 when he had been on 50mg 04/25) -lowered his lithium to 300mg bid due to CKD3 , -lowered gabapentin to 600 tid (from 800) gabapentin also goes thru kidneys- and pt is sleepy and snoring -decreased back to sertraline to 50mg -lowering his pm clonazepam over weekend due to sleep apneic like pattern- Hospital course: 05/02 Patient reports that he is feeling really good, good mood and hopeful. Says that when he came in he was feeling uncontrolled and in a bad condition but now feels medications are right and he is doing well. Denies any AVH or any SI. Discussed cocaine abuse and he says he took cocaine only because he felt down and was otherwise sober for 11 years; however he is still thinking he would benefit from a program for substance abuse. Also discussed stopping naproxen since he is on lithium with which he agrees also given CKD -patient creatinine bumped up however it remains similar to baseline -no dizziness or blurred vision -will keep current regimen as patient says he is feeling better 05/03 patient reports he is feeling a little down today though does not know why; agrees to increase Latuda; acknowledged that he abuses heroin multiple times a week -placed addiction consult Patient remains in good behavioral and impulse control, appropriate with peers and staff Patient is stable on current medication regimen 05/04/25: Meet with patient with the spanish interpreter/translator in exam room. Report anxiety a 3/10 and depression a 4/10. Sleep and appetite are good. Denies SI/SIB/HI. Report he saw couple of things and heard the voices talking but I did not talk to them in his room last night but not at this current time. He would like to go to treatment program for aftercare. Patient shares story about his that has made him depressed. Report it was a quick for only 3 months and he is still in the process of . He remains angry at this marriage as he spent a lot of money into the wedding. SW sent out referral to [facility], pending result. Also met with addition team. Per addition team note: Risk reduction discussed. 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 Patient reports feeling sad today but do not know why. He hopes the referall are good and able to get to program. Reviewed with patient regarding and reason for refusing Latuda yesterday. Report that Laila does not do anything for him. Educate patient that if he does not take it consistently, the voices and depression probably will get worse. Educate patient to take meds with food and effectiveness is pending as dose recently increased. Report hearing voices yesterday but he does not talk to the voices. He appears to be sad and depressed, quiet, not bright as he usually is. No other behavior. Facial skin improved. No red spot or rash observed. Change Hydrocortisone to PRN. Per MARCIA: pending result from [facility]. Will also send referral out to [facility]. 05/06/25: Meet with patient with team include MARCIA, RN and spanish interpreter/translator. Patient reports phone assessment with RCA yesterday went well motivated . MARCIA reminds patient that referral also sent out to [facility] with pending results. Report improving in anxiety and depression but more anxious at night. Report sleeping good and no issues with appetite. Patient says I do not heave voices but I see them . Patient hears them taking, they looked at me and laugh but patient says he was able to ignore the voices. Reviewed [place] level which is WNL. Slept for 8 hours, listen to music as coping skills. Patient appears much calmer this time compared to last time when he was on M3 last admission. Feeling like he is on depressive side now. Encourage medication compliant especially with [place] which he did take it yesterday. Confirmed that last NILDA use was almost 3 weeks ago. Plan: CV Q 15 minute checks Increased Latuda to 80 mg -sertraline back to 75 mg (on review he was put on 150mg sertraline on admission 04/29 when he had been on 50mg 04/25) -lowered his lithium to 300mg bid due to CKD3 , -lowered gabapentin to 600 tid (from 800) gabapentin also goes thru kidneys- and pt is sleepy and snoring -decreased back to sertraline to 50mg -lowering his pm clonazepam over weekend due to sleep apneic like pattern- Medical comorbidities HTN Continue amlodipine HLD Continue fenofibrate CKD3 Baseline creatinine 1.6-1.8 Likely FRANKIE, undiagnosed Follow up outpatient for sleep study Patient educated on: diagnosis, medication risk/benefits, substance abuse and therapeutic strategies Informed Consent: understands Reason for continued inpatient stay Substantial Risk for: med/psych decompensation Time Spent With Patient Time: Total time managing care of this patient today ____ minutes.
[2025-05-06 20:25] VITALS: BP 134/83; PULSE 87; RESP 16; TEMP 36.2; O2SAT 98
[2025-05-07 09:24] VITALS: BP 127/67
--- NOTE | 2025-05-07 16:57 | HO.PSYCHPN ---
Subjective Subjective Date of Service: 05/07/25 Reason For Visit: SI Subjective Notes: Conditional Voluntary Healthcare Proxy: No Guardianship: No Medical Problems Affecting Mental Status: No Interim History: Medical record and nursing notes reviewed; case discussed during rounds with team/nursing staff, and met with patient for supportive therapy/psychoeducation, as well as medication management. Meet with patient via brand representative service ID # [id number]. Patient slept for 8 hours, was compliant with meds. Mood is sad and missing his family. Family in [place], he usually calls family which made him happier. Report anxiety and depression. Hearing voices but denies command in nature. Patient did not attend groups. Medication Compliance: Yes Side effects from medications: No Attending Groups: No Review of Systems Acute medical concerns: No Medical Review of Systems: unchanged Review of Systems Constitutional: Reports as per HPI and Reports no additional constitutional complaints Mental Status Exam Mental Status Exam Narrative: Pt is alert and oriented; behavior is cooperative, isolative, calm; patient is not in distress; dressed in casual attire, kempt hair and adequate hygiene; mood is described as sad , affect congruent; eye contact appropriate; Speech is normal rate, volume and prosody and not pressured; no psychomotor agitation/retardation present; thought process is organized and goal directed; Thought content is on tx; otherwise pertinent to relevant topics and without any delusional content, paranoid ideations or grandiosity; denies any SI/HI. Report AH but not talk back to them. No command hallucination in nature. Patients insight and judgment appear intact. Diagnostics Vital Signs (24Hr): Vital Signs - 24 hr 05/06/25 20:25 05/07/25 09:24 Temperature 97.2 F Pulse Rate 87 Respiratory Rate 16 Blood Pressure 134/83 127/67 Pulse Oximetry 98 Oxygen Delivery Method Room Air BMI result Body Mass Index 42.5 Labs 05/01/25 14:29 Medications Medications Current Medications Acetaminophen (Acetaminophen 325 Mg Tablet) 650 mg PO Q6H PRN PRN Reason: Headache/Pain, Scale 1-10 Last Admin: 05/01/25 13:50 Dose: 650 mg Al Hydroxide/Mg Hydroxide (Magnesium Hydrox/Alum Hydrox 30 Ml Oral.Susp) 30 ml PO Q6H PRN PRN Reason: Heartburn/Nausea Amlodipine Besylate (Amlodipine Besylate 5 Mg Tablet) 5 mg PO DAILY JOSEFA; Protocol Last Admin: 05/07/25 09:24 Dose: 5 mg Clonazepam (Clonazepam 0.5 Mg Tablet) 1.5 mg PO DAILY JOSEFA Last Admin: 05/07/25 09:28 Dose: 1.5 mg Clonazepam (Clonazepam 1 Mg Tablet) 1 mg PO BEDTIME JOSEFA Last Admin: 05/06/25 20:40 Dose: 1 mg Doxepin HCl (Doxepin Hcl 25 Mg Capsule) 50 mg PO BEDTIME JOSEFA Last Admin: 05/06/25 20:40 Dose: 50 mg Gabapentin (Gabapentin 300 Mg Capsule) 600 mg PO TID JOSEFA Last Admin: 05/07/25 16:16 Dose: 600 mg Hydrocortisone (Hydrocortisone 1 % Cream 28.35 Gm Tube) 1 appl TOPICAL BID PRN; Protocol PRN Reason: rash Last Admin: 05/06/25 09:50 Dose: 1 appl Hydroxyzine HCl (Hydroxyzine Hcl 25 Mg Tablet) 25 mg PO Q6H PRN PRN Reason: mild anxiety Last Admin: 04/29/25 19:20 Dose: 25 mg [place] Carbonate ([place] Carbonate 300 Mg Capsule) 300 mg PO DAILY JOSEFA On Hold: 05/01/25 14:16 Last Admin: 05/01/25 08:20 Dose: 300 mg [place] Carbonate ([place] Carbonate 300 Mg Capsule) 300 mg PO BEDTIME JOSEFA On Hold: 05/01/25 21:00 Lurasidone HCl (Lurasidone Hcl 80 Mg Tablet) 80 mg PO BEDTIME JOSEFA Last Admin: 05/06/25 20:40 Dose: 80 mg Magnesium Hydroxide (Milk Of Magnesia 30 Ml Oral.Susp) 30 ml PO DAILY PRN PRN Reason: Constipation Melatonin (Melatonin 3 Mg Tablet) 6 mg PO BEDTIME JOSEFA Last Admin: 05/06/25 20:40 Dose: 6 mg Nicotine Polacrilex (Nicotine Polacrilex 2 Mg Gum) 2 mg BUCCAL Q2H PRN PRN Reason: Nicotine Cravings Sertraline HCl (Sertraline Hcl 25 Mg Tablet) 75 mg PO DAILY JOSEFA Last Admin: 05/07/25 09:25 Dose: 75 mg Trazodone HCl (Trazodone Hcl 50 Mg Tablet) 50 mg PO BEDTIME MRX1 PRN PRN Reason: Insomnia Last Admin: 05/05/25 21:29 Dose: 50 mg Allergies Allergies Allergy/AdvReac Type Severity Reaction Status Date / Time No Known Allergies (No Known Allergy Verified 04/27/25 19:47 Allergies*) Assessment & Plan Assessment & Plan (1) Cocaine use disorder: Status: Acute Code(s): F14.10 - Cocaine abuse, uncomplicated Assessment and Plan: (2) PTSD (post-traumatic stress disorder): Status: Acute Code(s): F43.10 - Post-traumatic stress disorder, unspecified (3) Depression: Qualifiers: Depression Type: unspecified Qualified Code(s): F32.A - Depression, unspecified Status: Acute Code(s): F32.A - Depression, unspecified (4) CKD (chronic kidney disease) stage 3, GFR 30-59 ml/min: Status: Acute Code(s): N18.30 - Chronic kidney disease, stage 3 unspecified Plan Plan Last admission 04/19/25: Continue with home medications. Increase Latuda from 40 mg to 60 mg daily at bedtime. Given with full depression/psychosis. Continue with Klonopin 2 mg b.i.d. as home medication. We will check lithium level the next day on 04/18. Currently on total of 900 mg in divided dose. Sertraline HCl (Sertraline Hcl 50 Mg Tablet) 50 mg PO DAILY JOSEFA [place] Carbonate ([place] Carbonate 300 Mg Capsule) 300 mg PO DAILY@1200 JOSEFA [place] Carbonate ([place] Carbonate 300 Mg Capsule) 600 mg PO BEDTIME JOSEFA Lurasidone HCl (Lurasidone Hcl 20 Mg Tablet) 60 mg PO BEDTIME JOSEFA Clonazepam (Clonazepam 1 Mg Tablet) 2 mg PO BID JOSEFA Doxepin HCl (Doxepin Hcl 25 Mg Capsule) 50 mg PO BEDTIME JOSEFA Hospital course (This admission): Patient Feels rest of medications are correct- pt feeling less dep/anxious , denying si and NO AH! However later in day episode of dizziness , sudden blurred vision headache and tremors- meds where held, Lowered sertraline back to 50 mg (on review he was put on 150mg sertraline on admission 04/29 when he had been on 50mg 04/25) -lowered his lithium to 300mg bid due to CKD3 , -lowered gabapentin to 600 tid (from 800) gabapentin also goes thru kidneys- and pt is sleepy and snoring -decreased back to sertraline to 50mg -lowering his pm clonazepam over weekend due to sleep apneic like pattern- Hospital course: 05/02 Patient reports that he is feeling really good, good mood and hopeful. Says that when he came in he was feeling uncontrolled and in a bad condition but now feels medications are right and he is doing well. Denies any AVH or any SI. Discussed cocaine abuse and he says he took cocaine only because he felt down and was otherwise sober for 11 years; however he is still thinking he would benefit from a program for substance abuse. Also discussed stopping naproxen since he is on lithium with which he agrees also given CKD -patient creatinine bumped up however it remains similar to baseline -no dizziness or blurred vision -will keep current regimen as patient says he is feeling better 05/03 patient reports he is feeling a little down today though does not know why; agrees to increase Latuda; acknowledged that he abuses heroin multiple times a week -placed addiction consult Patient remains in good behavioral and impulse control, appropriate with peers and staff Patient is stable on current medication regimen 05/04/25: Meet with patient with the brand representative in exam room. Report anxiety a 3/10 and depression a 4/10. Sleep and appetite are good. Denies SI/SIB/HI. Report he saw couple of things and heard the voices talking but I did not talk to them in his room last night but not at this current time. He would like to go to treatment program for aftercare. Patient shares story about his that has made him depressed. Report it was a quick for only 3 months and he is still in the process of . He remains angry at this marriage as he spent a lot of money into the wedding. SW sent out referral to [facility], pending result. Also met with addition team. Per addition team note: Risk reduction discussed. Encouraged patient to remain connected to [employer] Agent No evidence of opioid use or opioid use disorder--no indication for MOUD at this time 05/05/25: Meet with patient via [employer] device services. Patient reports feeling sad today but do not know why. He hopes the referall are good and able to get to program. Reviewed with patient regarding and reason for refusing Latuda yesterday. Report that [place] does not do anything for him. Educate patient that if he does not take it consistently, the voices and depression probably will get worse. Educate patient to take meds with food and effectiveness is pending as dose recently increased. Report hearing voices yesterday but he does not talk to the voices. He appears to be sad and depressed, quiet, not bright as he usually is. No other behavior. Facial skin improved. No red spot or rash observed. Change Hydrocortisone to PRN. Per MARCIA: pending result from [facility]. Will also send referral out to [facility]. 05/06/25: Meet with patient with team include MARCIA, RN and brand representative. Patient reports phone assessment with RCA yesterday went well motivated . MARCIA reminds patient that referral also sent out to [facility] with pending results. Report improving in anxiety and depression but more anxious at night. Report sleeping good and no issues with appetite. Patient says I do not heave voices but I see them . Patient hears them taking, they looked at me and laugh but patient says he was able to ignore the voices. Reviewed [place] level which is WNL. Slept for 8 hours, listen to music as coping skills. Patient appears much calmer this time compared to last time when he was on M3 last admission. Feeling like he is on depressive side now. Encourage medication compliant especially with [place] which he did take it yesterday. Confirmed that last NILDA use was almost 3 weeks ago. 05/07/25: Meet with patient via brand representative service ID # [id number]. Patient slept for 8 hours, was compliant with meds. Mood is sad and missing his family. Family in [place], he usually calls family which made him happier. Report anxiety and depression. Hearing voices but denies command in nature. Patient did not attend groups. Plan: CV Q 15 minute checks Increased Latuda to 80 mg -sertraline back to 75 mg (on review he was put on 150mg sertraline on admission 04/29 when he had been on 50mg 04/25) -lowered his lithium to 300mg bid due to CKD3 , -lowered gabapentin to 600 tid (from 800) gabapentin also goes thru kidneys- and pt is sleepy and snoring -decreased back to sertraline to 50mg -lowering his pm clonazepam over weekend due to sleep apneic like pattern- Medical comorbidities HTN Continue amlodipine HLD Continue fenofibrate CKD3 Baseline creatinine 1.6-1.8 Likely FRANKIE, undiagnosed Follow up outpatient for sleep study Patient educated on: medication risk/benefits and therapeutic strategies Informed Consent: understands Reason for continued inpatient stay Substantial Risk for: med/psych decompensation Time Spent With Patient Time: Total time managing care of this patient today ____ minutes.
[2025-05-07 20:29] VITALS: BP 156/92; PULSE 73; RESP 16; TEMP 37.3; O2SAT 97
[2025-05-08 08:00] VITALS: BP 121/75; PULSE 77; RESP 17; TEMP 36.6; O2SAT 97
[2025-05-08 08:57] VITALS: BP 121/75
[2025-05-08] MEDS: Hydrocortisone 1 % Cream 28.35 GM TUBE 1 APPL TOPICAL (10:06)
--- NOTE | 2025-05-08 18:44 | HO.PSYCHPN ---
Subjective Subjective Date of Service: 05/08/25 Reason For Visit: SI Subjective Notes: Conditional Voluntary Healthcare Proxy: No Guardianship: No Medical Problems Affecting Mental Status: No Interim History: Medical record and nursing notes reviewed; case discussed during rounds with team/nursing staff, and met with patient for supportive therapy/psychoeducation, as well as medication management. Met with patient with conservation science teacher ID #[id number]. Reported that he could not sleep last night. Blame it on Latuda. Perseverative on not able to sleep. Observe patient napping most of the day, on and off. Educate patient on not napping too much during daytime. Also educate patient on potential sleep apnea which affect his quality of sleep. He he wanted to have Latuda to reduce down to 60 from 80 mg. Denies voices. Very inconsistent with reports regarding sleep and mood. Remind patient that we are waiting to hear from [facility] and [facility]. We will discharge when bed is available Medication Compliance: Yes Side effects from medications: No Attending Groups: No Review of Systems Acute medical concerns: No Medical Review of Systems: unchanged Review of Systems Review of Systems Constitutional: Denies fatigue and Denies fever(s) Cardiovascular: Denies chest pain and Denies dyspnea Respiratory: Denies dyspnea Gastrointestinal: Denies abdominal pain Psychiatric: denies suicidal ideation Endocrine: Denies fatigue Yes all other systems are reviewed and are negative Mental Status Exam Mental Status Exam Narrative: Pt is alert and oriented; behavior is cooperative, calm; patient is not in distress; dressed in casual attire, kempt hair and adequate hygiene; mood is described as ok , affect congruent; eye contact appropriate; Speech is normal rate, volume and prosody and not pressured; no psychomotor agitation/retardation present; thought process is organized and goal directed; Thought content is on tx; otherwise pertinent to relevant topics and without any delusional content, paranoid ideations or grandiosity; denies any SI/HI/AVH. No command hallucination in nature. Patients insight and judgment appear intact. Diagnostics Vital Signs (24Hr): Vital Signs - 24 hr 05/07/25 20:29 05/08/25 08:00 05/08/25 08:57 Temperature 99.1 F 97.9 F Pulse Rate 73 77 Respiratory Rate 16 17 Blood Pressure 156/92 H 121/75 121/75 Pulse Oximetry 97 97 Oxygen Delivery Method Room Air Room Air BMI result Body Mass Index 42.5 Labs 05/01/25 14:29 Medications Medications Current Medications Acetaminophen (Acetaminophen 325 Mg Tablet) 650 mg PO Q6H PRN PRN Reason: Headache/Pain, Scale 1-10 Last Admin: 05/01/25 13:50 Dose: 650 mg Al Hydroxide/Mg Hydroxide (Magnesium Hydrox/Alum Hydrox 30 Ml Oral.Susp) 30 ml PO Q6H PRN PRN Reason: Heartburn/Nausea Amlodipine Besylate (Amlodipine Besylate 5 Mg Tablet) 5 mg PO DAILY JOSEFA; Protocol Last Admin: 05/08/25 08:57 Dose: 5 mg Clonazepam (Clonazepam 0.5 Mg Tablet) 1.5 mg PO DAILY JOSEFA Last Admin: 05/08/25 08:58 Dose: 1.5 mg Clonazepam (Clonazepam 1 Mg Tablet) 1 mg PO BEDTIME JOESFA Last Admin: 05/07/25 20:15 Dose: 1 mg Doxepin HCl (Doxepin Hcl 25 Mg Capsule) 50 mg PO BEDTIME JOSEFA Last Admin: 05/07/25 20:15 Dose: 50 mg Gabapentin (Gabapentin 300 Mg Capsule) 600 mg PO TID JOSEFA Last Admin: 05/08/25 16:11 Dose: 600 mg Hydrocortisone (Hydrocortisone 1 % Cream 28.35 Gm Tube) 1 appl TOPICAL BID PRN; Protocol PRN Reason: rash Last Admin: 05/08/25 10:06 Dose: 1 appl Hydroxyzine HCl (Hydroxyzine Hcl 25 Mg Tablet) 25 mg PO Q6H PRN PRN Reason: mild anxiety Last Admin: 04/29/25 19:20 Dose: 25 mg [place] Carbonate ([place] Carbonate 300 Mg Capsule) 300 mg PO DAILY JOSEFA On Hold: 05/01/25 14:16 Last Admin: 05/01/25 08:20 Dose: 300 mg [place] Carbonate ([place] Carbonate 300 Mg Capsule) 300 mg PO BEDTIME JOSEFA On Hold: 05/01/25 21:00 Lurasidone HCl (Lurasidone Hcl 20 Mg Tablet) 60 mg PO BEDTIME JOSEFA Magnesium Hydroxide (Milk Of Magnesia 30 Ml Oral.Susp) 30 ml PO DAILY PRN PRN Reason: Constipation Melatonin (Melatonin 3 Mg Tablet) 6 mg PO BEDTIME JOSEFA Last Admin: 05/07/25 20:15 Dose: 6 mg Nicotine Polacrilex (Nicotine Polacrilex 2 Mg Gum) 2 mg BUCCAL Q2H PRN PRN Reason: Nicotine Cravings Sertraline HCl (Sertraline Hcl 25 Mg Tablet) 75 mg PO DAILY [facility] Last Admin: 05/08/25 08:57 Dose: 75 mg Trazodone HCl (Trazodone Hcl 50 Mg Tablet) 50 mg PO BEDTIME MRX1 PRN PRN Reason: Insomnia Last Admin: 05/05/25 21:29 Dose: 50 mg Allergies Allergies Allergy/AdvReac Type Severity Reaction Status Date / Time No Known Allergies (No Known Allergy Verified 04/27/25 19:47 Allergies*) Assessment & Plan Assessment & Plan (1) Cocaine use disorder: Status: Acute Code(s): F14.10 - Cocaine abuse, uncomplicated Assessment and Plan: (2) PTSD (post-traumatic stress disorder): Status: Acute Code(s): F43.10 - Post-traumatic stress disorder, unspecified (3) Depression: Qualifiers: Depression Type: unspecified Qualified Code(s): F32.A - Depression, unspecified Status: Acute Code(s): F32.A - Depression, unspecified (4) CKD (chronic kidney disease) stage 3, GFR 30-59 ml/min: Status: Acute Code(s): N18.30 - Chronic kidney disease, stage 3 unspecified Plan Plan Last admission 04/19/25: Continue with home medications. Increase Latuda from 40 mg to 60 mg daily at bedtime. Given with full depression/psychosis. Continue with Klonopin 2 mg b.i.d. as home medication. We will check lithium level the next day on 04/18. Currently on total of 900 mg in divided dose. Sertraline HCl (Sertraline Hcl 50 Mg Tablet) 50 mg PO DAILY JOSEFA [place] Carbonate ([place] Carbonate 300 Mg Capsule) 300 mg PO DAILY@1200 [facility] [place] Carbonate ([place] Carbonate 300 Mg Capsule) 600 mg PO BEDTIME JOSEFA Lurasidone HCl (Lurasidone Hcl 20 Mg Tablet) 60 mg PO BEDTIME JOSEFA Clonazepam (Clonazepam 1 Mg Tablet) 2 mg PO BID JOSEFA Doxepin HCl (Doxepin Hcl 25 Mg Capsule) 50 mg PO BEDTIME [facility] Hospital course (This admission): Patient Feels rest of medications are correct- pt feeling less dep/anxious , denying si and NO AH! However later in day episode of dizziness , sudden blurred vision headache and tremors- meds where held, Lowered sertraline back to 50 mg (on review he was put on 150mg sertraline on admission 04/29 when he had been on 50mg 04/25) -lowered his lithium to 300mg bid due to CKD3 , -lowered gabapentin to 600 tid (from 800) gabapentin also goes thru kidneys- and pt is sleepy and snoring -decreased back to sertraline to 50mg -lowering his pm clonazepam over weekend due to sleep apneic like pattern- Hospital course: 05/02 Patient reports that he is feeling really good, good mood and hopeful. Says that when he came in he was feeling uncontrolled and in a bad condition but now feels medications are right and he is doing well. Denies any AVH or any SI. Discussed cocaine abuse and he says he took cocaine only because he felt down and was otherwise sober for 11 years; however he is still thinking he would benefit from a program for substance abuse. Also discussed stopping naproxen since he is on lithium with which he agrees also given CKD -patient creatinine bumped up however it remains similar to baseline -no dizziness or blurred vision -will keep current regimen as patient says he is feeling better 05/03 patient reports he is feeling a little down today though does not know why; agrees to increase Latuda; acknowledged that he abuses heroin multiple times a week -placed addiction consult Patient remains in good behavioral and impulse control, appropriate with peers and staff Patient is stable on current medication regimen 05/04/25: Meet with patient with the conservation science teacher in exam room. Report anxiety a 3/10 and depression a 4/10. Sleep and appetite are good. Denies SI/SIB/HI. Report he saw couple of things and heard the voices talking but I did not talk to them in his room last night but not at this current time. He would like to go to treatment program for aftercare. Patient shares story about his that has made him depressed. Report it was a quick for only 3 months and he is still in the process of . He remains angry at this marriage as he spent a lot of money into the wedding. SW sent out referral to [facility], pending result. Also met with addition team. Per addition team note: Risk reduction discussed. Encouraged patient to remain connected to Rules Examiner No evidence of opioid use or opioid use disorder--no indication for MOUD at this time 05/05/25: Meet with patient via [employer] device services. Patient reports feeling sad today but do not know why. He hopes the referall are good and able to get to program. Reviewed with patient regarding and reason for refusing Latuda yesterday. Report that [place] does not do anything for him. Educate patient that if he does not take it consistently, the voices and depression probably will get worse. Educate patient to take meds with food and effectiveness is pending as dose recently increased. Report hearing voices yesterday but he does not talk to the voices. He appears to be sad and depressed, quiet, not bright as he usually is. No other behavior. Facial skin improved. No red spot or rash observed. Change Hydrocortisone to PRN. Per MARCIA: pending result from [facility]. Will also send referral out to [facility]. 05/06/25: Meet with patient with team include MARCIA, RN and conservation science teacher. Patient reports phone assessment with RCA yesterday went well motivated . SW reminds patient that referral also sent out to [facility] with pending results. Report improving in anxiety and depression but more anxious at night. Report sleeping good and no issues with appetite. Patient says I do not heave voices but I see them . Patient hears them taking, they looked at me and laugh but patient says he was able to ignore the voices. Reviewed [place] level which is WNL. Slept for 8 hours, listen to music as coping skills. Patient appears much calmer this time compared to last time when he was on M3 last admission. Feeling like he is on depressive side now. Encourage medication compliant especially with [place] which he did take it yesterday. Confirmed that last NILDA use was almost 3 weeks ago. 05/07/25: Meet with patient via conservation science teacher service ID # [id number]. Patient slept for 8 hours, was compliant with meds. Mood is sad and missing his family. Family in [place], he usually calls family which made him happier. Report anxiety and depression. Hearing voices but denies command in nature. Patient did not attend groups. 05/08/25: Met with patient with conservation science teacher ID #[id number]. Reported that he could not sleep last night. Blame it on Latuda. Seem he does not like taking Latuda. Perseverative on not able to sleep. Observe patient napping most of the day, on and off. Educate patient on not napping too much during daytime. Also educate patient on potential sleep apnea which affect his quality of sleep. He he wanted to have Latuda to reduce down to 60 from 80 mg. Denies voices. Very inconsistent with reports regarding sleep and mood. Remind patient that we are waiting to hear from [facility] and [facility]. We will discharge when bed is available Lower down on Latuda per pt request from 80mg to 60mg. Plan: CV Q 15 minute checks Decreased Latuda down to 60mg on 05/08 per patient request. -sertraline back to 75 mg (on review he was put on 150mg sertraline on admission 04/29 when he had been on 50mg 04/25) -lowered his lithium to 300mg bid due to CKD3 , -lowered gabapentin to 600 tid (from 800) gabapentin also goes thru kidneys- and pt is sleepy and snoring -decreased back to sertraline to 50mg -lowering his pm clonazepam over weekend due to sleep apneic like pattern- Medical comorbidities HTN Continue amlodipine HLD Continue fenofibrate CKD3 Baseline creatinine 1.6-1.8 Likely FRANKIE, undiagnosed Follow up outpatient for sleep study Patient educated on: diagnosis, medication risk/benefits, substance abuse and therapeutic strategies Informed Consent: understands and further education needed Reason for continued inpatient stay Substantial Risk for: med/psych decompensation Time Spent With Patient Time: Total time managing care of this patient today ____ minutes.
[2025-05-08 20:00] VITALS: BP 146/82; PULSE 78; RESP 18; TEMP 36.8; O2SAT 98
[2025-05-09 08:00] VITALS: BP 132/66; PULSE 84; RESP 18; TEMP 36.4; O2SAT 96
[2025-05-09 08:17] VITALS: BP 132/66
--- NOTE | 2025-05-09 09:18 | P.PNPSI_ITS ---
Subjective Subjective Date of Service: 05/09/25 Reason For Visit: SI Interim History: Met with patient; discussed with team; reviewed chart; seen with program arranger Qi Patient reports that his mood is good. Discussed symptoms and patient denies any actual visual hallucinations; chronically he sometimes sees shadows which he knows are not real and just ignores them; patient agrees that it is due to history of trauma. Patient and automobile and property underwriter discussed substance abuse and he says he has been using IV heroin daily for long-time; discussed MAT patient wants to get on Suboxone. Answering Service Telephone Operator reviewed risks/side effects and also how to take this medication and patient very much likes the idea and wants to start Mental Status Exam Mental Status Exam Narrative: Pt is alert and oriented; behavior is cooperative, friendly and calm; patient is not in distress; dressed in casual attire with unkempt hair but adequate hygiene; mood is described as good and affect congruent; eye contact appropriate; Speech is normal rate, volume and prosody and not pressured; no psychomotor agitation/retardation present; thought process is organized and goal directed; Thought content is on tx; otherwise pertinent to relevant topics and without any delusional content, paranoid ideations or grandiosity; denies any SI/HI. Denies AVH. Patients insight and judgment appear intact. Diagnostics Vital Signs (24Hr): Vital Signs - 24 hr 05/08/25 20:00 05/09/25 08:00 05/09/25 08:17 Temperature 98.2 F 97.5 F Pulse Rate 78 84 Respiratory Rate 18 18 Blood Pressure 146/82 H 132/66 132/66 Pulse Oximetry 98 96 Oxygen Delivery Method Room Air Room Air BMI result Body Mass Index 42.5 Labs 05/01/25 14:29 Medications Medications Current Medications Acetaminophen (Acetaminophen 325 Mg Tablet) 650 mg PO Q6H PRN PRN Reason: Headache/Pain, Scale 1-10 Last Admin: 05/01/25 13:50 Dose: 650 mg Al Hydroxide/Mg Hydroxide (Magnesium Hydrox/Alum Hydrox 30 Ml Oral.Susp) 30 ml PO Q6H PRN PRN Reason: Heartburn/Nausea Amlodipine Besylate (Amlodipine Besylate 5 Mg Tablet) 5 mg PO DAILY JOSEFA; Protocol Last Admin: 05/09/25 08:17 Dose: 5 mg Clonazepam (Clonazepam 0.5 Mg Tablet) 1.5 mg PO DAILY JOSEFA Last Admin: 05/09/25 08:17 Dose: 1.5 mg Clonazepam (Clonazepam 1 Mg Tablet) 1 mg PO BEDTIME JOSEFA Last Admin: 05/08/25 21:32 Dose: 1 mg Doxepin HCl (Doxepin Hcl 25 Mg Capsule) 50 mg PO BEDTIME JOSEFA Last Admin: 05/08/25 21:33 Dose: 50 mg Gabapentin (Gabapentin 300 Mg Capsule) 600 mg PO TID JOSEFA Last Admin: 05/09/25 08:16 Dose: 600 mg Hydrocortisone (Hydrocortisone 1 % Cream 28.35 Gm Tube) 1 appl TOPICAL BID PRN; Protocol PRN Reason: rash Last Admin: 05/08/25 10:06 Dose: 1 appl Hydroxyzine HCl (Hydroxyzine Hcl 25 Mg Tablet) 25 mg PO Q6H PRN PRN Reason: mild anxiety Last Admin: 04/29/25 19:20 Dose: 25 mg [place] Carbonate ([place] Carbonate 300 Mg Capsule) 300 mg PO DAILY JOSEFA On Hold: 05/01/25 14:16 Last Admin: 05/01/25 08:20 Dose: 300 mg [place] Carbonate ([place] Carbonate 300 Mg Capsule) 300 mg PO BEDTIME JOSEFA On Hold: 05/01/25 21:00 Lurasidone HCl (Lurasidone Hcl 20 Mg Tablet) 60 mg PO BEDTIME JOSEFA Last Admin: 05/08/25 21:32 Dose: 60 mg Magnesium Hydroxide (Milk Of Magnesia 30 Ml Oral.Susp) 30 ml PO DAILY PRN PRN Reason: Constipation Melatonin (Melatonin 3 Mg Tablet) 6 mg PO BEDTIME [facility] Last Admin: 05/08/25 21:32 Dose: 6 mg Nicotine Polacrilex (Nicotine Polacrilex 2 Mg Gum) 2 mg BUCCAL Q2H PRN PRN Reason: Nicotine Cravings Sertraline HCl (Sertraline Hcl 25 Mg Tablet) 75 mg PO DAILY [facility] Last Admin: 05/09/25 08:17 Dose: 75 mg Trazodone HCl (Trazodone Hcl 50 Mg Tablet) 50 mg PO BEDTIME MRX1 PRN PRN Reason: Insomnia Last Admin: 05/05/25 21:29 Dose: 50 mg Allergies Allergies Allergy/AdvReac Type Severity Reaction Status Date / Time No Known Allergies (No Known Allergy Verified 04/27/25 19:47 Allergies*) Assessment & Plan Assessment & Plan (1) Cocaine use disorder: Status: Acute Code(s): F14.10 - Cocaine abuse, uncomplicated Assessment and Plan: * (2) PTSD (post-traumatic stress disorder): Status: Acute Code(s): F43.10 - Post-traumatic stress disorder, unspecified (3) Depression: Qualifiers: Depression Type: unspecified Qualified Code(s): F32.A - Depression, unspecified Status: Acute Code(s): F32.A - Depression, unspecified (4) CKD (chronic kidney disease) stage 3, GFR 30-59 ml/min: Status: Acute Code(s): N18.30 - Chronic kidney disease, stage 3 unspecified Plan Plan Last admission 04/19/25: Continue with home medications. Increase Latuda from 40 mg to 60 mg daily at bedtime. Given with full depression/psychosis. Continue with Klonopin 2 mg b.i.d. as home medication. We will check lithium level the next day on 04/18. Currently on total of 900 mg in divided dose. Sertraline HCl (Sertraline Hcl 50 Mg Tablet) 50 mg PO DAILY JOSEFA [place] Carbonate ([place] Carbonate 300 Mg Capsule) 300 mg PO DAILY@1200 JOSEFA [place] Carbonate ([place] Carbonate 300 Mg Capsule) 600 mg PO BEDTIME JOSEFA Lurasidone HCl (Lurasidone Hcl 20 Mg Tablet) 60 mg PO BEDTIME JOSEFA Clonazepam (Clonazepam 1 Mg Tablet) 2 mg PO BID JOSEFA Doxepin HCl (Doxepin Hcl 25 Mg Capsule) 50 mg PO BEDTIME JOSEFA Hospital course (This admission): Patient Feels rest of medications are correct- pt feeling less dep/anxious , denying si and NO AH! However later in day episode of dizziness , sudden blurred vision headache and tremors- meds where held, Lowered sertraline back to 50 mg (on review he was put on 150mg sertraline on admission 04/29 when he had been on 50mg 04/25) -lowered his lithium to 300mg bid due to CKD3 , -lowered gabapentin to 600 tid (from 800) gabapentin also goes thru kidneys- and pt is sleepy and snoring -decreased back to sertraline to 50mg -lowering his pm clonazepam over weekend due to sleep apneic like pattern- Hospital course: 05/02 Patient reports that he is feeling really good, good mood and hopeful. Says that when he came in he was feeling uncontrolled and in a bad condition but now feels medications are right and he is doing well. Denies any AVH or any SI. Discussed cocaine abuse and he says he took cocaine only because he felt down and was otherwise sober for 11 years; however he is still thinking he would benefit from a program for substance abuse. Also discussed stopping naproxen since he is on lithium with which he agrees also given CKD -patient creatinine bumped up however it remains similar to baseline -no dizziness or blurred vision -will keep current regimen as patient says he is feeling better 05/03 patient reports he is feeling a little down today though does not know why; agrees to increase Latuda; acknowledged that he abuses heroin multiple times a week -placed addiction consult Patient remains in good behavioral and impulse control, appropriate with peers and staff Patient is stable on current medication regimen 05/04/25: Meet with patient with the synchronous motor assembler in exam room. Report anxiety a 3/10 and depression a 4/10. Sleep and appetite are good. Denies SI/SIB/HI. Report he saw couple of things and heard the voices talking but I did not talk to them in his room last night but not at this current time. He would like to go to treatment program for aftercare. Patient shares story about his that has made him depressed. Report it was a quick for only 3 months and he is still in the process of . He remains angry at this marriage as he spent a lot of money into the wedding. SW sent out referral to [facility], pending result. Also met with addition team. Per addition team note: Risk reduction discussed. Encouraged patient to remain connected to [facility] No evidence of opioid use or opioid use disorder--no indication for MOUD at this time 05/05/25: Meet with patient via [email or web address]. Patient reports feeling sad today but do not know why. He hopes the referall are good and able to get to program. Reviewed with patient regarding and reason for refusing Latuda yesterday. Report that Laila does not do anything for him. Educate patient that if he does not take it consistently, the voices and depression probably will get worse. Educate patient to take meds with food and effectiveness is pending as dose recently increased. Report hearing voices yesterday but he does not talk to the voices. He appears to be sad and depressed, quiet, not bright as he usually is. No other behavior. Facial skin improved. No red spot or rash observed. Change Hydrocortisone to PRN. Per SW: pending result from [facility]. Will also send referral out to [facility]. 05/06/25: Meet with patient with team include MARCIA, RN and synchronous motor assembler. Patient reports phone assessment with RCA yesterday went well motivated . SW reminds patient that referral also sent out to [facility] with pending results. Report improving in anxiety and depression but more anxious at night. Report sleeping good and no issues with appetite. Patient says I do not heave voices but I see them . Patient hears them taking, they looked at me and laugh but patient says he was able to ignore the voices. Reviewed [place] level which is WNL. Slept for 8 hours, listen to music as coping skills. Patient appears much calmer this time compared to last time when he was on M3 last admission. Feeling like he is on depressive side now. Encourage medication compliant especially with [place] which he did take it yesterday. Confirmed that last NILDA use was almost 3 weeks ago. 05/07/25: Meet with patient via synchronous motor assembler service ID # [id number]. Patient slept for 8 hours, was compliant with meds. Mood is sad and missing his family. Family in [place], he usually calls family which made him happier. Report anxiety and depression. Hearing voices but denies command in nature. Patient did not attend groups. 05/08/25: Met with patient with synchronous motor assembler ID #[id number]. Reported that he could not sleep last night. Blame it on Latuda. Seem he does not like taking Latuda. Perseverative on not able to sleep. Observe patient napping most of the day, on and off. Educate patient on not napping too much during daytime. Also educate patient on potential sleep apnea which affect his quality of sleep. He he wanted to have Latuda to reduce down to 60 from 80 mg. Denies voices. Very inconsistent with reports regarding sleep and mood. Remind patient that we are waiting to hear from [facility] and [facility]. We will discharge when bed is available Lower down on Latuda per pt request from 80mg to 60mg. 05/09 Patient reports that his mood is good. Discussed symptoms and patient denies any actual visual hallucinations; chronically he sometimes sees shadows which he knows are not real and just ignores them; patient agrees that it is due to history of trauma. Patient and automobile and property underwriter discussed substance abuse and he says he has been using IV heroin daily for long-time; discussed MAT patient wants to get on Suboxone. Answering Service Telephone Operator reviewed risks/side effects and also how to take this medication and patient very much likes the idea and wants to start Patient remains in good behavioral and impulse control and appropriate with peers and staff; engaged in treatment and attending groups Patient is stable on current medication regimen Plan: CV Q 15 minute checks Start Suboxone and will titrate to 8 mg daily Decreased Latuda down to 60mg on 05/08 per patient request. -sertraline back to 75 mg (on review he was put on 150mg sertraline on admission 04/29 when he had been on 50mg 04/25) -lowered his lithium to 300mg bid due to CKD3 , -lowered gabapentin to 600 tid (from 800) gabapentin also goes thru kidneys- and pt is sleepy and snoring -decreased back to sertraline to 50mg -lowering his pm clonazepam over weekend due to sleep apneic like pattern- Medical comorbidities HTN Continue amlodipine HLD Continue fenofibrate CKD3 Baseline creatinine 1.6-1.8 Likely FRANKIE, undiagnosed Follow up outpatient for sleep study Patient educated on: diagnosis, medication risk/benefits and substance abuse Informed Consent: understands Reason for continued inpatient stay Substantial Risk for: stable for discharge Time Spent With Patient Time: Total time managing care of this patient today ____ minutes.
[2025-05-09] MEDS: Buprenorphine/Naloxone 4/1 mg FILM 1 FILM SUBLINGUAL ×2 (18:30→20:39)
[2025-05-09 19:57] VITALS: BP 132/77; PULSE 82; RESP 16; TEMP 36.7; O2SAT 97
[2025-05-09 20:27] VITALS: BP 132/77; PULSE 82; RESP 16; TEMP 2.7; TEMP 36.8; O2SAT 97
[2025-05-10 08:26] VITALS: BP 128/67; PULSE 111; RESP 16; TEMP 36.9; O2SAT 95
--- NOTE | 2025-05-10 10:19 | HO.PSYCHPN ---
Subjective Subjective Date of Service: 05/10/25 Reason For Visit: SI Interim History: Met with patient; discussed with staff; seen with upkeep worker Chela Patient reports he is doing well and still hopeful to get into a program. Mood is good. Discussed Suboxone since patient found it quite sedating. Patient revised his report on how much heroin he uses and says he actually has not used heroin for over year (the day before told freelance writer he was using it daily) and thus agrees this is the reason for being sedated with Suboxone. Patient was ambivalent for awhile but eventually decided he wants to remain on Suboxone but at a low dose 2 mg b.i.d., so that he does not end up relapsing on heroin. Mental Status Exam Mental Status Exam Narrative: Pt is alert and oriented; behavior is cooperative, friendly and calm; patient is not in distress; dressed in casual attire with unkempt hair but adequate hygiene; mood is described as good and affect congruent; eye contact appropriate; Speech is normal rate, volume and prosody and not pressured; no psychomotor agitation/retardation present; thought process is organized and goal directed; Thought content is on tx; otherwise pertinent to relevant topics and without any delusional content, paranoid ideations or grandiosity; denies any SI/HI. Denies AVH. Patients insight and judgment appear intact. Diagnostics Vital Signs (24Hr): Vital Signs - 24 hr 05/09/25 19:57 05/09/25 20:27 05/10/25 08:26 Temperature 98.1 F 36.8 F L 98.5 F Pulse Rate 82 82 111 H Respiratory Rate 16 16 16 Blood Pressure 132/77 132/77 128/67 Pulse Oximetry 97 97 95 Oxygen Delivery Method Room Air Room Air Room Air BMI result Body Mass Index 42.5 Labs 05/01/25 14:29 Medications Medications Current Medications Acetaminophen (Acetaminophen 325 Mg Tablet) 650 mg PO Q6H PRN PRN Reason: Headache/Pain, Scale 1-10 Last Admin: 05/01/25 13:50 Dose: 650 mg Al Hydroxide/Mg Hydroxide (Magnesium Hydrox/Alum Hydrox 30 Ml Oral.Susp) 30 ml PO Q6H PRN PRN Reason: Heartburn/Nausea Amlodipine Besylate (Amlodipine Besylate 5 Mg Tablet) 5 mg PO DAILY JOSEFA; Protocol Last Admin: 05/10/25 08:48 Dose: 5 mg Buprenorphine/Naloxone (Buprenorphine/Naloxone 4/1 Mg Film) 1 film SUBLINGUAL BID@0900,1500 JOSEFA Doxepin HCl (Doxepin Hcl 25 Mg Capsule) 50 mg PO BEDTIME JOSEFA Last Admin: 05/09/25 20:39 Dose: 50 mg Gabapentin (Gabapentin 300 Mg Capsule) 600 mg PO TID JOSEFA Last Admin: 05/10/25 08:49 Dose: 600 mg Hydrocortisone (Hydrocortisone 1 % Cream 28.35 Gm Tube) 1 appl TOPICAL BID PRN; Protocol PRN Reason: rash Last Admin: 05/08/25 10:06 Dose: 1 appl Hydroxyzine HCl (Hydroxyzine Hcl 25 Mg Tablet) 25 mg PO Q6H PRN PRN Reason: mild anxiety Last Admin: 04/29/25 19:20 Dose: 25 mg [place] Carbonate ([place] Carbonate 300 Mg Capsule) 300 mg PO DAILY JOSEFA On Hold: 05/01/25 14:16 Last Admin: 05/01/25 08:20 Dose: 300 mg [place] Carbonate ([place] Carbonate 300 Mg Capsule) 300 mg PO BEDTIME JOSEFA On Hold: 05/01/25 21:00 Lurasidone HCl (Lurasidone Hcl 20 Mg Tablet) 60 mg PO BEDTIME JOSEFA Last Admin: 05/09/25 20:39 Dose: 60 mg Magnesium Hydroxide (Milk Of Magnesia 30 Ml Oral.Susp) 30 ml PO DAILY PRN PRN Reason: Constipation Melatonin (Melatonin 3 Mg Tablet) 6 mg PO BEDTIME JOSEFA Last Admin: 05/09/25 20:39 Dose: 6 mg Nicotine Polacrilex (Nicotine Polacrilex 2 Mg Gum) 2 mg BUCCAL Q2H PRN PRN Reason: Nicotine Cravings Sertraline HCl (Sertraline Hcl 25 Mg Tablet) 75 mg PO DAILY [facility] Last Admin: 05/10/25 08:48 Dose: 75 mg Trazodone HCl (Trazodone Hcl 50 Mg Tablet) 50 mg PO BEDTIME MRX1 PRN PRN Reason: Insomnia Last Admin: 05/05/25 21:29 Dose: 50 mg Allergies Allergies Allergy/AdvReac Type Severity Reaction Status Date / Time No Known Allergies (No Known Allergy Verified 04/27/25 19:47 Allergies*) Assessment & Plan Assessment & Plan (1) Cocaine use disorder: Status: Acute Code(s): F14.10 - Cocaine abuse, uncomplicated Assessment and Plan: (2) PTSD (post-traumatic stress disorder): Status: Acute Code(s): F43.10 - Post-traumatic stress disorder, unspecified (3) Depression: Qualifiers: Depression Type: unspecified Qualified Code(s): F32.A - Depression, unspecified Status: Acute Code(s): F32.A - Depression, unspecified (4) CKD (chronic kidney disease) stage 3, GFR 30-59 ml/min: Status: Acute Code(s): N18.30 - Chronic kidney disease, stage 3 unspecified Plan Plan Last admission 04/19/25: Continue with home medications. Increase Latuda from 40 mg to 60 mg daily at bedtime. Given with full depression/psychosis. Continue with Klonopin 2 mg b.i.d. as home medication. We will check lithium level the next day on 04/18. Currently on total of 900 mg in divided dose. Sertraline HCl (Sertraline Hcl 50 Mg Tablet) 50 mg PO DAILY JOSEFA [place] Carbonate ([place] Carbonate 300 Mg Capsule) 300 mg PO DAILY@1200 JOSEFA [place] Carbonate ([place] Carbonate 300 Mg Capsule) 600 mg PO BEDTIME JOSEFA Lurasidone HCl (Lurasidone Hcl 20 Mg Tablet) 60 mg PO BEDTIME JOSEFA Clonazepam (Clonazepam 1 Mg Tablet) 2 mg PO BID JOSEFA Doxepin HCl (Doxepin Hcl 25 Mg Capsule) 50 mg PO BEDTIME JOSEFA Hospital course (This admission): Patient Feels rest of medications are correct- pt feeling less dep/anxious , denying si and NO AH! However later in day episode of dizziness , sudden blurred vision headache and tremors- meds where held, Lowered sertraline back to 50 mg (on review he was put on 150mg sertraline on admission 04/29 when he had been on 50mg 04/25) -lowered his lithium to 300mg bid due to CKD3 , -lowered gabapentin to 600 tid (from 800) gabapentin also goes thru kidneys- and pt is sleepy and snoring -decreased back to sertraline to 50mg -lowering his pm clonazepam over weekend due to sleep apneic like pattern- Hospital course: 05/02 Patient reports that he is feeling really good, good mood and hopeful. Says that when he came in he was feeling uncontrolled and in a bad condition but now feels medications are right and he is doing well. Denies any AVH or any SI. Discussed cocaine abuse and he says he took cocaine only because he felt down and was otherwise sober for 11 years; however he is still thinking he would benefit from a program for substance abuse. Also discussed stopping naproxen since he is on lithium with which he agrees also given CKD -patient creatinine bumped up however it remains similar to baseline -no dizziness or blurred vision -will keep current regimen as patient says he is feeling better 05/03 patient reports he is feeling a little down today though does not know why; agrees to increase Latuda; acknowledged that he abuses heroin multiple times a week -placed addiction consult Patient remains in good behavioral and impulse control, appropriate with peers and staff Patient is stable on current medication regimen 05/04/25: Meet with patient with the application designer in exam room. Report anxiety a 3/10 and depression a 4/10. Sleep and appetite are good. Denies SI/SIB/HI. Report he saw couple of things and heard the voices talking but I did not talk to them in his room last night but not at this current time. He would like to go to treatment program for aftercare. Patient shares story about his that has made him depressed. Report it was a quick for only 3 months and he is still in the process of . He remains angry at this marriage as he spent a lot of money into the wedding. SW sent out referral to [facility], pending result. Also met with addition team. Per addition team note: Risk reduction discussed. Encouraged patient to remain connected to [employer] No evidence of opioid use or opioid use disorder--no indication for MOUD at this time 05/05/25: Meet with patient via [employer] services. Patient reports feeling sad today but do not know why. He hopes the referall are good and able to get to program. Reviewed with patient regarding and reason for refusing Latuda yesterday. Report that Laila does not do anything for him. Educate patient that if he does not take it consistently, the voices and depression probably will get worse. Educate patient to take meds with food and effectiveness is pending as dose recently increased. Report hearing voices yesterday but he does not talk to the voices. He appears to be sad and depressed, quiet, not bright as he usually is. No other behavior. Facial skin improved. No red spot or rash observed. Change Hydrocortisone to PRN. Per SW: pending result from [facility]. Will also send referral out to [facility]. 05/06/25: Meet with patient with team include MARCIA, RN and application designer. Patient reports phone assessment with RCA yesterday went well motivated . MARCIA reminds patient that referral also sent out to [facility] with pending results. Report improving in anxiety and depression but more anxious at night. Report sleeping good and no issues with appetite. Patient says I do not heave voices but I see them . Patient hears them taking, they looked at me and laugh but patient says he was able to ignore the voices. Reviewed [place] level which is WNL. Slept for 8 hours, listen to music as coping skills. Patient appears much calmer this time compared to last time when he was on M3 last admission. Feeling like he is on depressive side now. Encourage medication compliant especially with [place] which he did take it yesterday. Confirmed that last NILDA use was almost 3 weeks ago. 05/07/25: Meet with patient via application designer service ID # [id number]. Patient slept for 8 hours, was compliant with meds. Mood is sad and missing his family. Family in [place], he usually calls family which made him happier. Report anxiety and depression. Hearing voices but denies command in nature. Patient did not attend groups. 05/08/25: Met with patient with application designer ID #[id number]. Reported that he could not sleep last night. Blame it on Latuda. Seem he does not like taking Latuda. Perseverative on not able to sleep. Observe patient napping most of the day, on and off. Educate patient on not napping too much during daytime. Also educate patient on potential sleep apnea which affect his quality of sleep. He he wanted to have Latuda to reduce down to 60 from 80 mg. Denies voices. Very inconsistent with reports regarding sleep and mood. Remind patient that we are waiting to hear from [facility] and [facility]. We will discharge when bed is available Lower down on Latuda per pt request from 80mg to 60mg. 05/09 Patient reports that his mood is good. Discussed symptoms and patient denies any actual visual hallucinations; chronically he sometimes sees shadows which he knows are not real and just ignores them; patient agrees that it is due to history of trauma. Patient and freelance writer discussed substance abuse and he says he has been using IV heroin daily for long-time; discussed MAT patient wants to get on Suboxone. Furnace Mechanic Helper reviewed risks/side effects and also how to take this medication and patient very much likes the idea and wants to start 05/09 Patient reports he is doing well and still hopeful to get into a program. Mood is good. Discussed Suboxone since patient found it quite sedating. Patient revised his report on how much heroin he uses and says he actually has not used heroin for over year (the day before told freelance writer he was using it daily) and thus agrees this is the reason for being sedated with Suboxone. Patient was ambivalent for awhile but eventually decided he wants to remain on Suboxone but at a low dose 2 mg b.i.d., so that he does not end up relapsing on heroin. Patient remains in good behavioral and impulse control and appropriate with peers and staff; engaged in treatment and attending groups. Patient is not in imminent risk for harm to self or others and appropriate to return to the community for treatment. Patient is stable on current medication regimen Plan: CV Q 15 minute checks Start Suboxone and will titrate to 8 mg daily Decreased Latuda down to 60mg on 05/08 per patient request. -sertraline back to 75 mg (on review he was put on 150mg sertraline on admission 04/29 when he had been on 50mg 04/25) -lowered his lithium to 300mg bid due to CKD3 , -lowered gabapentin to 600 tid (from 800) gabapentin also goes thru kidneys- and pt is sleepy and snoring -decreased back to sertraline to 50mg -lowering his pm clonazepam over weekend due to sleep apneic like pattern- Medical comorbidities HTN Continue amlodipine HLD Continue fenofibrate CKD3 Baseline creatinine 1.6-1.8 Likely FRANKIE, undiagnosed Follow up outpatient for sleep study Patient educated on: diagnosis, medication risk/benefits, substance abuse and therapeutic strategies Informed Consent: understands Reason for continued inpatient stay Substantial Risk for: stable for discharge Time Spent With Patient Time: Total time managing care of this patient today ____ minutes.
[2025-05-10] MEDS: Buprenorphine/Naloxone 2/0.5mg FILM 1 FILM SUBLINGUAL (17:05)
[2025-05-10 20:00] VITALS: BP 138/63; PULSE 85; RESP 17; TEMP 36.6; O2SAT 91
[2025-05-11 08:12] VITALS: BP 147/91; PULSE 110; RESP 16; TEMP 36.9; O2SAT 92
[2025-05-11] MEDS: Buprenorphine/Naloxone 2/0.5mg FILM 1 FILM SUBLINGUAL (08:35)
--- NOTE | 2025-05-11 09:12 | P.DS_ITS ---
DS: Providers Provider Date of Service: 05/11/25 Date of admission: 04/29/25 18:09 Date of discharge: 05/11/25 Primary care physician: [facility] Admitting clinician: Marie Otero Consults: 04/29/25 19:01 Consult to Hospitalist Routine Comment: Consulting Provider[place] [facility] Reason For Exam: New external admit H+P 05/03/25 23:58 Addiction Medicine Provider Routine Consulting Provider: Addiction Covering Reason for consultation: cocaine/heroin; MAT and after care planning Attending physician on discharge: Bob Sams DS: Diagnosis Discharge Diagnosis (1) Cocaine use disorder: Status: Acute (2) PTSD (post-traumatic stress disorder): Status: Acute (3) Depression: Status: Acute (4) CKD (chronic kidney disease) stage 3, GFR 30-59 ml/min: Status: Acute DS: Medications Discharge Medications Home Medications: Previous Rx's ?Medication ?Instructions ?Recorded amlodipine 5 mg tablet 5 mg PO DAILY 30 days #30 ta bs 05/11/25 buprenorphine 2 mg-naloxone 0.5 mg 1 film sublingual B ID@0900,1400 30 05/11/25 sublingual film (Suboxone) days #60 film doxepin 50 mg capsule 50 mg PO BEDTIME 30 days #30 caps 05/11/25 fenofibrate 150 mg capsule 150 mg PO DAILY 30 days #30 caps 05/11/25 gabapentin 600 mg tablet 600 mg PO TID 30 days #90 ta bs 05/11/25 hydrocortisone 1 % topical cream 1 appl topical BID OR N Itching 30 05/11/25 days #28.35 grams lurasidone 60 mg tablet 60 mg PO DAILY@1700 30 days #30 05/11/25 tabs melatonin 3 mg tablet 6 mg (2 x 3 mg) PO BEDTIME 3 0 days 05/11/25 #60 tabs sertraline 50 mg tablet 75 mg (1.5 x 50 mg) PO DAILY 30 05/11/25 days #45 tabs DS: Summary Hospital Course Hospital Course: Met with patient and Bulb Grower Dorene and discussed [place] and that it was held since last weekend. Since patient reports he's been feeling in a good mood off it, he would like to remain off it for now and see if mood remains stable Patient decided to remai Time Spent with Patient Time attestation: Total time managing care of this patient today ____ minutes. 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 [place] [Primary Care Provider, Primary Care] - 1 Week Referral Note: Follow-up appointment to be scheduled upon discharge from [facility]. Discharge Medications: New buprenorphine-naloxone [Suboxone] 2-0.5 mg Film 1 film sublingual BID@0900,1400 30 Days Qty: 60 0RF Continued doxepin 50 mg Capsule 50 mg PO BEDTIME 30 Days Qty: 30 0RF amlodipine 5 mg tablet 5 mg PO DAILY 30 Days Qty: 30 0RF melatonin 3 mg Tablet 6 mg PO BEDTIME 30 Days Qty: 60 0RF hydrocortisone 1 % Cream 1 appl TOPICAL BID PRN (Reason: Itching) 30 Days Qty: 28.35 0RF Rx Instructions: apply to cheeks BID as needed Changed gabapentin 600 mg tablet 600 mg PO TID 30 Days Qty: 90 0RF sertraline 50 mg Tablet 75 mg PO DAILY 30 Days Qty: 45 0RF fenofibrate 150 mg capsule 150 mg PO DAILY 30 Days Qty: 30 0RF lurasidone 60 mg tablet 60 mg PO DAILY@1700 30 Days Qty: 30 0RF Rx Instructions: must administer with food (at least 350 calories) Discontinued meloxicam 15 mg Tablet 15 mg PO DAILY lithium carbonate 150 mg Capsule 300 mg PO DAILY clonazepam 2 mg Tablet 2 mg PO BID lithium carbonate 300 mg Tablet 600 mg PO BEDTIME sertraline 100 mg tablet 150 mg PO DAILY gabapentin 800 mg tablet Rx Instructions: Take 1 tablet (800 mg total) by mouth 3 (three) times a day. Discharge Orders: Discharge Order (Routine); Ordered 05/11/25 Ordered By: Bob Sams Diet: Regular diet Activity on Discharge: As tolerated Stand Alone Forms: Patient Portal Discharge page Print Language: Tuvaluan Care Plan Goals: Maintain mood and safe behaviors Take medications as prescribed Continue to pursue sobriety Practice coping skills Continue with outpatient providers and reach out to them as needed Health Concerns: Mood stability and behaviors Sobriety Hypertension Neuropathic pain Plan of Treatment: Follow up with your PCP, psychiatric provider and other outpatient providers regarding above concerns Take medications as prescribed Assessment: Risk assessment at time of discharge:? Patient was interviewed prior to discharge and found to be fully oriented and without any SI or HI. Patient has improved insight and judgment and wants to continue treatment. Patient is not in imminent risk of harm to self or others and has a safety plan that includes presenting to the closest ER or calling 911 if feeling unsafe.? Patient has been observed closely by nursing and unit staff throughout admission; patient has not engaged in any behaviors that suggest dangerousness to self or others and has demonstrated appropriate behaviors and impulse control
== END 2025-05-11 10:05 | disposition home or self-care (01) | DRG 751 ==
PROVIDERS: Psychiatry & Neurology Psychiatry; Absent Provider Nurse Practitioner Psychiatric/Mental Health; Admitting Provider Nurse Practitioner Psychiatric/Mental Health; PCP Dentist General Practice; Visit Provider Psychiatry & Neurology Psychiatry
DX: F33.2 Major depressive disorder, recurrent severe without psychotic features (principal); R45.851 Suicidal ideations; I12.9 Hypertensive chronic kidney disease with stage 1 through stage 4 chronic kidney disease, or unspecified chronic kidney disease; F14.10 Cocaine abuse, uncomplicated; F43.10 Post-traumatic stress disorder, unspecified; E78.5 Hyperlipidemia, unspecified; N18.30 Chronic kidney disease, stage 3 unspecified; G47.33 Obstructive sleep apnea (adult) (pediatric); F11.20 Opioid dependence, uncomplicated; Z59.02 Unsheltered homelessness; Z79.899 Other long term (current) drug therapy
CPT/HCPCS: 36415; 80048; 80053; 80061; 80178; 82947; 83036; 84439; 84443

== ENCOUNTER → 2025-04-29 18:09 | Outpatient (BNV) | payer OTHER, SELFPAY | PROVIDERS: Absent Provider Nurse Practitioner Psychiatric/Mental Health; Admitting Provider Nurse Practitioner Psychiatric/Mental Health; PCP Dentist General Practice; Visit Provider Psychiatry & Neurology Psychiatry | DX: F33.2 Major depressive disorder, recurrent severe without psychotic features (principal); R45.851 Suicidal ideations; G47.39 Other sleep apnea | CPT/HCPCS: 99232 ==

== ENCOUNTER → 2025-04-29 18:09 | Outpatient (BNV) | payer MEDICAID, SELFPAY | PROVIDERS: Absent Provider Nurse Practitioner Psychiatric/Mental Health; Admitting Provider Nurse Practitioner Psychiatric/Mental Health; PCP Dentist General Practice; Visit Provider Student in an Organized Health Care Education/Training Program | DX: Z00.8 Encounter for other general examination (principal) | CPT/HCPCS: 99223 ==